=== PATIENT | female | born 1980 | race Caucasian/White ===

== ENCOUNTER 2017-01-13 22:38 | Inpatient (IN) | payer OTHER ==
[~2017-01-13] VITALS: Ht 160 cm; Wt 68.9 kg
[~2017-01-13 22:38] MED LIST: ALLERGY MED; MONT10TA24 PO; OMEP40CA6 PO; PROP20TA4 PO; SPIR25TA PO; URSO300C3 PO; [UNRECOGNIZED DRUG - REMARK]
[2017-01-14 00:07] LABS: URINE BLOOD (Dip) POC 2+ (NEGATIVE)
--- NOTE | 2017-01-14 00:09 | ERA ---
ER Documentation Chief Complaint Date/Time DATE: 01/14/17 TIME: 00:09 Chief Complaint rectal bleed,abd pain, abd & BLE swelling,hx liver cirrhosis HPI The patient is a 36-year-old female, presenting to the ER because of rectal bleeding yesterday with bright red blood. She has similar symptoms previously. He denies syncope, near syncope, dizziness, weakness. Denies neck pain, chest pain, abdominal pain, vomiting with dysuria, constipation. She does not smoke or drink Past medical history: Cirrhosis, hemorrhoids Past surgical history: Cholecystectomy, ROS All systems reviewed and are negative except as per history of present illness. Medications Home Meds Reported Medications Obeticholic Acid (Ocaliva) 5 Mg Tablet, 5 MG PO, TAB 01/14/17 Montelukast Sodium* (Montelukast Sodium*) 10 Mg Tablet, 10 MG PO QHS, #30 TAB 10/13/15 Propranolol Hcl* (Propranolol Hcl*) 20 Mg Tablet, 20 MG PO DAILY, TAB 10/13/15 Spironolactone* (Aldactone*) 25 Mg Tablet, 25 MG PO DAILY, #30 TAB 10/13/15 Ursodiol* (Ursodiol*) 300 Mg Capsule, 300 MG PO QPM, CAP 10/13/15 Omeprazole* (Omeprazole*) 40 Mg Capsule.dr, 40 MG PO DAILY, #30 CAP 10/13/15 Discontinued Reported Medications [Allergy Med] No Conflict Check, PRN 03/19/14 [Liver Cirrohsis Med] No Conflict Check 03/19/14 Allergies Allergies: Coded Allergies: No Known Drug Allergies (Unverified Allergy, Unknown, 01/14/17) PMhx/Soc History of Surgery: Yes (CHOLI.,C-SEC.X2) Anesthesia Reaction: No Hx Neurological Disorder: No Hx Respiratory Disorders: No Hx Cardiac Disorders: No Hx Psychiatric Problems: No Hx Miscellaneous Medical Probl: No Hx Alcohol Use: No Hx Substance Use: No Hx Tobacco Use: No Physical Exam Vitals Vital Signs Date Time Temp Pulse Resp B/P Pulse Ox O2 Delivery O2 Flow Rate FiO2 01/14/17 01:19 98.5 71 18 118/77 98 Room Air 01/13/17 22:47 98.5 80 18 124/70 98 Physical Exam Const: No acute distress. Pale Head: Atraumatic. Eyes: Normal Conjunctiva. ENT: Normal External Ears, Nose and Mouth. Neck: Full range of motion. No meningismus. Resp: Clear to auscultation bilaterally. Cardio: Regular rate and rhythm. Abd: Soft, non distended, normal bowel sounds, non tender. Skin: No petechiae or rashes. Back: No midline or flank tenderness. Ext: No cyanosis, or edema. Small external hemorrhoids Neur: Awake and alert. No focal deficit Psych: Normal Mood and Affect. Result Diagram: 01/14/17 0015 01/14/17 0015 Results 24 hrs Laboratory Tests Test 01/14/17 00:10 01/14/17 00:15 Bedside Urine pH (LAB) 6.0 Bedside Urine Protein (LAB) 1+ Bedside Urine Glucose (UA) Negative Bedside Urine Ketones (LAB) Negative Bedside Urine Blood 2+ Bedside Urine Nitrite (LAB) Negative Bedside Urine Leukocyte Esterase (L Negative White Blood Count 2.910^3/ul Red Blood Count 3.6810^6/ul Hemoglobin 9.0g/dl Hematocrit 28.6% Mean Corpuscular Volume 77.7fl Mean Corpuscular Hemoglobin 24.5pg Mean Corpuscular Hemoglobin Concent 31.5g/dl Red Cell Distribution Width 27.9% Platelet Count 4210^3/UL Mean Platelet Volume fl Neutrophils % 60.6% Lymphocytes % 25.6% Monocytes % 9.5% Eosinophils % 2.8% Basophils % 0.4% Nucleated Red Blood Cells % 0.0/100WBC Neutrophils # 1.710^3/ul Lymphocytes # 0.710^3/ul Monocytes # 0.310^3/ul Eosinophils # 0.110^3/ul Basophils # 0.010^3/ul Nucleated Red Blood Cells # 0.010^3/ul Prothrombin Time 17.1Sec Prothrombin Time Ratio 1.3 INR International Normalized Ratio 1.39 Activated Partial Thromboplast Time 25.4Sec Sodium Level 139mmol/L Potassium Level 3.9mmol/L Chloride Level 109mmol/L Carbon Dioxide Level 24mmol/L Anion Gap 10 Blood Urea Nitrogen 12mg/dl Creatinine 0.58mg/dl Glucose Level 92mg/dl Calcium Level 8.3mg/dl Total Bilirubin 3.1mg/dl Direct Bilirubin 1.70mg/dl Indirect Bilirubin 1.4mg/dl Aspartate Amino Transf (AST/SGOT) 149IU/L Alanine Aminotransferase (ALT/SGPT) 81IU/L Alkaline Phosphatase 378IU/L Total Protein 6.1g/dl Albumin 2.7g/dl Globulin 3.40g/dl Albumin/Globulin Ratio 0.79 Procedures/MDM MEDICAL MAKING DECISION: The patient is a 35-year-old female, presenting with acute hematochezia, with severe thrombocytopenia. The differential diagnoses considered include but are not limited to hemorrhoids , gastritis, peptic ulcer disease, esophageal varices, Sanna-Kessler tear, carcinoma, polyp, hemorrhoid, fissure, diverticulosis, angiodysplasia. Departure Diagnosis: Primary Impression: Hematochezia Additional Impressions: Thrombocytopenia Pancytopenia Condition: Stable Comments I discussed the findings with the patient. I discussed the patient with the on- call hospitalist Dr. Ling at 2:30 AM who was made aware of the lab, the treatment, the patient condition. The patient is admitted to medical surgery bed ZAID COVARRUBIAS MD Jan 14, 2017 00:09
[2017-01-14 00:31] LABS: ADD SCAN DIFF NO
[2017-01-14 00:44] LABS: ABNORMAL IP MESSAGE 1; BASOPHILS % 0.4 % (0.0-2.0); EOSINOPHILS # 0.1 10^3/ul (0.0-0.5); EOSINOPHILS % 2.8 % (0.0-7.0); HEMATOCRIT 28.6 % (37.0-47.0); LYMPHOCYTES # 0.7 10^3/ul (0.8-2.9); LYMPHOCYTES % 25.6 % (15.0-51.0); MEAN CORPUSCULAR HEMOGLOBIN 24.5 pg (29.0-33.0); MEAN CORPUSCULAR HGB CONC 31.5 g/dl (32.0-37.0); MEAN CORPUSCULAR VOLUME 77.7 fl (82.0-101.0); MONOCYTE # 0.3 10^3/ul (0.3-0.9); MONOCYTES % 9.5 % (0.0-11.0); NEUTROPHIL # 1.7 10^3/ul (1.6-7.5); NEUTROPHILS % 60.6 % (39.0-77.0); RED BLOOD COUNT 3.68 10^6/ul (4.20-5.40); RED CELL DISTRIBUTION WIDTH 27.9 % (11.5-14.5); WHITE BLOOD COUNT 2.9 10^3/ul (4.8-10.8)
[2017-01-14] MEDS ORDERED: OBET5TAB PO (00:47)
[2017-01-14 01:01] LABS: INR 1.39; PROTIME 17.1 Sec (12.2-14.2); PT RATIO 1.3
[2017-01-14 01:02] LABS: PARTIAL THROMBOPLASTIN TIME 25.4 Sec (25.0-35.0)
[2017-01-14 01:05] LABS: PLATELET COUNT 42 10^3/UL (140-415)
[2017-01-14 01:10] LABS: ALBUMIN 2.7 g/dl (3.3-4.9); ALBUMIN/GLOBULIN RATIO 0.79; BILIRUBIN,DIRECT 1.7 mg/dl (0.00-0.20); BILIRUBIN,INDIRECT 1.4 mg/dl (0-1.1); BILIRUBIN,TOTAL 3.1 mg/dl (0.2-1.3); CALCIUM 8.3 mg/dl (8.4-10.2); CREATININE 0.58 mg/dl (0.44-1.00); POTASSIUM 3.9 mmol/L (3.5-5.1)
[2017-01-14 01:19] VITALS: TEMP 98.5
[2017-01-14 01:39] LABS: TOTAL PROTEIN 6.1 g/dl (6.1-8.1)
[2017-01-14] MEDS ORDERED: ONDANSETRON 4 MG INJ IV PRN (03:30)
[2017-01-14] MEDS ORDERED: NACL 0.9% 3 ML SYG IV SCH (03:30)
[2017-01-14 04:33] VITALS: BP 108/58; RESP 19
[2017-01-14 04:40] VITALS: Ht 160 cm; Wt 68.9 kg
[2017-01-14] MEDS: PANTOPRAZOLE 40 MG INJ IV SCH (05:30)
[2017-01-14] MEDS ORDERED: FUROSEMIDE 40 MG INJ IV ONE (05:30)
--- NOTE | 2017-01-14 06:51 | HP ---
Date/Time of Note Date/Time of Note DATE: 01/14/17 TIME: 06:45 Assessment/Plan VTE Prophylaxis VTE Prophylaxis Intervention: SCD's Lines/Catheters IV [facility]from [facility] Saline Lock Assessment/Plan Chief Complaint/Hosp Course This is a 36-year-old female being admitted to the [facility] floor for: #1 rectal bleed: Patient states that she noticed bright red blood per rectum for the past 2 days. In the ED no blood was noted rectally. Will obtain fecal occult blood sample. Will trend H&H every 6 hours. Type and screen the patient. Will consult GI for further treatment strategy. At the current time will keep patient n.p.o. until evaluated by GI. #2 cirrhosis: The patient and the daughter state that ever since she started her medication ocaliva approximately 2 months ago that she has been feeling fatigued and not herself. At the current time we will continue her home medications however we will hold Ocaliva Also at the current time will give the patient 1 dose of Lasix 40 mg IV 1. I am hesitant to start her on lactulose right now secondary to possible lower GI bleeding. Will hold this for now until evaluated by GI. Will also obtain an ammonia level. LFTs are elevated. #3 thrombocytopenia: Patient's platelet count right now is 42,000. As the patient has been experiencing bleeding. We will transfuse her 1 unit of platelets. Patient is agreeable to this. Will obtain type and screen. #4 microcytic anemia. Will obtain iron studies. Medications and further recommendations will be implemented as per the hospital course and then any G recommendations as per #1. #5 DVT and GI prophylaxis: SCDs, Protonix. Further treatment strategy will be implemented as per the clinical course Problems: HPI/ROS Admit Date/Time Admit Date/Time Jan 14, 2017 at 02:37 Hx of Present Illness Chief complaint: Rectal bleeding The patient is a 36-year-old female, presenting to the ER because of rectal bleeding yesterday with bright red blood. She has similar symptoms previously. He denies syncope, near syncope, dizziness, weakness. Denies neck pain, chest pain, vomiting with dysuria, constipation. She does not smoke or drink. Of note patient and her family member also state that the patient recently has been more lethargic. She also has noticed more distention in her abdomen with some occasional right upper quadrant pain. She also has noticed at times some swelling in her lower extremities. Also her eyes have been more yellow. She has decreased appetite and also is a bit more irritable. Allergies: NKDA Medications: See KYREE MORRIS Const: As per HPI Eyes : As per his ENT: No pain, sore throat, congestion, congestion, dysphagia or discharge Respiratory: No shortness of breath, cough, sputum, wheezing, or pleuritic pain Cardiovascular: No chest pain, palpitation, PND, or edema GI : As per HPI Genitourinary: No dysuria, hematuria, flank pain , discharge or CVA tenderness Musculoskeletal: No joint pain, back pain, neck pain, restricted range of motion in neck or joints Skin: No rash, bruising or hives Neuro: No headache, dizziness, syncope, seizure, focal weakness Endocrine: No polyuria, polydipsia, temperature intolerance Psych: No hallucination, depression, anxiety or suicidal ideation PMH/Family/Social Past Medical History Cirrhosis, gastritis, Past Surgical History Cholecystectomy, 2 C-sections, Family History Significant Family History: cancer (Liver cancer in both of her grandfathers) Social History Alcohol Use: none Smoking Status: Never smoker Drug Use: none Exam/Review of Systems Vital Signs Vitals Vital Signs Date Time Temp Pulse Resp B/P Pulse Ox O2 Delivery O2 Flow Rate FiO2 01/14/17 04:33 98.0 65 19 108/58 100 01/14/17 01:19 Room Air Intake and Output 01/13/17 01/13/17 01/14/17 15:00 23:00 07:00 Intake Total 0 ml Output Total 800 ml Balance -800 ml Exam Exam General: Patient is well-developed and laying in bed in no acute distress HEENT: Atraumatic, normocephalic. The pupils are equal, round and reactive. Scleral icterus Neck: Supple with full range of motion. No rigidity or meningismus Chest: Nontender Lungs: Clear to auscultation bilaterally no crackles rales or wheezing Heart: Normal S1-S2, Regular rhythm and rate. No overt murmur appreciated Abdomen: Soft, tender to palpation of the right upper quadrant, mild distention noted, normal bowel sounds. Extremities: Trace edema of the lower extremities Neurologic: Normal mental status, speech normal, cranial nerves II through XII are intact, motor and sensory are intact, no focal weakness Labs Result Diagram: 01/14/17 0015 01/14/17 0015 Medications Medications Current Medications Ondansetron HCl (Zofran Inj) 4 mg Q6H PRN IV NAUSEA AND/OR VOMITING; Start at 03:30 Pantoprazole (Protonix Iv) 40 mg DAILY@06 IV Last administered on 01/14/17t 05: 30; Admin Dose 40 MG; Start 01/14/17 at 06:00 Montelukast Sodium (Singulair) 10 mg QHS PO ; Start 01/14/17 at 21:00 Propranolol HCl (Inderal) 20 mg DAILY PO ; Start 01/14/17 at 09:00 Spironolactone (Aldactone) 25 mg DAILY PO ; Start 01/14/17 at 09:00 Ursodiol (Actigall) 300 mg BID PO ; Start 01/14/17 at 09:00 MICHELLE MUÑOZ Jan 14, 2017 06:51
[2017-01-14 08:28] LABS: HEMATOCRIT 29.6 % (37.0-47.0); HEMOGLOBIN 9.1 g/dl (12.0-16.0)
[2017-01-14 08:39] VITALS: BP 90/50; RESP 16
[2017-01-14 09:07] LABS: IRON 60 ug/dl (35-150)
[2017-01-14 09:16] LABS: TOTAL IRON BINDING CAPACITY 397 ug/dl (241-421)
--- NOTE | 2017-01-14 09:46 | PN ---
Date/Time of Note Date/Time of Note DATE: 01/14/17 TIME: 09:45 Assessment/Plan VTE Prophylaxis VTE Prophylaxis Intervention: SCD's Lines/Catheters IV Catheter Type (from Nrs): Saline Lock Assessment/Plan Assessment/Plan 36 yo F with cirrhosis, h/o hemorrhoids here with BRBPR PLAN GI to see today hgb 9, goal >7 cont home meds DVT prophx with SCDs only Subjective 24 Hr Interval Summary Free Text/Dictation nad, resting in bed Exam/Review of Systems Vital Signs Vitals Vital Signs Date Time Temp Pulse Resp B/P Pulse Ox O2 Delivery O2 Flow Rate FiO2 01/14/17 08:39 97.7 67 16 90/50 98 01/14/17 01:19 Room Air Intake and Output 01/13/17 01/13/17 01/14/17 15:00 23:00 07:00 Intake Total 0 ml Output Total 800 ml Balance -800 ml Exam jaundiced resp nonlabored responds to questions appropriately moves exts freely no rashes Results Result Diagram: 01/14/17 0710 01/14/17 0015 Results 24 hrs Laboratory Tests Test 01/14/17 00:10 01/14/17 00:15 01/14/17 03:45 01/14/17 07:10 Bedside Urine pH (LAB) 6.0 Bedside Urine Protein (LAB) 1+ H Bedside Urine Glucose (UA) Negative Bedside Urine Ketones (LAB) Negative Bedside Urine Blood 2+ H Bedside Urine Nitrite (LAB) Negative Bedside Urine Leukocyte Esterase (L Negative White Blood Count 2.9 L Red Blood Count 3.68 L Hemoglobin 9.0 L 9.1 L Hematocrit 28.6 L 29.6 L Mean Corpuscular Volume 77.7 L Mean Corpuscular Hemoglobin 24.5 L Mean Corpuscular Hemoglobin Concent 31.5 L Red Cell Distribution Width 27.9 H Platelet Count 42 L Mean Platelet Volume Neutrophils % 60.6 Lymphocytes % 25.6 Monocytes % 9.5 Eosinophils % 2.8 Basophils % 0.4 Nucleated Red Blood Cells % 0.0 Neutrophils # 1.7 Lymphocytes # 0.7 L Monocytes # 0.3 Eosinophils # 0.1 Basophils # 0.0 Nucleated Red Blood Cells # 0.0 Prothrombin Time 17.1 H Prothrombin Time Ratio 1.3 INR International Normalized Ratio 1.39 Activated Partial Thromboplast Time 25.4 Sodium Level 139 Potassium Level 3.9 Chloride Level 109 Carbon Dioxide Level 24 Anion Gap 10 Blood Urea Nitrogen 12 Creatinine 0.58 Glucose Level 92 Calcium Level 8.3 L Total Bilirubin 3.1 H Direct Bilirubin 1.70 H Indirect Bilirubin 1.4 H Aspartate Amino Transf (AST/SGOT) 149 H Alanine Aminotransferase (ALT/SGPT) 81 H Alkaline Phosphatase 378 H Total Protein 6.1 Albumin 2.7 L Globulin 3.40 H Albumin/Globulin Ratio 0.79 Stool Occult Blood POSITIVE Iron Level 60 Total Iron Binding Capacity 397 Percent Iron Saturation 15 L Ammonia 31 H Medications Medications Current Medications Ondansetron HCl (Zofran Inj) 4 mg Q6H PRN IV NAUSEA AND/OR VOMITING; Start at 03:30 Pantoprazole (Protonix Iv) 40 mg DAILY@06 IV Last administered on 01/14/17t 05: 30; Admin Dose 40 MG; Start 01/14/17 at 06:00 Montelukast Sodium (Singulair) 10 mg QHS PO ; Start 01/14/17 at 21:00 Propranolol HCl (Inderal) 20 mg DAILY PO ; Start 01/14/17 at 09:00 Spironolactone (Aldactone) 25 mg DAILY PO ; Start 01/14/17 at 09:00 Ursodiol (Actigall) 300 mg BID PO ; Start 01/14/17 at 09:00 IBIS CROWE MD Jan 14, 2017 09:46
--- NOTE | 2017-01-14 10:14 | CONS ---
Date/Time of Note Date/Time of Note DATE: 01/14/17 TIME: 09:58 Assessment/Plan Assessment/Plan Additional Assessment/Plan Assessment * Hematochezia Lower GI bleed vs upper GI bleed * Thrombocytopenia * Cirrhosis of Liver Plan * Colonoscopy /EGD risks and benefit explained to patient and agreed with planned procedure * Trend liver enzymes * Monitor Hemoglobin and hematocrit and transfuse with 1 unit PRBC<hgb7.5,2 units PRBC hgb<7 * May have clear liquids Consultation Date/Type/Reason Admit Date/Time Jan 14, 2017 at 02:37 Date of Consultation: Jan 14, 2017 Type of Consultation: gastroenterology Reason for Consultation hematochezia Referring Provider: IBIS CROWE MD Hx of Present Illness 36 year old female with past medical history of liver cirrhosis, thrombocytopenia was brought to emergency room complaining of hematochezia x 3 days ,about 2 tsp per bout ,with no abdominal pain,nausea,hematemesis,on nausea.She denies any chronic intake of NSAIDs.She also had EGD last 05/2016 no esophageal varices,moderate gastritis. Emergency room work up revealed anemia with hemoglobin 9 platelet count 42,PT 17.1,INR 1.39,Total bilirubin 3.1,AST 149,ALT 81,alkaline phosphatase 378.ammonia 31,stool occult blood positive Presently ,no episode of bleeding and awaiting transfusion of platelet. Constitutional: improved, no complaints Eyes: no complaints ENT: no complaints Respiratory: no complaints Cardiovascular: no complaints Gastrointestinal: blood Genitourinary: no complaints Musculoskeletal: no complaints Skin: no complaints Neurologic: no complaints Endocrine: no complaints Lymphatic: no complaints Psychological: nl mood/affect, no complaints Immunologic: no complaints Past Medical History Medical History: other (liver cirrhosis) Past Surgical History Past Surgical Hx: no surgical history Family History Significant Family History: no pertinent family hx Social History Alcohol Use: none Smoking Status: Never smoker Drug Use: none Exam/Review of Systems Vital Signs Vitals Vital Signs Date Time Temp Pulse Resp B/P Pulse Ox O2 Delivery O2 Flow Rate FiO2 01/14/17 08:39 97.7 67 16 90/50 98 01/14/17 01:19 Room Air Intake and Output 01/13/17 01/13/17 01/14/17 15:00 23:00 07:00 Intake Total 0 ml Output Total 800 ml Balance -800 ml Exam Constitutional: alert, oriented, well developed Psych: nl mood/affect, no complaints Head: atraumatic, normocephalic Eyes: EOMI, PERRL, icteric, nl conjunctiva, nl lids ENMT: nl external ears & nose, nl lips & teeth, nl nasal mucosa & septum Neck: non-tender, supple Respiratory: clear to auscultation, normal air movement Cardiovascular: nl pulses, regular rate and rhythm Gastrointestinal: nl liver, spleen, non-tender, soft Musculoskeletal: nl extremities to inspection, nl gait and stance Extremities: normal pulses Neurological: [employer] II-XII intact, nl mental status, nl speech, nl strength Skin: nl turgor, No rash or lesions Lymph: nl lymph nodes Results Result Diagram: 01/14/17 0710 01/14/17 0015 Results 24 hrs Laboratory Tests Test 01/14/17 00:10 01/14/17 00:15 01/14/17 03:45 01/14/17 07:10 Bedside Urine pH (LAB) 6.0 Bedside Urine Protein (LAB) 1+ H Bedside Urine Glucose (UA) Negative Bedside Urine Ketones (LAB) Negative Bedside Urine Blood 2+ H Bedside Urine Nitrite (LAB) Negative Bedside Urine Leukocyte Esterase (L Negative White Blood Count 2.9 L Red Blood Count 3.68 L Hemoglobin 9.0 L 9.1 L Hematocrit 28.6 L 29.6 L Mean Corpuscular Volume 77.7 L Mean Corpuscular Hemoglobin 24.5 L Mean Corpuscular Hemoglobin Concent 31.5 L Red Cell Distribution Width 27.9 H Platelet Count 42 L Mean Platelet Volume Neutrophils % 60.6 Lymphocytes % 25.6 Monocytes % 9.5 Eosinophils % 2.8 Basophils % 0.4 Nucleated Red Blood Cells % 0.0 Neutrophils # 1.7 Lymphocytes # 0.7 L Monocytes # 0.3 Eosinophils # 0.1 Basophils # 0.0 Nucleated Red Blood Cells # 0.0 Prothrombin Time 17.1 H Prothrombin Time Ratio 1.3 INR International Normalized Ratio 1.39 Activated Partial Thromboplast Time 25.4 Sodium Level 139 Potassium Level 3.9 Chloride Level 109 Carbon Dioxide Level 24 Anion Gap 10 Blood Urea Nitrogen 12 Creatinine 0.58 Glucose Level 92 Calcium Level 8.3 L Total Bilirubin 3.1 H Direct Bilirubin 1.70 H Indirect Bilirubin 1.4 H Aspartate Amino Transf (AST/SGOT) 149 H Alanine Aminotransferase (ALT/SGPT) 81 H Alkaline Phosphatase 378 H Total Protein 6.1 Albumin 2.7 L Globulin 3.40 H Albumin/Globulin Ratio 0.79 Stool Occult Blood POSITIVE Iron Level 60 Total Iron Binding Capacity 397 Percent Iron Saturation 15 L Ammonia 31 H Medications Medications Current Medications Ondansetron HCl (Zofran Inj) 4 mg Q6H PRN IV NAUSEA AND/OR VOMITING; Start at 03:30 Pantoprazole (Protonix Iv) 40 mg DAILY@06 IV Last administered on 01/14/17t 05: 30; Admin Dose 40 MG; Start 01/14/17 at 06:00 Montelukast Sodium (Singulair) 10 mg QHS PO ; Start 01/14/17 at 21:00 Propranolol HCl (Inderal) 20 mg DAILY PO ; Start 01/14/17 at 09:00 Spironolactone (Aldactone) 25 mg DAILY PO ; Start 01/14/17 at 09:00 Ursodiol (Actigall) 300 mg BID PO ; Start 01/14/17 at 09:00 HARISH BLACKWOOD MD Jan 14, 2017 10:10
[2017-01-14] MEDS: SPIRONOLACTONE 25 MG TAB PO SCH (10:20)
[2017-01-14] MEDS: URSODIOL 300 MG CAP PO SCH ×2 (10:20→21:00)
[2017-01-14] MEDS: PROPRANOLOL 20 MG TAB PO SCH (10:21)
[2017-01-14 13:14] LABS: HEMATOCRIT 28.1 % (37.0-47.0); HEMOGLOBIN 8.4 g/dl (12.0-16.0)
[2017-01-14] MEDS ORDERED: BISACODYL (EC) 5 MG TAB PO ONE ×2 (16:00)
[2017-01-14] MEDS ORDERED: POLYETHYLENE GLYCOL 3350 119 GM POWDER PO ONE ×2 (16:00→18:30)
[2017-01-14] MEDS ORDERED: MAGNESIUM CITRATE 300 ML BTL PO ONE (17:30)
[2017-01-14 19:23] LABS: HEMATOCRIT 26.8 % (37.0-47.0); HEMOGLOBIN 8.3 g/dl (12.0-16.0)
[2017-01-14 20:02] VITALS: BP 120/70; RESP 18
[2017-01-14] MEDS: MONTELUKAST 10 MG TAB PO SCH (21:19)
[2017-01-15] VITALS (14 sets, daily range): BP systolic 99–128; BP diastolic 60–74; PULSE 56–62; RESP 12–20
[2017-01-15] MEDS ORDERED: morphine 10 MG INJ IM PRN (03:00)
[2017-01-15] MEDS ORDERED: morphine 2 MG INJ IV PRN (03:00)
[2017-01-15] MEDS: PANTOPRAZOLE 40 MG INJ IV SCH (05:20)
[2017-01-15 06:24] LABS: ADD SCAN DIFF NO
[2017-01-15 06:31] LABS: ABNORMAL IP MESSAGE 1; BASOPHILS % 0.7 % (0.0-2.0); EOSINOPHILS # 0.1 10^3/ul (0.0-0.5); HEMATOCRIT 28.5 % (37.0-47.0); HEMOGLOBIN 8.7 g/dl (12.0-16.0); LYMPHOCYTES % 34.1 % (15.0-51.0); MEAN CORPUSCULAR HEMOGLOBIN 24.2 pg (29.0-33.0); MEAN CORPUSCULAR HGB CONC 30.5 g/dl (32.0-37.0); MEAN CORPUSCULAR VOLUME 79.4 fl (82.0-101.0); MEAN PLATELET VOLUME 9.3 fl (7.4-10.4); MONOCYTE # 0.2 10^3/ul (0.3-0.9); MONOCYTES % 7.3 % (0.0-11.0); NEUTROPHIL # 1.7 10^3/ul (1.6-7.5); NEUTROPHILS % 54.6 % (39.0-77.0); RED BLOOD COUNT 3.59 10^6/ul (4.20-5.40); RED CELL DISTRIBUTION WIDTH 28.1 % (11.5-14.5)
[2017-01-15 07:05] LABS: CALCIUM 8.3 mg/dl (8.4-10.2); CREATININE 0.61 mg/dl (0.44-1.00); POTASSIUM 3.4 mmol/L (3.5-5.1)
--- NOTE | 2017-01-15 08:43 | GILP ---
DATE OF PROCEDURE: PROCEDURE: Colonoscopy to cecum. BRIEF HISTORY AND INDICATIONS: Patient with hematochezia. PREMEDICATION: Versed 3 mg, fentanyl 75 mcg, administered IV push by Dr. Manzano. INSTRUMENT USED: Olympus colonoscope. PREPARATION: Adequate. TECHNIQUE: After informed consent, with the patient/relatives understanding the procedure, its indic ations potential risks and complications, including but not limited to: allergic reaction, bleeding, perforation, infection, missed lesions and after all pertinent questions were answered to the patie nt's satisfaction, the patient/relatives signed the witnessed informed consent. Following this, premedication was administered slowly IV push by under careful cardiovascular and re spiratory monitoring with pulse oximetry, automatic blood pressure and space operations. Once the sedativ e effect was achieved, the patient was placed in the left lateral decubitus position, digital rectal examination was performed. The colonoscope was then introduced and advanced under visual control th roughout all segments of the colon including: the rectum, sigmoid, descending colon, splenic flexure , transverse colon, hepatic flexure, ascending colon and finally reaching the cecum which was clearl y identified by transillumination, finger indentation and the ileocecal valve. Careful examination o f the mucosa of the lower gastrointestinal tract both on insertion as well as withdrawal of the inst rument disclosed the following findings: Rectal mucosa: Small external hemorrhoids are present. Colonic mucosa: The colonic mucosa was unremarkable throughout. The ileocecal valve was clearly id entified and appears unremarkable. The instrument was withdrawn, reexamining the mucosa in detail. No additional abnormalities were noted with the exception of moderate size internal hemorrhoids. The instrument was then withdrawn, the patient tolerated the procedure well and was transferred out of the Endoscopy Suite awake and in good condition to continue recovery under observation. IMPRESSION: 1. Normal colonic mucosa to cecum. 2. Moderate size internal hemorrhoids, likely source of hematochezia. 3. Small external hemorrhoids. PLAN: The patient will be continued on the present regimen. Conservative management of hemorrhoida l disease will be instituted. Diet will be advanced. Dictated By: HARISH MANZANO MS/FAM Conf#: [id number] DID#: [id number]
--- NOTE | 2017-01-15 08:49 | GILP ---
DATE OF PROCEDURE: PROCEDURE: Esophagogastroduodenoscopy with biopsies. BRIEF HISTORY AND INDICATIONS: The patient is being evaluated for a history of cirrhosis of the [facility] er, due for surveillance EGD for varices. PREMEDICATION: Monitored anesthesia care by anesthesiologist. SURGEON: Harish Manzano MD PREMEDICATION: Versed 3 mg, fentanyl 75 mcg, administered IV push by Dr. Manzano. INSTRUMENT USED: Olympus panendoscope. TECHNIQUE: After informed consent, with the patient/relatives understanding the procedure, its indic ations, potential risks and complications, including but not limited to: allergic reaction, bleeding , perforation or infection, and after all pertinent questions were answered to the patient's satisfa ction, the patient/relatives signed witnessed informed consent. Following this, premedication was administered slowly IV push under careful cardiovascular and respi ratory monitoring with pulse oximetry, automatic blood pressure and monitoring analyst. Once the sedative effect was achieved the patient was place in the left lateral decubitus, the panen doscope was introduced and advanced under visual control. Careful examination of the upper gastrointestinal tract, both on insertion as well as withdrawal of the instrument disclosed the following findings: ESOPHAGUS: There is no evidence of significant esophageal varices. STOMACH: Upon entrance to the stomach air was insufflated. The gastric chicas distended normally. There is erythema of the mucosa, which is very mild. Biopsies were obtained to rule out H. pylori i nfection. The possibility of portal hypertensive gastropathy appears likely. PYLORUS: The pylorus appears patent and within normal limits, with no evidence of gastric outlet obs truction. DUODENUM: The duodenal mucosa was carefully examined in the duodenal bulb as well as the second port ion of the duodenum and appears unremarkable with no evidence of duodenitis, ulcer or neoplasm. The instrument was then withdrawn, the patient tolerated the procedure well and was transfer out of the endoscopy suite awake, and in good condition to continue recovery under observation IMPRESSION: 1. No evidence of esophageal varices. 2. Mild gastritis versus portal hypertensive gastropathy. Rule out H. pylori infection. Biopsies were obtained. PLAN: The patient will be treated with PPIs. Pathology will be reviewed as soon as available and elder rveillance endoscopy for varices in 6 months is recommended. Dictated By: HARISH MANZANO MS/FAM Conf#: [id number] [facility]#: [id number]
[2017-01-15] MEDS: URSODIOL 300 MG CAP PO SCH ×2 (09:59→20:24)
[2017-01-15] MEDS: SPIRONOLACTONE 25 MG TAB PO SCH (09:59)
[2017-01-15] MEDS: PROPRANOLOL 20 MG TAB PO SCH (09:59)
[2017-01-15 10:10] LABS: PLATELET COUNT 55 10^3/UL (140-415)
[2017-01-15] MEDS ORDERED: FUROSEMIDE 40 MG TAB PO ONE (10:30)
[2017-01-15] MEDS ORDERED: FENTAnyl 50 MCG/ML VIAL ONE (12:12)
[2017-01-15] MEDS ORDERED: MIDAZOLAM 1 MG/ML 2 ML INJ ONE ×2 (12:12)
--- NOTE | 2017-01-15 12:13 | RADRPT ---
PROCEDURE: US Abdomen. Limited. CLINICAL INDICATION: Ascites TECHNIQUE: Multiple real-time images were acquired of the patient's abdomen utilizing a high reso lution transducer. COMPARISON: None FINDINGS: Mild intra-abdominal ascites is present. IMPRESSION: There is a small amount of intra-abdominal ascites visible on ultrasound. RPTAT: AA .Jesse Hoover MD, MD Date Time Electronically viewed and signed by .Jesse Hoover MD, MD on 01/15/2017 12:13 .J/
--- NOTE | 2017-01-15 13:49 | PN ---
Date/Time of Note Date/Time of Note DATE: 01/15/17 TIME: 13:44 Assessment/Plan VTE Prophylaxis VTE Prophylaxis Intervention: SCD's Lines/Catheters IV Catheter Type (from [facility]): Saline Lock Assessment/Plan Assessment/Plan 36 yo F with cirrhosis of unclear etiology presented with BRBPR. CScope this AM with int/ext hemorrhoids. #BRBPR 2/2 int hemorrhoids: -conservative management with daily scheduled psyllium -hgb stable, change monitoring to q daily #gastritis: incidental finding on EGD 01.15 PPI as per GI repeat EGD in 6m for varices screening. None seen on this EGD #cirrhosis: abd pain to eval for ascites lasix x 1 cont home Aldactone, bb, ursidiol DVT Prohx: SCDs discharge in AM if tolerating PO and hgb stable Subjective 24 Hr Interval Summary Free Text/Dictation Pt states her belly feels a little tight. Re the etio of her cirrhosis, pt repots she had a biopsy in [place] which was inconclusive and the plan is for her to get a repeat one here with her specialist in the near future. States legs were more swollen yesterday but she was given a water pill and this improved. Pt had her endoscopies earlier this morning, results discussed with patient Exam/Review of Systems Vital Signs Vitals Vital Signs Date Time Temp Pulse Resp B/P Pulse Ox O2 Delivery O2 Flow Rate FiO2 01/15/17 09:50 97.5 62 18 128/63 97 Room Air 01/15/17 09:25 2.0 Intake and Output 01/14/17 01/14/17 01/15/17 15:00 23:00 07:00 Intake Total 1670 ml 3120 ml Output Total 1100 ml 1300 ml Balance 570 ml 1820 ml Exam nad no mrg lungs clear mild diffuse abd distension, no rebound or guarding, no fluid wave no le edema endoscopy results reviewed Results Result Diagram: 01/15/17 0551 01/15/17 0551 Results 24 hrs Laboratory Tests Test 01/14/17 19:00 01/15/17 05:51 Hemoglobin 8.3 L 8.7 L Hematocrit 26.8 L 28.5 L White Blood Count 3.0 L Red Blood Count 3.59 L Mean Corpuscular Volume 79.4 L Mean Corpuscular Hemoglobin 24.2 L Mean Corpuscular Hemoglobin Concent 30.5 L Red Cell Distribution Width 28.1 H Platelet Count 55 #L Mean Platelet Volume 9.3 Neutrophils % 54.6 Lymphocytes % 34.1 Monocytes % 7.3 Eosinophils % 3.0 Basophils % 0.7 Nucleated Red Blood Cells % 0.0 Neutrophils # 1.7 Lymphocytes # 1.0 Monocytes # 0.2 L Eosinophils # 0.1 Basophils # 0.0 Nucleated Red Blood Cells # 0.0 Sodium Level 136 Potassium Level 3.4 L Chloride Level 105 Carbon Dioxide Level 26 Anion Gap 8 Blood Urea Nitrogen 7 Creatinine 0.61 Glucose Level 74 Calcium Level 8.3 L Medications Medications Current Medications Ondansetron HCl (Zofran Inj) 4 mg Q6H PRN IV NAUSEA AND/OR VOMITING; Start at 03:30 Pantoprazole (Protonix Iv) 40 mg DAILY@06 IV Last administered on 01/15/17 05: 20; Admin Dose 40 MG; Start 01/14/17 at 06:00 Montelukast Sodium (Singulair) 10 mg QHS PO Last administered on 01/14/17 21: 19; Admin Dose 10 MG; Start 01/14/17 at 21:00 Propranolol HCl (Inderal) 20 mg DAILY PO Last administered on 01/15/17 09:59; Admin Dose 20 MG; Start 01/14/17 at 09:00 Spironolactone (Aldactone) 25 mg DAILY PO Last administered on 01/15/17 09:59 ; Admin Dose 25 MG; Start 01/14/17 at 09:00 Ursodiol (Actigall) 300 mg BID PO Last administered on 01/15/17 09:59; Admin Dose 300 MG; Start 01/14/17 at 09:00 Morphine Sulfate (morphine) 2 mg Q4H PRN IV PAIN Last administered on 02:44; Admin Dose 2 MG; Start 01/15/17 at 03:00 IBIS CROWE MD Jan 15, 2017 13:49
[2017-01-15] MEDS: PSYLLIUM 28% PACKET PO SCH (17:18)
[2017-01-15] MEDS: MONTELUKAST 10 MG TAB PO SCH (20:24)
[2017-01-16] MEDS ORDERED: PANTOPRAZOLE (EC) 40 MG TAB PO SCH (06:00)
[2017-01-16 06:42] LABS: ADD SCAN DIFF NO
[2017-01-16 07:01] LABS: ABNORMAL IP MESSAGE 1; BASOPHILS % 0.5 % (0.0-2.0); EOSINOPHILS # 0.1 10^3/ul (0.0-0.5); EOSINOPHILS % 3.1 % (0.0-7.0); HEMATOCRIT 25.1 % (37.0-47.0); HEMOGLOBIN 7.9 g/dl (12.0-16.0); LYMPHOCYTES # 0.7 10^3/ul (0.8-2.9); LYMPHOCYTES % 33.7 % (15.0-51.0); MEAN CORPUSCULAR HEMOGLOBIN 24.7 pg (29.0-33.0); MEAN CORPUSCULAR HGB CONC 31.5 g/dl (32.0-37.0); MEAN CORPUSCULAR VOLUME 78.4 fl (82.0-101.0); MEAN PLATELET VOLUME 9.8 fl (7.4-10.4); MONOCYTE # 0.2 10^3/ul (0.3-0.9); MONOCYTES % 10.4 % (0.0-11.0); NEUTROPHILS % 52.3 % (39.0-77.0); PLATELET COUNT 48 10^3/UL (140-415); RED CELL DISTRIBUTION WIDTH 27.3 % (11.5-14.5); WHITE BLOOD COUNT 1.9 10^3/ul (4.8-10.8)
[2017-01-16] MEDS: PROPRANOLOL 20 MG TAB PO SCH (09:00)
[2017-01-16 09:44] VITALS: BP 101/56; PULSE 73; RESP 18
[2017-01-16] MEDS: URSODIOL 300 MG CAP PO SCH (09:47)
[2017-01-16] MEDS: SPIRONOLACTONE 25 MG TAB PO SCH (09:47)
[2017-01-16] MEDS: PSYLLIUM 28% PACKET PO SCH (09:47)
[2017-01-16] MEDS ORDERED: DOCU240C14 PO (14:06)
[2017-01-16] MEDS ORDERED: METAM PO (14:06)
--- NOTE | 2017-01-16 14:07 | PDOCDIS ---
Discharge Instructions CONDITION Patient Condition: Good HOME CARE INSTRUCTIONS: Special Diet: 2gm Na ACTIVITY: Activity Restrictions: Slowly Increase Activity FOLLOW UP/APPOINTMENTS Appointments PCP within 7 days technical sales support specialist/liver doctor within 7 days you will need another EGD/upper endoscopy in 6 months to make sure you do not have esophageal varices IBIS CROWE MD Jan 16, 2017 14:07
--- NOTE | 2017-01-16 14:10 | DS ---
Date/Time of Note Date/Time of Note DATE: 01/16/17 TIME: 14:09 Discharge Summary Admission/Discharge Info Admit Date/Time Jan 14, 2017 at 02:37 Discharge Date/Time Final Diagnosis hematochezia 2/2 internal hemorrhoids, gastritis Patient Condition: Good Consults Gastroenterology Procedures 01.15 CScope IMPRESSION: 1. Normal colonic mucosa to cecum. 2. Moderate size internal hemorrhoids, likely source of hematochezia. 3. Small external hemorrhoids. EGD IMPRESSION: 1. No evidence of esophageal varices. 2. Mild gastritis versus portal hypertensive gastropathy. Rule out H. pylori infection. Biopsies were obtained. Abd US IMPRESSION: There is a small amount of intra-abdominal ascites visible on ultrasound. Hx of Present Illness Chief complaint: Rectal bleeding The patient is a 36-year-old female, presenting to the ER because of rectal bleeding yesterday with bright red blood. She has similar symptoms previously. He denies syncope, near syncope, dizziness, weakness. Denies neck pain, chest pain, vomiting with dysuria, constipation. She does not smoke or drink. Of note patient and her family member also state that the patient recently has been more lethargic. She also has noticed more distention in her abdomen with some occasional right upper quadrant pain. She also has noticed at times some swelling in her lower extremities. Also her eyes have been more yellow. She has decreased appetite and also is a bit more irritable. Allergies: NKDA Medications: See [facility] Hospital Course 36 year old female with past medical history of liver cirrhosis of unclear etiology admitted for hematochezia. Upper and lower endoscopies notable for gastritis, NO esophageal varices, and both internal and external hemorrhoids. The internal hemorrhoids are believed to be the cause of her hematochezia. For gastritis GI advised daily PPI. For hemorrhoids GI advised conservative management. Pt was started on stool softeners and psyllium GI also advising repeat EGD in 6 mos for variceal surveillance. Only change from admit meds is new stool softeners and psyllium. Home Meds Active Scripts Docusate Calcium* (Docusate Calcium*) 240 Mg Capsule, 240 MG PO DAILY for 30 Days, #30 CAP Prov:IBIS CROWE MD 01/16/17 Psyllium* (Metamucil*) 1 Pkt Susp, 1 PKT PO DAILY for 30 Days, #30 PKT Prov:IBIS CROWE MD 01/16/17 Reported Medications Obeticholic Acid (Ocaliva) 5 Mg Tablet, 5 MG PO, TAB 01/14/17 Montelukast Sodium* (Montelukast Sodium*) 10 Mg Tablet, 10 MG PO QHS, #30 TAB 10/13/15 Propranolol Hcl* (Propranolol Hcl*) 20 Mg Tablet, 20 MG PO DAILY, TAB 10/13/15 Spironolactone* (Aldactone*) 25 Mg Tablet, 25 MG PO DAILY, #30 TAB 10/13/15 Ursodiol* (Ursodiol*) 300 Mg Capsule, 300 MG PO QPM, CAP 10/13/15 Omeprazole* (Omeprazole*) 40 Mg Capsule.dr, 40 MG PO DAILY, #30 CAP 10/13/15 Discontinued Reported Medications [Allergy Med] No Conflict Check, PRN 03/19/14 [Liver Cirrohsis Med] No Conflict Check 03/19/14 Follow-up Plan PCP within 7 days dermatology sales representative within 7 days Repeat EGD in 6mos Primary Care Provider Tania Lentz Time spent on discharge: > 30 minutes Pending Labs Laboratory Tests Test 01/16/17 05:28 01/16/17 05:48 White Blood Count 1.910^3/ul (4.8-10.8) Red Blood Count 3.2010^6/ul (4.20-5.40) Hemoglobin 7.9g/dl (12.0-16.0) Hematocrit 25.1% (37.0-47.0) Mean Corpuscular Volume 78.4fl (82.0-101.0) Mean Corpuscular Hemoglobin 24.7pg (29.0-33.0) Mean Corpuscular Hemoglobin Concent 31.5g/dl (32.0-37.0) Red Cell Distribution Width 27.3% (11.5-14.5) Platelet Count 4810^3/UL (140-415) Mean Platelet Volume 9.8fl (7.4-10.4) Neutrophils % 52.3% (39.0-77.0) Lymphocytes % 33.7% (15.0-51.0) Monocytes % 10.4% (0.0-11.0) Eosinophils % 3.1% (0.0-7.0) Basophils % 0.5% (0.0-2.0) Nucleated Red Blood Cells % 0.0/100WBC (0.0-0.0) Neutrophils # 1.010^3/ul (1.6-7.5) Lymphocytes # 0.710^3/ul (0.8-2.9) Monocytes # 0.210^3/ul (0.3-0.9) Eosinophils # 0.110^3/ul (0.0-0.5) Basophils # 0.010^3/ul (0.0-0.1) Nucleated Red Blood Cells # 0.010^3/ul (0.0-0.0) Lab Scanned Report BLOOD [id number] IBIS CROWE MD Jan 16, 2017 14:10
== END 2017-01-16 15:45 | disposition home or self-care (01) | DRG 394 ==
LOC: E/R 22:38 → MS2 01-14 02:37
PROVIDERS: ADMIT Family Medicine; ATTEND Family Medicine
PROC: 6A550Z2 Pheresis of Platelets, Single (ICD-10-PCS; 2017-01-14)
PROC: 0DJD8ZZ Inspection of Lower Intestinal Tract, Via Natural or Artificial Opening Endoscopic (ICD-10-PCS; principal; 2017-01-15 08:00)
PROC: 0DB68ZX Excision of Stomach, Via Natural or Artificial Opening Endoscopic, Diagnostic (ICD-10-PCS; 2017-01-15 08:00)
DX: K64.8 Other hemorrhoids (principal); D61.818 Other pancytopenia; D69.6 Thrombocytopenia, unspecified; K74.60 Unspecified cirrhosis of liver; D64.9 Anemia, unspecified; D50.9 Iron deficiency anemia, unspecified; K64.4 Residual hemorrhoidal skin tags; Z90.49 Acquired absence of other specified parts of digestive tract
CPT/HCPCS: 36415; 36430; 76705; 80048; 80053; 81003; 82140; 82270; 82728; 83540; 84466; 85014; 85018; 85025; 85610; 85730; 86644; 86850; 86900; 86901; 88305; 88312; 93005; C9113; J1940; J2250; J2270; J3010; P9035

== ENCOUNTER 2017-01-21 14:17 | Outpatient (CLI) | payer OTHER ==
[~2017-01-21] VITALS: Ht 160 cm; Wt 65.5 kg
[~2017-01-21 14:17] MED LIST changes: -ALLERGY MED; +DOCU240C14 PO; +METAM PO; +OBET5TAB PO; -[UNRECOGNIZED DRUG - REMARK]
[2017-01-21 14:33] VITALS: BP 102/58; PULSE 66; RESP 18; Ht 160 cm; Wt 65.5 kg
--- NOTE | 2017-01-21 15:43 | PN ---
Date/Time of Note Date/Time of Note DATE: 01/21/17 TIME: 15:40 Outpatient Progress Note Chief Complaint Rectal bleeding/cirrhosis/thrombus cytopenia/anemia HPI Rectal bleeding/patient was recently hospitalized with rectal bleeding, hematemesis melena, no constipation, patient doing better, Cirrhosis/patient has cirrhosis of liver, patient cirrhosis cause unknown at present, per patient no nausea vomiting, no abdominal distention, From a cytopenia/patient has no cytopenia, no bruises ecchymosis, no vaginal bleeding, Anemia/patient has anemia, no weakness tiredness, fatigue, ecchymoses bruises or bleeding, Review of Systems Const: No Fever, no chills, no Wt. loss, no Fatigue, normal appetite, no diaphoresis. Eyes: No pain, no discharge, no redness, no visual change, no foreign body. ENT: No pain, no bleeding, no congestion, no sore throat, no dysphagia, no discharge or rhinitis. Lymph: No adenopathy, no tender nodes, no lymphedema. Resp: No SOB, no cough, no sputum, no wheezing, no chest pain. CV: No chest pain, no palpitaions, no BLOOD, no PND, no edema. GI: Normal appetite, no pain, no nausea, no vomiting, no diarrhea, no blood, no constipation. : No frequency, no urgency, no dysuria, no hematuria, no flank pain, no discharge, no bleeding no rectal bleeding, no vaginal bleeding,. Musc: No bone/joint pain, no back pain, no neck pain, no knee pain, no restricted ROM. Skin: No rash, no skin lesions, no erythema, no laceration, no bruising, no pruritus. Neuro: No KLEIN, no dizziness, no syncope, no seizure, no focal-weakness. Endo: No polyuria, no polydypsia, no dry-skin, no temp-intolerance. Psych: No hallucinations, no depression, no anxiety, no suicidal ideation. Ext: No edema, no pain, no ulcer, no weakness. Physical Exam Vital Signs Date Time Temp Pulse Resp B/P Pulse Ox O2 Delivery O2 Flow Rate FiO2 01/21/17 14:33 98.1 66 18 102/58 99 Room Air General Appearance: A 36 year-old female minimal abdominal who appears well- developed, well-nourished, in no acute distress. HEENT: Head normocephalic, atraumatic. Pupils equal, round, reactive to light and accommodate. Sclerae are no jaundice. Nasal turbinates pink without erythema or nasal discharge. Mucous membranes pink and moist without lesions. Oropharynx clear without any exudate or discharge. NECK: Supple. Trachea midline, No thyromegaly, No cervical lymphadenopathy, No mass, No carotid bruits, No JVD, Carotid pulses 2+ bilaterally. PULMONARY: Clear to auscultaion bilaterally, No retractions, Chest expansion symmetric bilaterally, no rales, no ronchi, no dulness on percussion. CARDIAC: Normal SI and S2, Regular rate and rythm, no murmur, gallop, or rub. GASTROINTESTINAL: Abdomen is soft, non-tender, Non Rigid, minimal abdominal distention, Positive bowel sounds x4 quadrants, Liver normal. SKIN: Warm, dry, no rash, no bruise, no echmosis. No laceration, no pruritus, EXTREMITIES: Bilateral lower extremities normal, no edema, no phlabitus, pulse palpable, no contracture. MUSCULOSKELETAL: Spine Normal, Non-tender, Normal range of motion, No swelling, no deformity, no clubbing, or cyanosis, the patient has no edema to bilateral lower extremities, dorsalis pedis pulses palpable bilaterally. NEUROLOGIC: The patient is awake, alert, oriented, responding to yes/no questions appropriately, moving all extremities, cranial nerve intact, normal strenght, normal power, normal coordination, normal gait. Allergies Coded Allergies: No Known Drug Allergies (Unverified Allergy, Unknown, 01/14/17) PMH Rectal bleeding/cirrhosis/trauma cytopenia/anemia Social Hx No smoking, no drinking, no drugs, Family Hx Noncontributory Patient History: Cirrhosis of liver G8 SIBLING FH: cirrhosis Assessment/Plan Impression Rectal bleeding/cirrhosis/thrombus cytopenia/anemia Plan Patient is feeling better, patient education done about to cirrhosis, Patient advised to follow with her primary care physician, Patient may need CBC CMP on her next visit, discussed with the patient, If patient has any confusion to let us know, monitor closely, fall precaution Patient has all the medication, no need for refill,, Medications Home Meds Active Scripts Docusate Calcium* (Docusate Calcium*) 240 Mg Capsule, 240 MG PO DAILY for 30 Days, #30 CAP Prov:STOLAR,IBIS MD 01/16/17 Psyllium* (Metamucil*) 1 Pkt Susp, 1 PKT PO DAILY for 30 Days, #30 PKT Prov:IBIS CROWE MD 01/16/17 Reported Medications Obeticholic Acid (Ocaliva) 5 Mg Tablet, 5 MG PO, TAB 01/14/17 Montelukast Sodium* (Montelukast Sodium*) 10 Mg Tablet, 10 MG PO QHS, #30 TAB 10/13/15 Propranolol Hcl* (Propranolol Hcl*) 20 Mg Tablet, 20 MG PO DAILY, TAB 10/13/15 Spironolactone* (Aldactone*) 25 Mg Tablet, 25 MG PO DAILY, #30 TAB 10/13/15 Ursodiol* (Ursodiol*) 300 Mg Capsule, 300 MG PO QPM, CAP 10/13/15 Omeprazole* (Omeprazole*) 40 Mg Capsule.dr, 40 MG PO DAILY, #30 CAP 10/13/15 Discontinued Reported Medications [Allergy Med] No Conflict Check, PRN 03/19/14 [Liver Cirrohsis Med] No Conflict Check 03/19/14 RHIANNA BELL MD Jan 21, 2017 15:43
== END 2017-01-21 16:46 | disposition home or self-care (01) ==
LOC: DCC 14:17
PROVIDERS: ATTEND Internal Medicine
DX: K62.5 Hemorrhage of anus and rectum (principal); K74.60 Unspecified cirrhosis of liver; D69.6 Thrombocytopenia, unspecified; D64.9 Anemia, unspecified

== ENCOUNTER 2017-02-01 13:42 | Emergency (ER) | payer OTHER ==
[~2017-02-01] VITALS: Ht 160 cm; Wt 67.0 kg
[2017-02-01 13:52] VITALS: Ht 160 cm; Wt 67.0 kg
--- NOTE | 2017-02-01 14:43 | RADRPT ---
PROCEDURE: XR Chest 1 View. CLINICAL INDICATION: Shortness of breath, upper GI bleed. TECHNIQUE: AP view of the chest was obtained. COMPARISON: None. FINDINGS: The cardiomediastinal silhouette is within normal limits. Minimal atelectasis is seen at the lung ba ses. No consolidations are identified. No pneumothorax is seen. Osseous structures are intact. IMPRESSION: Minimal atelectasis at the lung bases. RPTAT: AA .Linden Marino MD, MD Date Time Electronically viewed and signed by .Linden Marino MD, on 02/01/2017 14:43 .P/
[2017-02-01 14:54] LABS: ADD SCAN DIFF NO
[2017-02-01 15:05] LABS: ABNORMAL IP MESSAGE 1; BASOPHILS % 0.2 % (0.0-2.0); EOSINOPHILS # 0.1 10^3/ul (0.0-0.5); EOSINOPHILS % 1.5 % (0.0-7.0); HEMATOCRIT 27.7 % (37.0-47.0); HEMOGLOBIN 8.2 g/dl (12.0-16.0); LYMPHOCYTES # 0.9 10^3/ul (0.8-2.9); LYMPHOCYTES % 14.8 % (15.0-51.0); MEAN CORPUSCULAR HEMOGLOBIN 24.8 pg (29.0-33.0); MEAN CORPUSCULAR HGB CONC 29.6 g/dl (32.0-37.0); MEAN CORPUSCULAR VOLUME 83.7 fl (82.0-101.0); MEAN PLATELET VOLUME 10.2 fl (7.4-10.4); MONOCYTE # 0.7 10^3/ul (0.3-0.9); MONOCYTES % 10.7 % (0.0-11.0); NEUTROPHIL # 4.4 10^3/ul (1.6-7.5); NEUTROPHILS % 72.5 % (39.0-77.0); PLATELET COUNT 46 10^3/UL (140-415); RED BLOOD COUNT 3.31 10^6/ul (4.20-5.40); RED CELL DISTRIBUTION WIDTH 25.2 % (11.5-14.5); WHITE BLOOD COUNT 6.1 10^3/ul (4.8-10.8)
[2017-02-01 15:14] LABS: ADD UMIC YES; INR 1.44; PARTIAL THROMBOPLASTIN TIME 28.7 Sec (25.0-35.0); PROTIME 17.6 Sec (12.2-14.2); PT RATIO 1.4; UR ASCORBIC ACID NEGATIVE (NEGATIVE); UR BILIRUBIN (Dip) 2+ mg/dL (NEGATIVE); UR BLOOD (Dip) 2+ mg/dL (NEGATIVE); UR CLARITY SLIGHTLY CLOUDY (CLEAR); UR COLOR AMBER (YELLOW); UR GLUCOSE (Dip) NEGATIVE (NEGATIVE); UR KETONES (Dip) NEGATIVE (NEGATIVE); UR LEUKOCYTE ESTERASE (Dip) NEGATIVE Leu/ul (NEGATIVE); UR MUCUS FEW /HPF (NONE SEEN); UR NITRITE (Dip) NEGATIVE (NEGATIVE); UR RBC 27 /HPF (0-5); UR SPECIFIC GRAVITY (Dip) 1.026 (1.003-1.030); UR SQUAMOUS EPITHELIAL CELL MODERATE /HPF (FEW); UR TOTAL PROTEIN (Dip) 1+ mg/dl (NEGATIVE); UR UROBILINOGEN (Dip) 2+ mg/dL (NEGATIVE)
[2017-02-01 15:22] LABS: ALANINE AMINOTRANSFERASE 65 IU/L (13-69); ALBUMIN 2.3 g/dl (3.3-4.9); ALBUMIN/GLOBULIN RATIO 0.74; ALKALINE PHOSPHATASE 348 IU/L (42-121); ANION GAP 14 (8-16); ASPARTATE AMINO TRANSFERASE 128 IU/L (15-46); BILIRUBIN,INDIRECT 1.5 mg/dl (0-1.1); BILIRUBIN,TOTAL 2.8 mg/dl (0.2-1.3); BLOOD UREA NITROGEN 8 mg/dl (7-20); CALCIUM 7.9 mg/dl (8.4-10.2); CARBON DIOXIDE 24 mmol/L (21-31); CHLORIDE 105 mmol/L (97-110); CREATININE 0.61 mg/dl (0.44-1.00); GLUCOSE 122 mg/dl (70-220); POTASSIUM 4.1 mmol/L (3.5-5.1); SODIUM 139 mmol/L (135-144); TOTAL PROTEIN 5.4 g/dl (6.1-8.1)
[2017-02-01 15:31] VITALS: BP 97/67; PULSE 78; RESP 18
[2017-02-01 15:55] LABS: TROPONIN-I < 0.012 ng/ml (0.00-0.12)
--- NOTE | 2017-02-01 17:41 | ERD ---
ER Documentation Chief Complaint Date/Time DATE: 02/01/17 TIME: 17:33 Chief Complaint BRIGHT RED RECTAL BLEEDING X3 DAYS W/FEVER, SENT BY PCP HPI 37-year-old female with a history of cirrhosis of unknown etiology presenting with complaints of fever last night and rectal bleeding for 3 days. The bleeding happens with bowel movements. It is intermittent. It resolves after going to the bathroom. She had this a few weeks ago and was here for the same reason. She was admitted and had a colonoscopy and endoscopy. She denies any associated dizziness or chest pain at this time. No nausea or vomiting. She spoke with her aircraft metalsmith, Dr. Malik, who recommended she come to the ER for evaluation. She has also noticed that her abdominal distention is slightly worse. She complains of abdominal pressure and occasional sharp pains in her right upper quadrant and in her periumbilical area. No associated dysuria. ROS All systems reviewed and are negative except as per history of present illness. Medications Home Meds Active Scripts Docusate Calcium* (Docusate Calcium*) 240 Mg Capsule, 240 MG PO DAILY for 30 Days, #30 CAP Prov:IBIS CROWE MD 01/16/17 Psyllium* (Metamucil*) 1 Pkt Susp, 1 PKT PO DAILY for 30 Days, #30 PKT Prov:IBIS CROWE MD 01/16/17 Reported Medications Obeticholic Acid (Ocaliva) 5 Mg Tablet, 5 MG PO, TAB 01/14/17 Montelukast Sodium* (Montelukast Sodium*) 10 Mg Tablet, 10 MG PO QHS, #30 TAB 10/13/15 Propranolol Hcl* (Propranolol Hcl*) 20 Mg Tablet, 20 MG PO DAILY, TAB 10/13/15 Spironolactone* (Aldactone*) 25 Mg Tablet, 25 MG PO DAILY, #30 TAB 10/13/15 Ursodiol* (Ursodiol*) 300 Mg Capsule, 300 MG PO QPM, CAP 10/13/15 Omeprazole* (Omeprazole*) 40 Mg Capsule.dr, 40 MG PO DAILY, #30 CAP 10/13/15 Allergies Allergies: Coded Allergies: No Known Drug Allergies (Unverified Allergy, Unknown, 02/01/17) PMhx/Soc History of Surgery: Yes ( x2, Cholecystectomy) Anesthesia Reaction: No Hx Neurological Disorder: No Hx Respiratory Disorders: No Hx Cardiac Disorders: Yes (HTN) Hx Psychiatric Problems: No Hx Miscellaneous Medical Probl: Yes (liver chirrosis, pre-eclampsia) Hx Alcohol Use: No Hx Substance Use: No Hx Tobacco Use: No Smoking Status: Never smoker FmHx Family History: No diabetes Physical Exam Vitals Vital Signs Date Time Temp Pulse Resp B/P Pulse Ox O2 Delivery O2 Flow Rate FiO2 02/01/17 15:31 78 18 97/67 98 Room Air 02/01/17 13:52 97.7 72 20 111/69 100 Physical Exam Const: Well-appearing, no apparent distress Head: Atraumatic Eyes: Scleral icterus ENT: Normal External Ears, Nose and Mouth. Neck: Full range of motion. No JVD. no meningismus. Resp: Clear to auscultation bilaterally Cardio: Regular rate and rhythm, no murmurs Abd: Soft, non tender, moderately distended with ascites. No guarding. No peritoneal signs. No masses. No hernias. No hepatosplenomegaly. Normal bowel sounds Skin: No petechiae or rashes Back: No midline or flank tenderness Ext: No cyanosis, or edema Neur: Awake and alert Psych: Normal Mood and Affect Result Diagram: 02/01/17 1450 02/01/17 1450 Results 24 hrs Laboratory Tests Test 02/01/17 14:50 White Blood Count 6.110^3/ul Red Blood Count 3.3110^6/ul Hemoglobin 8.2g/dl Hematocrit 27.7% Mean Corpuscular Volume 83.7fl Mean Corpuscular Hemoglobin 24.8pg Mean Corpuscular Hemoglobin Concent 29.6g/dl Red Cell Distribution Width 25.2% Platelet Count 4610^3/UL Mean Platelet Volume 10.2fl Neutrophils % 72.5% Lymphocytes % 14.8% Monocytes % 10.7% Eosinophils % 1.5% Basophils % 0.2% Nucleated Red Blood Cells % 0.0/100WBC Neutrophils # 4.410^3/ul Lymphocytes # 0.910^3/ul Monocytes # 0.710^3/ul Eosinophils # 0.110^3/ul Basophils # 0.010^3/ul Nucleated Red Blood Cells # 0.010^3/ul Prothrombin Time 17.6Sec Prothrombin Time Ratio 1.4 INR International Normalized Ratio 1.44 Activated Partial Thromboplast Time 28.7Sec Urine Color DANTE Urine Clarity SLIGHTLY CLOUDY Urine pH 6.0 Urine Specific [place] 1.026 Urine Ketones NEGATIVEmg/dL Urine Nitrite NEGATIVEmg/dL Urine Bilirubin 2+mg/dL Urine Urobilinogen 2+mg/dL Urine Leukocyte Esterase NEGATIVELeu/ul Urine Microscopic RBC 27/HPF Urine Microscopic WBC 4/HPF Urine Squamous Epithelial Cells MODERATE/HPF Urine Mucus FEW/HPF Urine Hemoglobin 2+mg/dL Urine Glucose NEGATIVEmg/dL Urine Total Protein 1+mg/dl Sodium Level 139mmol/L Potassium Level 4.1mmol/L Chloride Level 105mmol/L Carbon Dioxide Level 24mmol/L Anion Gap 14 Blood Urea Nitrogen 8mg/dl Creatinine 0.61mg/dl Glucose Level 122mg/dl Calcium Level 7.9mg/dl Total Bilirubin 2.8mg/dl Direct Bilirubin 1.30mg/dl Indirect Bilirubin 1.5mg/dl Aspartate Amino Transf (AST/SGOT) 128IU/L Alanine Aminotransferase (ALT/SGPT) 65IU/L Alkaline Phosphatase 348IU/L Troponin I < 0.012ng/ml Total Protein 5.4g/dl Albumin 2.3g/dl Globulin 3.10g/dl Albumin/Globulin Ratio 0.74 Procedures/MDM Labs: CBC: Hemoglobin lower than normal but stable compared to previous labs, no leukocytosis, no bandemia CMP: There is evidence of her chronic liver failure, with labs only slightly worse than her last blood work done in December 2016 Troponin within normal limits UA: no evidence of infection Chest x-ray shows atelectasis but no acute infiltrates, mediastinum normal MDM: Patient is presenting with intermittent rectal bleeding for 3 days and a fever that was noted last night that has since resolved. Here her vitals are completely stable and she is afebrile. Her exam is unrevealing. She does have evidence of cirrhosis on exam, however I have a low suspicion for acute surgical abdomen or spontaneous bacterial peritonitis. There is no evidence of pneumonia or UTI on her workup. Patient has rectal bleeding likely secondary to the internal hemorrhoids and external hemorrhoids that were seen on her colonoscopy done last month. However she has no active rectal bleeding at this time. Her hemoglobin is stable. I do not see a reason for admission at this time. I spoke with Dr. Malik, her aircraft metalsmith, who agrees if the patient has no abdominal tenderness or fever, she may go home with follow-up with him. Patient feels comfortable with the plan. She was advised to return for recurrent fever, worsening abdominal pain, or rectal bleeding that does not resolve. Departure Diagnosis: Primary Impression: Rectal bleeding Additional Impressions: History of hemorrhoids Ascites Ascites type: other type Qualified Code: R18.8 - Other ascites Condition: Stable Patient Instructions: Hemorrhoids, Rectal Bleed, Stable Additional Instructions: Call your doctor tomorrow for a follow-up appointment. Return to the ER if you have rectal bleeding that is not stopping or you develop a fever again. LOUIE MERCEDES MD Feb 01, 2017 17:40
== END 2017-02-01 16:51 | disposition home or self-care (01) ==
LOC: E/R 13:42
DX: K62.5 Hemorrhage of anus and rectum (principal); R18.8 Other ascites; I10 Essential (primary) hypertension; Z87.19 Personal history of other diseases of the digestive system
CPT/HCPCS: 36415; 71010; 80053; 81001; 84484; 85025; 85610; 85730; 86850; 86900; 86901; Z7502

== ENCOUNTER 2017-02-07 16:05 | Outpatient (CLI) | payer OTHER ==
[~2017-02-07] VITALS: Ht 160 cm; Wt 70.0 kg
[2017-02-07 16:11] VITALS: Ht 160 cm; Wt 70.0 kg
[2017-02-07 16:12] VITALS: BP 109/55; PULSE 72; RESP 16
--- NOTE | 2017-02-07 16:21 | PN ---
Date/Time of Note Date/Time of Note DATE: 02/07/17 TIME: 16:16 Outpatient Progress Note Chief Complaint Cirrhosis of liver/thrombocytopenia/anemia HPI Cirrhosis of liver/patient has cirrhosis of liver, patient has ascites, patient has bilateral ankle edema, no jaundice, patient feel weakness and tiredness, Thrombocytopenia enia/patient is from a cytopenia, patient had rectal bleeding, patient was seen in emergency room, Anemia/no hematemesis or melena, patient did have bright red rectal bleeding, patient was seen in emergency room, Review of Systems Const: No Fever, no chills, no Wt. loss, no Fatigue, normal appetite, no diaphoresis. Eyes: No pain, no discharge, no redness, no visual change, no foreign body. ENT: No pain, no bleeding, no congestion, no sore throat, no dysphagia, no discharge or rhinitis. Lymph: No adenopathy, no tender nodes, no lymphedema. Resp: No SOB, no cough, no sputum, no wheezing, no chest pain. CV: No chest pain, no palpitaions, no BLOOD, no PND, no edema. GI: Normal appetite, no pain, no nausea, no vomiting, no diarrhea, no blood, no constipation. Patient has abdominal distention, and has ascites, slight discomfort, : No frequency, no urgency, no dysuria, no hematuria, no flank pain, no discharge, no bleeding. Musc: No back pain, no neck pain, no knee pain, no restricted ROM. Skin: No rash, no skin lesions, no erythema, no laceration, no bruising, no pruritus. Neuro: No KLEIN, no dizziness, no syncope, no seizure, no focal-weakness. Endo: No polyuria, no polydypsia, no dry-skin, no temp-intolerance. Psych: No hallucinations, no depression, no anxiety, no suicidal ideation. Ext: No bilateral ankle edema, no pain, no ulcer, no weakness. Physical Exam Vital Signs Date Time Temp Pulse Resp B/P Pulse Ox O2 Delivery O2 Flow Rate FiO2 02/07/17 16:12 97.8 72 16 109/55 98 Room Air General Appearance: A 37 year-old female who appears well-developed, well- nourished, in no acute distress. HEENT: Head normocephalic, atraumatic. Pupils equal, round, reactive to light and accommodate. Sclerae are no jaundice. Nasal turbinates pink without erythema or nasal discharge. Mucous membranes pink and moist without lesions. Oropharynx clear without any exudate or discharge. NECK: Supple. Trachea midline, No thyromegaly, No cervical lymphadenopathy, No mass, No carotid bruits, No JVD, Carotid pulses 2+ bilaterally. PULMONARY: Clear to auscultaion bilaterally, No retractions, Chest expansion symmetric bilaterally, no rales, no ronchi, no dulness on percussion. CARDIAC: Normal SI and S2, Regular rate and rythm, no murmur, gallop, or rub. GASTROINTESTINAL: Abdomen is soft, mild generalized-tender, patient has ascites , Non Rigid, No distention, Positive bowel sounds x4 quadrants, Liver normal. SKIN: Warm, dry, no rash, no bruise, no echmosis. EXTREMITIES: Bilateral lower extremities bilateral ankle edema, no phlabitus, pulse palpable, no contracture. MUSCULOSKELETAL: Spine Normal, Non-tender, Normal range of motion, No swelling, no deformity, no clubbing, or cyanosis, the patient has bilateral ankle edema t , dorsalis pedis pulses palpable bilaterally. NEUROLOGIC: The patient is awake, alert, oriented, responding to yes/no questions appropriately, moving all extremities, cranial nerve intact, normal strenght, normal power, normal coordination, normal gait. Allergies Coded Allergies: No Known Drug Allergies (Unverified Allergy, Unknown, 02/01/17) PMH No change Social Hx No change Family Hx No change Patient History: Cirrhosis of liver G8 SIBLING FH: cirrhosis Assessment/Plan Impression Cirrhosis of liver Trauma cytopenia Anemia Plan Patient has multiple medical problem, patient very high risk for repeated admission, patient also advised to get daily weight, if they weight significantly increased contact the primary care physician, Patient also has bilateral ankle edema, and also has ascites, patient need to carry the weight loss, Because of bilateral ankle edema and ascites patient only taking Aldactone, I will add Lasix 40 mg p.o. daily, Lasix 40 mg daily #30 Patient periodically may need to check potassium level, Patient continued to take other medication, Patient advised to follow with the primary care physician on regular basis, may need to check serum ammonia if patient confused discussed with the patient, Medications Home Meds Reported Medications Obeticholic Acid (Ocaliva) 5 Mg Tablet, 5 MG PO, TAB 01/14/17 Montelukast Sodium* (Montelukast Sodium*) 10 Mg Tablet, 10 MG PO QHS, #30 TAB 10/13/15 Propranolol Hcl* (Propranolol Hcl*) 20 Mg Tablet, 20 MG PO DAILY, TAB 10/13/15 Spironolactone* (Aldactone*) 25 Mg Tablet, 25 MG PO DAILY, #30 TAB 10/13/15 Ursodiol* (Ursodiol*) 300 Mg Capsule, 300 MG PO QPM, CAP 10/13/15 Omeprazole* (Omeprazole*) 40 Mg Capsule.dr, 40 MG PO DAILY, #30 CAP 10/13/15 Discontinued Scripts Docusate Calcium* (Docusate Calcium*) 240 Mg Capsule, 240 MG PO DAILY for 30 Days, #30 CAP Prov:IBIS CROWE MD 01/16/17 Psyllium* (Metamucil*) 1 Pkt Susp, 1 PKT PO DAILY for 30 Days, #30 PKT Prov:IBIS CROWE MD 01/16/17 RHIANNA BELL MD Feb 07, 2017 16:21
== END 2017-02-07 17:00 | disposition home or self-care (01) ==
LOC: DCC 16:05
PROVIDERS: ATTEND Internal Medicine
DX: K74.60 Unspecified cirrhosis of liver (principal); D69.6 Thrombocytopenia, unspecified; D64.9 Anemia, unspecified

== ENCOUNTER 2017-02-10 04:51 | Inpatient (IN) | payer OTHER ==
[~2017-02-10] VITALS: Ht 160 cm; Wt 70.0 kg
[2017-02-10] MEDS: URSODIOL 300 MG CAP PO SCH (03:00)
[~2017-02-10 04:51] MED LIST changes: -DOCU240C14 PO; -METAM PO
[2017-02-10 04:59] VITALS: Ht 160 cm; Wt 70.0 kg
[2017-02-10 05:28] LABS: URINE BLOOD (Dip) POC 2+ (NEGATIVE)
[2017-02-10] MEDS ORDERED: ONDANSETRON 4 MG INJ IV STA ×3 (05:49→06:25)
[2017-02-10 05:58] LABS: ADD SCAN DIFF NO
[2017-02-10 06:20] LABS: ALBUMIN 2.3 g/dl (3.3-4.9); ALBUMIN/GLOBULIN RATIO 0.74; BILIRUBIN,DIRECT 1.1 mg/dl (0.00-0.20); BILIRUBIN,INDIRECT 0.9 mg/dl (0-1.1); CALCIUM 7.4 mg/dl (8.4-10.2); CREATININE 0.64 mg/dl (0.44-1.00); POTASSIUM 3.4 mmol/L (3.5-5.1); TOTAL PROTEIN 5.4 g/dl (6.1-8.1)
[2017-02-10] MEDS ORDERED: morphine 4 MG/ML VIAL IV STA ×2 (06:23→06:25)
[2017-02-10 06:27] LABS: ABNORMAL IP MESSAGE 1; BASOPHILS % 0.3 % (0.0-2.0); EOSINOPHILS # 0.1 10^3/ul (0.0-0.5); HEMATOCRIT 26.5 % (37.0-47.0); HEMOGLOBIN 7.9 g/dl (12.0-16.0); LYMPHOCYTES # 1.2 10^3/ul (0.8-2.9); LYMPHOCYTES % 32.4 % (15.0-51.0); MEAN CORPUSCULAR HEMOGLOBIN 24.8 pg (29.0-33.0); MEAN CORPUSCULAR HGB CONC 29.8 g/dl (32.0-37.0); MEAN CORPUSCULAR VOLUME 83.3 fl (82.0-101.0); MEAN PLATELET VOLUME 9.6 fl (7.4-10.4); MONOCYTE # 0.3 10^3/ul (0.3-0.9); MONOCYTES % 8.4 % (0.0-11.0); NEUTROPHILS % 55.6 % (39.0-77.0); RED BLOOD COUNT 3.18 10^6/ul (4.20-5.40); RED CELL DISTRIBUTION WIDTH 22.6 % (11.5-14.5); WHITE BLOOD COUNT 3.7 10^3/ul (4.8-10.8)
[2017-02-10 06:34] LABS: INR 1.45; PROTIME 17.7 Sec (12.2-14.2); PT RATIO 1.4
[2017-02-10 06:35] LABS: PARTIAL THROMBOPLASTIN TIME 28.1 Sec (25.0-35.0)
[2017-02-10 06:43] LABS: PLATELET COUNT 57 10^3/UL (140-415)
[2017-02-10] MEDS ORDERED: SOD CHLORIDE 0.9% 250 ML IV ONE (06:48)
[2017-02-10] MEDS ORDERED: OBET5TAB PO (06:59)
[2017-02-10] MEDS ORDERED: FURO40TA4 PO (07:02)
[2017-02-10] MEDS ORDERED: ONDANSETRON 4 MG INJ IV PRN ×2 (08:00→11:00)
[2017-02-10] MEDS ORDERED: ACETAMINOPHEN 325 MG TAB PO PRN (08:00)
--- NOTE | 2017-02-10 08:19 | ERA ---
ER Documentation Chief Complaint Date/Time DATE: 02/10/17 TIME: 08:16 Chief Complaint C/O ABD DISTENTION & PAIN X 3 WKS. (+) LIVER CIRRHOSIS. HPI Patient is a 37-year-old female with cirrhosis who presents with a swollen abdomen. She has had swelling in her abdomen for the past 3 weeks. She had shortness of breath today as well and feels like "there is water pushing on my chest". She has never had a paracentesis performed. She says that over the past few weeks she has had blood from her rectum. She has had nausea but no vomiting. She has diffuse abdominal pain. She denies fevers. Upon review of old medical records this is the patient's fifth visit to the ER since 2012. Her primary doctor is Dr. Lentz. ROS All systems reviewed and are negative except as per history of present illness. Medications Home Meds Reported Medications Furosemide* (Furosemide*) 40 Mg Tablet, 40 MG PO DAILY, TAB 02/10/17 Obeticholic Acid (Ocaliva) 5 Mg Tablet, 5 MG PO DAILY, TAB 02/10/17 Montelukast Sodium* (Montelukast Sodium*) 10 Mg Tablet, 10 MG PO QHS, #30 TAB 10/13/15 Propranolol Hcl* (Propranolol Hcl*) 20 Mg Tablet, 20 MG PO DAILY, TAB 10/13/15 Spironolactone* (Aldactone*) 25 Mg Tablet, 25 MG PO DAILY, #30 TAB 10/13/15 Ursodiol* (Ursodiol*) 300 Mg Capsule, 300 MG PO QPM, CAP 10/13/15 Omeprazole* (Omeprazole*) 40 Mg Capsule.dr, 40 MG PO DAILY, #30 CAP 10/13/15 Discontinued Reported Medications Obeticholic Acid (Ocaliva) 5 Mg Tablet, 5 MG PO, TAB 01/14/17 Discontinued Scripts Docusate Calcium* (Docusate Calcium*) 240 Mg Capsule, 240 MG PO DAILY for 30 Days, #30 CAP Prov:IBIS CROWE MD 01/16/17 Psyllium* (Metamucil*) 1 Pkt Susp, 1 PKT PO DAILY for 30 Days, #30 PKT Prov:IBIS CROWE MD 01/16/17 Allergies Allergies: Coded Allergies: No Known Drug Allergies (Unverified Allergy, Unknown, 02/10/17) PMhx/Soc History of Surgery: Yes ( x2, Cholecystectomy) Anesthesia Reaction: No Hx Neurological Disorder: No Hx Respiratory Disorders: No Hx Cardiac Disorders: Yes (HTN) Hx Psychiatric Problems: No Hx Miscellaneous Medical Probl: Yes (liver chirrosis, pre-eclampsia) Hx Alcohol Use: No Hx Substance Use: No Hx Tobacco Use: No Smoking Status: Never smoker FmHx Family History: diabetes Physical Exam Vitals Vital Signs Date Time Temp Pulse Resp B/P Pulse Ox O2 Delivery O2 Flow Rate FiO2 02/10/17 07:34 98.0 64 18 102/66 100 Room Air 02/10/17 04:59 98.2 71 18 112/60 98 Physical Exam Const: No acute distress Head: Atraumatic Eyes: Normal Conjunctiva ENT: Normal External Ears, Nose and Mouth. Neck: Full range of motion..~ No meningismus. Resp: Clear to auscultation bilaterally Cardio: Regular rate and rhythm, no murmurs Abd: Distended abdomen with diffuse tenderness to palpation Skin: Pale skin Back: No midline or flank tenderness Ext: No cyanosis, or edema Neur: Awake and alert Psych: Normal Mood and Affect Result Diagram: 02/10/17 0520 02/10/17 0520 Results 24 hrs Laboratory Tests Test 02/10/17 05:20 02/10/17 05:34 White Blood Count 3.710^3/ul Red Blood Count 3.1810^6/ul Hemoglobin 7.9g/dl Hematocrit 26.5% Mean Corpuscular Volume 83.3fl Mean Corpuscular Hemoglobin 24.8pg Mean Corpuscular Hemoglobin Concent 29.8g/dl Red Cell Distribution Width 22.6% Platelet Count 5710^3/UL Mean Platelet Volume 9.6fl Neutrophils % 55.6% Lymphocytes % 32.4% Monocytes % 8.4% Eosinophils % 3.0% Basophils % 0.3% Nucleated Red Blood Cells % 0.0/100WBC Neutrophils # 2.010^3/ul Lymphocytes # 1.210^3/ul Monocytes # 0.310^3/ul Eosinophils # 0.110^3/ul Basophils # 0.010^3/ul Nucleated Red Blood Cells # 0.010^3/ul Prothrombin Time 17.7Sec Prothrombin Time Ratio 1.4 INR International Normalized Ratio 1.45 Activated Partial Thromboplast Time 28.1Sec Sodium Level 130mmol/L Potassium Level 3.4mmol/L Chloride Level 103mmol/L Carbon Dioxide Level 28mmol/L Anion Gap 2 Blood Urea Nitrogen 7mg/dl Creatinine 0.64mg/dl Glucose Level 83mg/dl Calcium Level 7.4mg/dl Total Bilirubin 2.0mg/dl Direct Bilirubin 1.10mg/dl Indirect Bilirubin 0.9mg/dl Aspartate Amino Transf (AST/SGOT) 112IU/L Alanine Aminotransferase (ALT/SGPT) 67IU/L Alkaline Phosphatase 404IU/L Total Protein 5.4g/dl Albumin 2.3g/dl Globulin 3.10g/dl Albumin/Globulin Ratio 0.74 Lipase 239U/L Bedside Urine pH (LAB) 6.5 Bedside Urine Protein (LAB) Negative Bedside Urine Glucose (UA) 0.1% Bedside Urine Ketones (LAB) Negative Bedside Urine Blood 2+ Bedside Urine Nitrite (LAB) Negative Bedside Urine Leukocyte Esterase (L Negative Current Medications Medications (Trade) Dose Ordered Sig/Maco Route PRN Reason Start Time Stop Time Status Last Admin Dose Admin Ondansetron HCl (Zofran Inj) 4 mg ONCE STAT IV 02/10/17 05:49 02/10/17 05:50 DC 02/10/17 06:36 Morphine Sulfate (morphine) 4 mg ONCE STAT IV 02/10/17 06:23 02/10/17 06:24 DC 02/10/17 06:36 Ondansetron HCl (Zofran Inj) 4 mg ONCE STAT IV 02/10/17 06:23 02/10/17 06:24 DC Morphine Sulfate (morphine) 4 mg ONCE STAT IV 02/10/17 06:25 02/10/17 06:26 DC Ondansetron HCl 4 mg 4 mg ONCE STAT IV 02/10/17 06:25 02/10/17 06:26 DC Sodium Chloride (NS) 250 ml @ 0 mls/hr Q0M ONCE IV 02/10/17 06:48 02/10/17 06:49 DC Ondansetron HCl (Zofran Inj) 4 mg BRIDGE ORDER PRN IV NAUSEA AND/OR VOMITING 02/10/17 08:00 02/11/17 07:59 Acetaminophen (Tylenol Tab) 650 mg ER BRIDGE PRN PO MILD PAIN/FEVER 02/10/17 08:00 02/11/17 07:59 Procedures/MDM Ultrasound paracentesis is pending at this time. Patient is a 37-year-old female who presents with abdominal swelling from ascites. She was also having a GI bleed and has a hemoglobin of 7.9. She will require transfusion of 2 units of packed red blood cells. She has no fever at this point I doubt spontaneous bacterial peritonitis. However I do believe that she needs admission to the hospital for further workup and possibly even endoscopy or colonoscopy. The patient will be admitted to the care of Dr. Kapadia from the panel team as she has been admitted to the panel team in the past. She will be admitted to a medical surgical bed. At this point there is no obvious sign of esophageal variceal bleeding. Critical Care: Time: 35 minutes excluding all billable procedures. Treatments/Evaluations: Close monitoring and treatment of unstable vital signs, cardiorespiratory, and neurologic status, while maintaining tight balance of fluid, respiratory, and cardiac interventions. Departure Diagnosis: Primary Impression: GI bleed Qualified Code: K92.2 - Gastrointestinal hemorrhage, unspecified gastrointestinal hemorrhage type Additional Impressions: Ascites Qualified Code: R18.8 - Other ascites Abdominal pain Qualified Code: R10.84 - Generalized abdominal pain Anemia Qualified Code: D64.9 - Anemia, unspecified type Condition: STEPHANIE Adames MD Feb 10, 2017 08:18
[2017-02-10] MEDS ORDERED: LIDOCAINE 1% (MPF) 5 ML VIAL ONE (09:09)
--- NOTE | 2017-02-10 09:49 | RADRPT ---
PROCEDURE: Ultrasound guided paracentesis. CLINICAL INDICATION: Ascites and shortness of breath. COMPARISON: No prior studies are available for comparison. TECHNIQUE: The risks, benefits, and alternatives were explained to the patient and/or the patient's family, inc luding but not limited to bleeding, infection, pain, visceral or vascular damage, shock, and . The patient and/or the patient's family understood the risks and the alternatives and wished to pro ceed with the procedure. Informed written consent was obtained. A procedural time out was performed . The patient's name, date of , and procedure to be performed were verified. Utilizing ultrasound guidance, optimal location for entry to the peritoneal cavity was ascertained. The overlying skin was prepped and draped in the usual sterile fashion. Approximately 10 ml of 1% Xylocaine was injected locally for pain control. Using ultrasound guidance, an 8 [place] catheter wa s introduced into the peritoneal cavity in the right lower quadrant without difficulty. FINDINGS: Initial images demonstrate ascites. Approximately 0.66 liters of serous fluid was aspirated and sen t for laboratory analysis. The patient tolerated the procedure well without complication. IMPRESSION: 1. Successful ultrasound-guided paracentesis. RPTAT: QQ .Preet Freeman MD, Date Time Electronically viewed and signed by .Preet Freeman MD, on 02/10/2017 09:49 .R/
[2017-02-10] MEDS ORDERED: NACL 0.9% 3 ML SYG IV SCH (11:00)
[2017-02-10] MEDS ORDERED: morphine 2 MG INJ IV PRN (11:00)
[2017-02-10] MEDS ORDERED: HYDROCODONE/APAP (5/325) TAB PO PRN (11:00)
--- NOTE | 2017-02-10 11:23 | HP ---
Date/Time of Note Date/Time of Note DATE: 02/10/17 TIME: 11:20 Assessment/Plan VTE Prophylaxis VTE Prophylaxis Intervention: SCD's Lines/Catheters IV Catheter Type (from [facility] Saline Lock Assessment/Plan Chief Complaint/Hosp Course 1. Melena. Etiology unclear. Could be secondary to underlying bleeding hemorrhoids versus diverticulitis versus others. Will involve gastroenterology on the case. The patient will be started on proton pump inhibitors. 2. Anemia. Most probably anemia secondary to acute blood loss. The patient will be transfused with blood products as needed. The patient will be continued on proton pump inhibitors. Gastroenterology consult has been obtained. 3. Liver cirrhosis with portal hypertension. The patient follows up with outpatient hepatology. The patient will be continued on diuretics and propranolol. Will obtain a serum ammonia level. The patient has no evidence of any hepatic encephalopathy. 4. Ascites. Status post paracentesis with drainage of 0.66 L of fluid. Pending fluid studies. The patient will be continued on diuretics. 5. Pancytopenia. Most probably secondary to underlying liver cirrhosis. Monitor. Transfuse blood products as needed. Plan: The patient will be admitted to inpatient medical surgical floor. The patient will be started on a clear liquid diet. The patient will be started on DVT prophylaxis and gastrointestinal prophylaxis. The patient will remain a full code. Activities will be as tolerated. The rest of the patient's management will be based on the clinical course and the results of diagnostic studies. Based on the patient's clinical presentation, she most probably requires at least 1 midnight's stay for further management and evaluation of her clinical presentation. The case and management of this patient was fully discussed with Dr. Kapadia. Problems: HPI/ROS Admit Date/Time Admit Date/Time Hx of Present Illness Reason for admission: Hematochezia, abdominal distention. Consultants 1. Lucas Manzano MD, Gastroenterology. This is a 37-year-old female with past medical history of liver cirrhosis of unclear etiology, portal hypertension, and anemia who came to the emergency room with a chief complaint of multiple episodes of hematochezia. The patient visited the discharge clinic on 02/07/2017 with complaints of abdominal distention as well as bilateral lower extremity edema when she was discharged home on Lasix in addition to her routine medications. The patient also verbalized an episode of fever and chills a week ago. The patient was also complaining of some dyspnea secondary to abdominal distention. The patient denied any diarrhea or dysuria. In the emergency room, the patient was noticed to have pancytopenia. The patient's hemoglobin was 7.9. She had some hyponatremia and hypokalemia. Patient's INR was 1.45. The patient underwent an ultrasound-guided paracentesis by interventional radiology with the drainage of 0.66 L of serous fluid. ROS Constitutional: no complaints Eyes: no complaints ENT: no complaints Respiratory: shortness of breath Cardiovascular: no complaints Gastrointestinal: blood, decreased appetite, other (Distention) Genitourinary: other (Dark-colored urine) Musculoskeletal: no complaints Skin: pruritis Neurologic: no complaints Endocrine: no complaints Lymphatic: no complaints Psychological: no complaints Immunologic: no complaints PMH/Family/Social Past Medical History Medical History: other (Liver cirrhosis, thrombocytopenia, anemia) Past Surgical History Past Surgical Hx: cholecystectomy, other ( 2) Social History The patient lives at home with her 10-year-old daughter. Alcohol Use: none Smoking Status: Never smoker Drug Use: none Exam/Review of Systems Vital Signs Vitals Vital Signs Date Time Temp Pulse Resp B/P Pulse Ox O2 Delivery O2 Flow Rate FiO2 02/10/17 10:00 98.4 62 108/61 02/10/17 09:40 18 99 02/10/17 07:34 Room Air Exam Exam General: Pale looking 37 year-old male lying in bed in no apparent distress. HEENT: Normocephalic, atraumatic. Eyes: Icteric sclerae, conjunctivae clear. ENT : Nasal septum midline, oral mucosa moist. Neck supple, no JVD noticed. Respiratory: Bilaterally clear breath sounds. No use of accessory muscles of respiration. No adventitious breath sounds. Cardiovascular: S1, S2 heard. Regular rate and rhythm. Abdomen: Soft, distended. Bowel sounds positive in all 4 quadrants. Genitourinary: Deferred. Extremities: No cyanosis, no clubbing. Left lower extremity 1-2+ pitting edema. Neurologic: Cranial nerves II through XII grossly intact. The patient is awake, alert, and oriented. Skin: Normal skin turgor. No skin rashes. Labs Result Diagram: 02/10/1751902/10/17519 Medications Medications Current Medications Ondansetron HCl (Zofran Inj) 4 mg Q6H PRN IV NAUSEA AND/OR VOMITING; Start at 11:00 Acetaminophen/ Hydrocodone Bitart ([place] (5/325)) 1 tab Q6H PRN PO MODERATE PAIN LEVEL 4-6; Start 02/10/17 at 11:00 Morphine Sulfate (morphine) 2 mg Q4H PRN IV SEVERE PAIN LEVEL 7-10; Start 02/10 at 11:00 Pantoprazole (Protonix Iv) 40 mg BID@,18 IV ; Start 02/10/17 at 18:00 Furosemide (Lasix) 40 mg DAILY PO ; Start 02/11/17 at 09:00 Montelukast Sodium (Singulair) 10 mg QHS PO ; Start 02/10/17 at 21:00 Propranolol HCl (Inderal) 20 mg DAILY PO ; Start 02/11/17 at 09:00 Spironolactone (Aldactone) 25 mg DAILY PO ; Start 02/11/17 at 09:00 Ursodiol (Actigall) 300 mg QPM PO ; Start 02/10/17 at 21:00 Procedures Procedures Ultrasound-Guided Paracentesis IMPRESSION: 1. Successful ultrasound-guided paracentesis. ARACELI FRANKLIN NP Feb 10, 2017 11:23
[2017-02-10 15:14] VITALS: TEMP 97.5
[2017-02-10 16:27] VITALS: BP 132/67; PULSE 66; RESP 14
[2017-02-10] MEDS: PANTOPRAZOLE 40 MG INJ IV SCH (17:52)
[2017-02-10 19:23] LABS: FLUID GLUCOSE 84 mg/dl; FLUID TYPE PARACENTESIS FLUID
[2017-02-10 19:24] LABS: FLUID AMYLASE < 30 U/L; FLUID TOTAL PROTEIN < 2.0 g/dl; FLUID TYPE PARACENTESIS FLUID
[2017-02-10 20:06] LABS: FLD CLARITY HAZY; FLD COLOR YELLOW; FLD TYPE PARACENTHESIS
[2017-02-10 20:07] LABS: FLD WBC 83 /cmm; FLUID LYMPHOCYTES 26 %; FLUID MONOCYTES 59 %; FLUID NEUTROPHILS 15 %; FLUID RBC EST 0
[2017-02-10 20:43] VITALS: BP 119/71; RESP 18
[2017-02-10] MEDS: MONTELUKAST 10 MG TAB PO SCH (22:58)
[2017-02-11] VITALS (9 sets, daily range): BP systolic 99–113; BP diastolic 55–71; PULSE 63–70; RESP 14–18
[2017-02-11] MEDS: PANTOPRAZOLE 40 MG INJ IV SCH ×2 (04:48→18:08)
[2017-02-11 05:59] LABS: ADD SCAN DIFF NO
[2017-02-11 06:04] LABS: CHOL/HDL RATIO 12.2 RATIO; MAGNESIUM 1.6 mg/dl (1.7-2.5); PHOSPHORUS 3.5 mg/dl (2.5-4.9)
[2017-02-11 06:10] LABS: ABNORMAL IP MESSAGE 1; BASOPHILS % 0.4 % (0.0-2.0); EOSINOPHILS # 0.1 10^3/ul (0.0-0.5); EOSINOPHILS % 3.3 % (0.0-7.0); HEMATOCRIT 31.5 % (37.0-47.0); LYMPHOCYTES # 0.8 10^3/ul (0.8-2.9); MEAN CORPUSCULAR HEMOGLOBIN 26.3 pg (29.0-33.0); MEAN CORPUSCULAR HGB CONC 31.7 g/dl (32.0-37.0); MEAN CORPUSCULAR VOLUME 82.9 fl (82.0-101.0); MEAN PLATELET VOLUME 10.1 fl (7.4-10.4); MONOCYTE # 0.2 10^3/ul (0.3-0.9); MONOCYTES % 8.7 % (0.0-11.0); NEUTROPHIL # 1.3 10^3/ul (1.6-7.5); NEUTROPHILS % 55.2 % (39.0-77.0); RED CELL DISTRIBUTION WIDTH 19.9 % (11.5-14.5); WHITE BLOOD COUNT 2.4 10^3/ul (4.8-10.8)
[2017-02-11 06:25] LABS: PLATELET COUNT 40 10^3/UL (140-415)
[2017-02-11 06:39] LABS: INR 1.44; PROTIME 17.6 Sec (12.2-14.2); PT RATIO 1.4
[2017-02-11 06:40] LABS: PARTIAL THROMBOPLASTIN TIME 29.2 Sec (25.0-35.0)
[2017-02-11 07:49] LABS: ALBUMIN 2.1 g/dl (3.3-4.9); ALBUMIN/GLOBULIN RATIO 0.7; BILIRUBIN,INDIRECT 1.5 mg/dl (0-1.1); BILIRUBIN,TOTAL 4.5 mg/dl (0.2-1.3); CALCIUM 8.1 mg/dl (8.4-10.2); CREATININE 0.58 mg/dl (0.44-1.00); POTASSIUM 3.5 mmol/L (3.5-5.1); TOTAL PROTEIN 5.1 g/dl (6.1-8.1)
[2017-02-11] MEDS: PROPRANOLOL 20 MG TAB PO SCH (08:35)
[2017-02-11] MEDS: FUROSEMIDE 40 MG TAB PO SCH (08:36)
[2017-02-11] MEDS: SPIRONOLACTONE 25 MG TAB PO SCH (08:36)
--- NOTE | 2017-02-11 10:53 | CONS ---
Date/Time of Note Date/Time of Note DATE: 02/11/17 TIME: 10:36 Assessment/Plan Assessment/Plan Additional Assessment/Plan Agreement * Anemia/melena consider upper gi bleed vs others portal gastropathy vs bleeding peptic ulcer disease vs esophageal varices * Ascites Postal hypertension Liver cirrhosis Plan * continue present management * NPO * EGD today risks and benefit explained to patient and agreed with the planned procedure Consultation Date/Type/Reason Admit Date/Time Date of Consultation: Feb 11, 2017 Type of Consultation: Gastroenterology Reason for Consultation melena Referring Provider: ARACELI FRANKLIN CHECKER IN Hx of Present Illness 37 year old female with past medical history of liver cirrhosis,ascites anemia with multiple visit on hospital.she underwent multiple endoscopies and colonoscopy 01/15/2017.EGD performed showed No evidence of esophageal varices. Mild gastritis versus portal hypertensive gastropathy. Rule out H. pylori infection. Biopsies were obtained.and colonoscopy revealed internal hemorrhoids.She presented in the emergency room complaining of abdominal distension,melena and hematochezia of 3 days duration.She denies nausea,vomiting ,hematemesis .She underwent ultrasound guided paracentesis at the ER 600 ml taken out.Initial hemoglobin was 7.1 received 1 unit of PRBC and latest [id number] Presently ,she denies any hematemesis nor hematochezia. We have talked with the patient ,our planned to do EGD and she agreed with the planned procedure Eyes: no complaints ENT: no complaints Respiratory: shortness of breath Cardiovascular: no complaints Gastrointestinal: blood, decreased appetite Genitourinary: other (Dark-colored urine) Musculoskeletal: no complaints Skin: pruritis Neurologic: no complaints Endocrine: no complaints Lymphatic: no complaints Psychological: no complaints Immunologic: no complaints Past Medical History Medical History: other (Liver cirrhosis, thrombocytopenia, anemia) Past Surgical History Past Surgical Hx: cholecystectomy, endoscopy, other ( 2) Social History Alcohol Use: none Smoking Status: Never smoker Drug Use: none Exam/Review of Systems Vital Signs Vitals Vital Signs Date Time Temp Pulse Resp B/P Pulse Ox O2 Delivery O2 Flow Rate FiO2 02/11/17 08:17 97.7 59 16 101/59 99 02/10/17 16:27 Room Air Intake and Output 02/10/17 02/10/17 02/11/17 15:00 23:00 07:00 Intake Total 350 ml 300 ml Balance 350 ml 300 ml Exam Constitutional: alert, oriented, well developed Psych: no complaints Head: atraumatic, normocephalic Eyes: PERRL, nl conjunctiva, nl sclera ENMT: nl nasal mucosa & septum Neck: non-tender, supple Respiratory: clear to auscultation, normal air movement Cardiovascular: nl pulses, regular rate and rhythm Gastrointestinal: ascites, bowel sounds, distended, non-tender, soft, No rebound or guarding Musculoskeletal: nl extremities to inspection, nl gait and stance Extremities: normal pulses Neurological: nl mental status, nl speech, nl strength Skin: nl turgor, No rash or lesions Lymph: nl lymph nodes Results Result Diagram: 02/11/1713 02/11/17512 Results 24 hrs Laboratory Tests Test 02/11/17 05:10 02/11/17 05:13 02/11/17 05:50 Ammonia 31 H White Blood Count 2.4 #L Red Blood Count 3.80 L Hemoglobin 10.0 #L Hematocrit 31.5 L Mean Corpuscular Volume 82.9 Mean Corpuscular Hemoglobin 26.3 L Mean Corpuscular Hemoglobin Concent 31.7 L Red Cell Distribution Width 19.9 H Platelet Count 40 #L Mean Platelet Volume 10.1 Neutrophils % 55.2 Lymphocytes % 32.0 Monocytes % 8.7 Eosinophils % 3.3 Basophils % 0.4 Nucleated Red Blood Cells % 0.0 Neutrophils # 1.3 L Lymphocytes # 0.8 Monocytes # 0.2 L Eosinophils # 0.1 Basophils # 0.0 Nucleated Red Blood Cells # 0.0 Prothrombin Time 17.6 H Prothrombin Time Ratio 1.4 INR International Normalized Ratio 1.44 Activated Partial Thromboplast Time 29.2 Sodium Level 129 L Potassium Level 3.5 Chloride Level 99 Carbon Dioxide Level 29 Anion Gap 5 L Blood Urea Nitrogen 7 Creatinine 0.58 Glucose Level 77 Calcium Level 8.1 L Phosphorus Level 3.5 Magnesium Level 1.6 L Total Bilirubin 4.5 #H Direct Bilirubin 3.00 #H Indirect Bilirubin 1.5 H Aspartate Amino Transf (AST/SGOT) 111 H Alanine Aminotransferase (ALT/SGPT) 64 Alkaline Phosphatase 342 H Total Protein 5.1 L Albumin 2.1 L Globulin 3.00 Albumin/Globulin Ratio 0.70 Triglycerides Level 110 Cholesterol Level 110 LDL Cholesterol, Calculated 79 HDL Cholesterol 9 L Cholesterol/HDL Ratio 12.2 Lab Scanned Report BLOOD TRANSFUSION Medications Medications Current Medications Ondansetron HCl (Zofran Inj) 4 mg Q6H PRN IV NAUSEA AND/OR VOMITING; Start at 11:00 Acetaminophen/ Hydrocodone Bitart ([place] (5/325)) 1 tab Q6H PRN PO MODERATE PAIN LEVEL 4-6; Start 02/10/17 at 11:00 Morphine Sulfate (morphine) 2 mg Q4H PRN IV SEVERE PAIN LEVEL 7-10; Start 02/10 at 11:00 Pantoprazole (Protonix Iv) 40 mg BID@,18 IV Last administered on 02/11/17 04 :48; Admin Dose 40 MG; Start 02/10/17 at 18:00 Furosemide (Lasix) 40 mg DAILY PO Last administered on 02/11/17 08:36; Admin Dose 40 MG; Start 02/11/17 at 09:00 Montelukast Sodium (Singulair) 10 mg QHS PO Last administered on 02/10/17 22: 58; Admin Dose 10 MG; Start 02/10/17 at 21:00 Propranolol HCl (Inderal) 20 mg DAILY PO Last administered on 02/11/17 08:35; Admin Dose 20 MG; Start 02/11/17 at 09:00 Spironolactone (Aldactone) 25 mg DAILY PO Last administered on 02/11/17 08:36 ; Admin Dose 25 MG; Start 02/11/17 at 09:00 Ursodiol (Actigall) 300 mg QPM PO ; Start 02/10/17 at 21:00 Magnesium Chloride (Mag 64) 64 mg ONCE ONCE PO ; Start 02/11/17 at 11:00; Stop 02/11/17 at 11:01 HAIRSH BLACKWOOD MD Feb 11, 2017 10:47
[2017-02-11] MEDS ORDERED: MAGNESIUM CHLORIDE (SR) 64 MG TAB PO ONE (11:00)
--- NOTE | 2017-02-11 14:41 | PN ---
Date/Time of Note Date/Time of Note DATE: 02/11/17 TIME: 14:36 Assessment/Plan VTE Prophylaxis VTE Prophylaxis Intervention: contraindicated Lines/Catheters IV C[facility] Type [facility]from [facility] Sal[facility] Assessment/Plan Chief Complaint/Hosp Course 1. Melena. Etiology unclear. Could be secondary to underlying bleeding hemorrhoids versus diverticulitis versus others. Gastroenterology on the case. The patient will be continued on proton pump inhibitors. Patient is scheduled for endoscopy today. 2. Anemia. Most probably anemia secondary to acute blood loss. Transfuse blood products as needed. Continue proton pump inhibitors 3. Liver cirrhosis with portal hypertension. The patient follows up with outpatient hepatology. The patient will be continued on diuretics and propranolol. 4. Ascites. Status post paracentesis with drainage of 0.66 L of fluid. The patient will be continued on diuretics. 5. Pancytopenia. Most probably secondary to underlying liver cirrhosis. Monitor. Transfuse blood products as needed. 6. Transaminitis with hyperbilirubinemia. Most probably secondary to underlying liver cirrhosis. Avoid hepatotoxic medications. Trend LFTs. 7. Fluids, electrolytes, and nutrition. N.p.o. for procedure. 8. DVT prophylaxis. Contraindicated. 9. Gastrointestinal prophylaxis. Proton pump inhibitors. 10. Plan. Continue proton pump inhibitors. Await esophagogastroduodenoscopy. The case and management of this patient was fully discussed with Dr. Kapadia. Problems: Subjective 24 Hr Interval Summary Free Text/Dictation H&H remained stable. Had 2 episodes of hematochezia. Exam/Review of Systems Vital Signs Vitals Vital Signs Date Time Temp Pulse Resp B/P Pulse Ox O2 Delivery O2 Flow Rate FiO2 02/11/17 08:17 97.7 59 16 101/59 99 02/10/17 16:27 Room Air Intake and Output 02/10/17 02/10/17 02/11/17 15:00 23:00 07:00 Intake Total 350 ml 300 ml Balance 350 ml 300 ml Exam General: Pale looking 37 year-old male lying in bed in no apparent distress. HEENT: Normocephalic, atraumatic. Eyes: Icteric sclerae, conjunctivae clear. ENT : Nasal septum midline, oral mucosa moist. Neck supple, no JVD noticed. Respiratory: Bilaterally clear breath sounds. No use of accessory muscles of respiration. No adventitious breath sounds. Cardiovascular: S1, S2 heard. Regular rate and rhythm. Abdomen: Soft, distended. Bowel sounds positive in all 4 quadrants. Diffuse tenderness. Genitourinary: Deferred. Extremities: No cyanosis, no clubbing. Left lower extremity 1-2+ pitting edema. Neurologic: Cranial nerves II through XII grossly intact. The patient is awake, alert, and oriented. Skin: Normal skin turgor. No skin rashes. Results Result Diagram: 02/11/17 0513 02/11/17 0513 Results 24 hrs Laboratory Tests Test 02/11/17 05:10 02/11/17 05:13 02/11/17 05:50 Ammonia 31 H White Blood Count 2.4 #L Red Blood Count 3.80 L Hemoglobin 10.0 #L Hematocrit 31.5 L Mean Corpuscular Volume 82.9 Mean Corpuscular Hemoglobin 26.3 L Mean Corpuscular Hemoglobin Concent 31.7 L Red Cell Distribution Width 19.9 H Platelet Count 40 #L Mean Platelet Volume 10.1 Neutrophils % 55.2 Lymphocytes % 32.0 Monocytes % 8.7 Eosinophils % 3.3 Basophils % 0.4 Nucleated Red Blood Cells % 0.0 Neutrophils # 1.3 L Lymphocytes # 0.8 Monocytes # 0.2 L Eosinophils # 0.1 Basophils # 0.0 Nucleated Red Blood Cells # 0.0 Prothrombin Time 17.6 H Prothrombin Time Ratio 1.4 INR International Normalized Ratio 1.44 Activated Partial Thromboplast Time 29.2 Sodium Level 129 L Potassium Level 3.5 Chloride Level 99 Carbon Dioxide Level 29 Anion Gap 5 L Blood Urea Nitrogen 7 Creatinine 0.58 Glucose Level 77 Calcium Level 8.1 L Phosphorus Level 3.5 Magnesium Level 1.6 L Total Bilirubin 4.5 #H Direct Bilirubin 3.00 #H Indirect Bilirubin 1.5 H Aspartate Amino Transf (AST/SGOT) 111 H Alanine Aminotransferase (ALT/SGPT) 64 Alkaline Phosphatase 342 H Total Protein 5.1 L Albumin 2.1 L Globulin 3.00 Albumin/Globulin Ratio 0.70 Triglycerides Level 110 Cholesterol Level 110 LDL Cholesterol, Calculated 79 HDL Cholesterol 9 L Cholesterol/HDL Ratio 12.2 Lab Scanned Report BLOOD TRANSFUSION Medications Medications Current Medications Ondansetron HCl (Zofran Inj) 4 mg Q6H PRN IV NAUSEA AND/OR VOMITING; Start at 11:00 Acetaminophen/ Hydrocodone Bitart ([place] (5/325)) 1 tab Q6H PRN PO MODERATE PAIN LEVEL 4-6; Start 02/10/17 at 11:00 Morphine Sulfate (morphine) 2 mg Q4H PRN IV SEVERE PAIN LEVEL 7-10; Start 02/10 at 11:00 Pantoprazole (Protonix Iv) 40 mg BID@06,18 IV Last administered on 02/11/17 04 :48; Admin Dose 40 MG; Start 02/10/17 at 18:00 Furosemide (Lasix) 40 mg DAILY PO Last administered on 02/11/17 08:36; Admin Dose 40 MG; Start 02/11/17 at 09:00 Montelukast Sodium (Singulair) 10 mg QHS PO Last administered on 02/10/17 22: 58; Admin Dose 10 MG; Start 02/10/17 at 21:00 Propranolol HCl (Inderal) 20 mg DAILY PO Last administered on 02/11/17 08:35; Admin Dose 20 MG; Start 02/11/17 at 09:00 Spironolactone (Aldactone) 25 mg DAILY PO Last administered on 02/11/17 08:36 ; Admin Dose 25 MG; Start 02/11/17 at 09:00 Ursodiol (Actigall) 300 mg QPM PO ; Start 02/10/17 at 21:00 ARACELI FRANKLIN NP Feb 11, 2017 14:40
[2017-02-11] MEDS ORDERED: LIDOCAINE 2% (SDV) 5 ML INJ ONE (17:13)
[2017-02-11] MEDS ORDERED: PROPOFOL 20 ML ONE (17:13)
[2017-02-11] MEDS: MONTELUKAST 10 MG TAB PO SCH (20:37)
[2017-02-11] MEDS: URSODIOL 300 MG CAP PO SCH (20:37)
[2017-02-12 02:00] VITALS: BP 108/54; RESP 19
[2017-02-12 05:46] LABS: ABNORMAL IP MESSAGE 1; ADD SCAN DIFF NO; BASOPHILS % 0.5 % (0.0-2.0); EOSINOPHILS # 0.1 10^3/ul (0.0-0.5); EOSINOPHILS % 2.8 % (0.0-7.0); HEMATOCRIT 27.4 % (37.0-47.0); HEMOGLOBIN 8.7 g/dl (12.0-16.0); LYMPHOCYTES # 0.7 10^3/ul (0.8-2.9); LYMPHOCYTES % 31.9 % (15.0-51.0); MEAN CORPUSCULAR HGB CONC 31.8 g/dl (32.0-37.0); MONOCYTE # 0.2 10^3/ul (0.3-0.9); MONOCYTES % 10.2 % (0.0-11.0); NEUTROPHIL # 1.2 10^3/ul (1.6-7.5); NEUTROPHILS % 54.1 % (39.0-77.0); PLATELET COUNT 36 10^3/UL (140-415); RED BLOOD COUNT 3.34 10^6/ul (4.20-5.40); WHITE BLOOD COUNT 2.2 10^3/ul (4.8-10.8)
[2017-02-12] MEDS: PANTOPRAZOLE 40 MG INJ IV SCH ×2 (06:08→17:36)
[2017-02-12 06:24] LABS: ALBUMIN/GLOBULIN RATIO 0.74
[2017-02-12 07:02] LABS: CREATININE 0.66 mg/dl (0.44-1.00); POTASSIUM 3.2 mmol/L (3.5-5.1)
[2017-02-12 07:03] LABS: BILIRUBIN,DIRECT 1.6 mg/dl (0.00-0.20); BILIRUBIN,INDIRECT 0.7 mg/dl (0-1.1); BILIRUBIN,TOTAL 2.3 mg/dl (0.2-1.3); TOTAL PROTEIN 4.7 g/dl (6.1-8.1)
[2017-02-12 07:06] LABS: MAGNESIUM 1.5 mg/dl (1.7-2.5); PHOSPHORUS 3.2 mg/dl (2.5-4.9)
[2017-02-12] MEDS: SPIRONOLACTONE 25 MG TAB PO SCH (09:03)
[2017-02-12] MEDS: PROPRANOLOL 20 MG TAB PO SCH (09:03)
[2017-02-12] MEDS: FUROSEMIDE 40 MG TAB PO SCH (09:03)
[2017-02-12 09:04] VITALS: BP 117/65; PULSE 68
[2017-02-12] MEDS ORDERED: POTASSIUM CHLORIDE (SR) 20 MEQ TAB PO STA (10:44)
--- NOTE | 2017-02-12 10:54 | PN ---
Date/Time of Note Date/Time of Note DATE: 02/12/17 TIME: 10:50 Assessment/Plan VTE Prophylaxis VTE Prophylaxis Intervention: contraindicated Lines/Catheters IV [facility] Type (from [facility] Saline Lock Assessment/Plan Chief Complaint/Hosp Course 1. Melena. Gastroenterology on the case. Status post esophagogastroduodenoscopy on 02/11/2017. Official results are pending at this time. As per nursing, the patient had esophageal varices. The patient will be continued on proton pump inhibitors. 2. Anemia secondary to acute blood loss. Transfuse blood products as needed. Continue proton pump inhibitors 3. Liver cirrhosis with portal hypertension. The patient follows up with outpatient hepatology. The patient will be continued on diuretics and propranolol. 4. Ascites. Status post paracentesis with drainage of 0.66 L of fluid. The patient will be continued on diuretics. 5. Pancytopenia. Most probably secondary to underlying liver cirrhosis. Monitor. Transfuse blood products as needed. 6. Transaminitis with hyperbilirubinemia. Most probably secondary to underlying liver cirrhosis. Avoid hepatotoxic medications. Trend LFTs. 7. Hyperammonemia. We will start the patient on lactulose. 8. Fluids, electrolytes, and nutrition. Low-sodium diet. 9. DVT prophylaxis. Contraindicated. 10. Gastrointestinal prophylaxis. Proton pump inhibitors. 11. Plan. Continue proton pump inhibitors. Replete potassium and magnesium. The case and management of this patient was fully discussed with Dr. Kapadia. Problems: Subjective 24 Hr Interval Summary Free Text/Dictation Had an episode of nausea and vomiting in the morning. Complains of vague abdominal pain. Exam/Review of Systems Vital Signs Vitals Vital Signs Date Time Temp Pulse Resp B/P Pulse Ox O2 Delivery O2 Flow Rate FiO2 02/12/17 09:04 98.0 68 117/65 02/12/17 02:00 19 98 02/11/17 18:04 Room Air 02/11/17 17:27 5 Intake and Output 02/11/17 02/11/17 02/12/17 15:00 23:00 07:00 Intake Total 300 ml 850 ml Output Total 850 ml 650 ml Balance -550 ml 200 ml Exam General: Pale looking 37 year-old male lying in bed in no apparent distress. HEENT: Normocephalic, atraumatic. Eyes: Icteric sclerae, conjunctivae clear. ENT : Nasal septum midline, oral mucosa moist. Neck supple, no JVD noticed. Respiratory: Bilaterally clear breath sounds. No use of accessory muscles of respiration. No adventitious breath sounds. Cardiovascular: S1, S2 heard. Regular rate and rhythm. Abdomen: Soft, distended. Bowel sounds positive in all 4 quadrants. Diffuse tenderness. Genitourinary: Deferred. Extremities: No cyanosis, no clubbing. Left lower extremity 1-2+ pitting edema. Neurologic: Cranial nerves II through XII grossly intact. The patient is awake, alert, and oriented. Skin: Normal skin turgor. No skin rashes. Results Result Diagram: 02/12/17 0501 02/12/17 0457 Results 24 hrs Laboratory Tests Test 02/12/17 04:57 02/12/17 05:01 02/12/17 09:05 Sodium Level 138 Potassium Level 3.2 L Chloride Level 100 Carbon Dioxide Level 29 Anion Gap 12 Blood Urea Nitrogen 8 Creatinine 0.66 Glucose Level 90 Calcium Level 7.0 L Total Bilirubin 2.3 #H Direct Bilirubin 1.60 #H Indirect Bilirubin 0.7 Aspartate Amino Transf (AST/SGOT) 106 H Alanine Aminotransferase (ALT/SGPT) 63 Alkaline Phosphatase 320 H Total Protein 4.7 L Albumin 2.0 L Globulin 2.70 Albumin/Globulin Ratio 0.74 White Blood Count 2.2 L Red Blood Count 3.34 L Hemoglobin 8.7 L Hematocrit 27.4 L Mean Corpuscular Volume 82.0 Mean Corpuscular Hemoglobin 26.0 L Mean Corpuscular Hemoglobin Concent 31.8 L Red Cell Distribution Width 20.0 H Platelet Count 36 L Mean Platelet Volume 10.0 Neutrophils % 54.1 Lymphocytes % 31.9 Monocytes % 10.2 Eosinophils % 2.8 Basophils % 0.5 Nucleated Red Blood Cells % 0.0 Neutrophils # 1.2 L Lymphocytes # 0.7 L Monocytes # 0.2 L Eosinophils # 0.1 Basophils # 0.0 Nucleated Red Blood Cells # 0.0 Phosphorus Level 3.2 Magnesium Level 1.5 L Ammonia 87 #H Medications Medications Current Medications Ondansetron HCl (Zofran Inj) 4 mg Q6H PRN IV NAUSEA AND/OR VOMITING; Start at 11:00 Acetaminophen/ Hydrocodone Bitart ([place] (5/325)) 1 tab Q6H PRN PO MODERATE PAIN LEVEL 4-6; Start 02/10/17 at 11:00 Morphine Sulfate (morphine) 2 mg Q4H PRN IV SEVERE PAIN LEVEL 7-10 Last administered on 02/11/17 23:23; Admin Dose 2 MG; Start 02/10/17 at 11:00 Pantoprazole (Protonix Iv) 40 mg BID@06,18 IV Last administered on 02/12/17 06 :08; Admin Dose 40 MG; Start 02/10/17 at 18:00 Furosemide (Lasix) 40 mg DAILY PO Last administered on 02/12/17 09:03; Admin Dose 40 MG; Start 02/11/17 at 09:00 Montelukast Sodium (Singulair) 10 mg QHS PO Last administered on 02/11/17 20: 37; Admin Dose 10 MG; Start 02/10/17 at 21:00 Propranolol HCl (Inderal) 20 mg DAILY PO Last administered on 02/12/17 09:03; Admin Dose 20 MG; Start 02/11/17 at 09:00 Spironolactone (Aldactone) 25 mg DAILY PO Last administered on 02/12/17 09:03 ; Admin Dose 25 MG; Start 02/11/17 at 09:00 Ursodiol (Actigall) 300 mg QPM PO Last administered on 02/11/17 20:37; Admin Dose 300 MG; Start 02/10/17 at 21:00 ARACELI FRANKLIN NP Feb 12, 2017 10:53
[2017-02-12] MEDS ORDERED: MAGNESIUM SULFATE 2 GM/50 ML 50 ML IVPB ONE (11:00)
[2017-02-12] MEDS: LACTULOSE 30ML CUP PO SCH ×2 (11:28→21:59)
--- NOTE | 2017-02-12 11:43 | PN ---
Date/Time of Note Date/Time of Note DATE: 02/12/17 TIME: 11:42 Assessment/Plan VTE Prophylaxis VTE Prophylaxis Intervention: SCD's Lines/Catheters IV [facility]from [facility] Saline Lock Assessment/Plan Assessment/Plan Agreement * Anemia/melena * EGD 02/11/2017 Grade I/IV esophageal varices with no stigmata Portal gastropathy versus gastritis. Biopsies obtained to rule out H. pylori infection. Otherwise normal EGD Plan: * Continue PPI therapy * Monitor H&H and transfuse as necessary * Advance diet as tolerated consider upper gi bleed vs others portal gastropathy vs bleeding peptic ulcer disease vs esophageal varices * Cirrhosis of liver * Ascites * Portal hypertension/esophageal varices and * Coagulopathy Plan * continue present management * Monitor H&H and transfuse as necessary Subjective 24 Hr Interval Summary Free Text/Dictation Course reviewed with nursing staff Patient complains of feeling nauseous after dinner last night and vomited Emesis nonbloody Feeling better today, had breakfast and tolerated Still feels abdominal distention Exam/Review of Systems Vital Signs Vitals Vital Signs Date Time Temp Pulse Resp B/P Pulse Ox O2 Delivery O2 Flow Rate FiO2 02/12/17 09:04 98.0 68 117/65 02/12/17 02:00 19 98 02/11/17 18:04 Room Air 02/11/17 17:27 5 Intake and Output 02/11/17 02/11/17 02/12/17 15:00 23:00 07:00 Intake Total 300 ml 850 ml Output Total 850 ml 650 ml Balance -550 ml 200 ml Exam Constitutional: alert, oriented, well developed Head: normocephalic Eyes: icteric Neck: supple Respiratory: clear to auscultation, normal air movement Cardiovascular: nl pulses, regular rate and rhythm Gastrointestinal: ascites (Moderate), bowel sounds, distended, soft, tender ( Mild diffuse tenderness), No mass, No rebound or guarding Musculoskeletal: nl extremities to inspection Skin: other (Anicteric, positive stigmata of chronic liver disease) Results Result Diagram: 02/12/17 0501 02/12/17 0457 Results 24 hrs Laboratory Tests Test 02/12/17 04:57 02/12/17 05:01 02/12/17 09:05 Sodium Level 138 Potassium Level 3.2 L Chloride Level 100 Carbon Dioxide Level 29 Anion Gap 12 Blood Urea Nitrogen 8 Creatinine 0.66 Glucose Level 90 Calcium Level 7.0 L Total Bilirubin 2.3 #H Direct Bilirubin 1.60 #H Indirect Bilirubin 0.7 Aspartate Amino Transf (AST/SGOT) 106 H Alanine Aminotransferase (ALT/SGPT) 63 Alkaline Phosphatase 320 H Total Protein 4.7 L Albumin 2.0 L Globulin 2.70 Albumin/Globulin Ratio 0.74 White Blood Count 2.2 L Red Blood Count 3.34 L Hemoglobin 8.7 L Hematocrit 27.4 L Mean Corpuscular Volume 82.0 Mean Corpuscular Hemoglobin 26.0 L Mean Corpuscular Hemoglobin Concent 31.8 L Red Cell Distribution Width 20.0 H Platelet Count 36 L Mean Platelet Volume 10.0 Neutrophils % 54.1 Lymphocytes % 31.9 Monocytes % 10.2 Eosinophils % 2.8 Basophils % 0.5 Nucleated Red Blood Cells % 0.0 Neutrophils # 1.2 L Lymphocytes # 0.7 L Monocytes # 0.2 L Eosinophils # 0.1 Basophils # 0.0 Nucleated Red Blood Cells # 0.0 Phosphorus Level 3.2 Magnesium Level 1.5 L Ammonia 87 #H Medications Medications Current Medications Ondansetron HCl (Zofran Inj) 4 mg Q6H PRN IV NAUSEA AND/OR VOMITING; Start at 11:00 Acetaminophen/ Hydrocodone Bitart ([place] (5/325)) 1 tab Q6H PRN PO MODERATE PAIN LEVEL 4-6; Start 02/10/17 at 11:00 Morphine Sulfate (morphine) 2 mg Q4H PRN IV SEVERE PAIN LEVEL 7-10 Last administered on 02/11/17 23:23; Admin Dose 2 MG; Start 02/10/17 at 11:00 Pantoprazole (Protonix Iv) 40 mg BID@06,18 IV Last administered on 02/12/17 06 :08; Admin Dose 40 MG; Start 02/10/17 at 18:00 Furosemide (Lasix) 40 mg DAILY PO Last administered on 02/12/17 09:03; Admin Dose 40 MG; Start 02/11/17 at 09:00 Montelukast Sodium (Singulair) 10 mg QHS PO Last administered on 02/11/17 20: 37; Admin Dose 10 MG; Start 02/10/17 at 21:00 Propranolol HCl (Inderal) 20 mg DAILY PO Last administered on 02/12/17 09:03; Admin Dose 20 MG; Start 02/11/17 at 09:00 Spironolactone (Aldactone) 25 mg DAILY PO Last administered on 02/12/17 09:03 ; Admin Dose 25 MG; Start 02/11/17 at 09:00 Ursodiol 300 mg 300 mg QPM PO Last administered on 02/11/17 20:37; Admin Dose 300 MG; Start 02/10/17 at 21:00 Magnesium Sulfate (Magnesium Sulfate 2 Gm/50 ml) 50 ml @ 25 mls/hr ONCE ONCE IVPB Last administered on 02/12/17 11:29; Admin Dose 25 MLS/HR; Start at 11:00; Stop 02/12/17 at 12:59 Lactulose (Enulose) 20 gm Q8 PO Last administered on 02/12/17 11:28; Admin Dose 20 GM; Start 02/12/17 at 11:30 HARISH BLACKWOOD MD Feb 12, 2017 11:43
--- NOTE | 2017-02-12 11:45 | OPR ---
Date/Time of Note Date/Time of Note DATE: 02/12/17 TIME: 11:43 Operative Report Preoperative Diagnosis * Anemia/GI bleeding Postoperative Diagnosis Impression: * Grade I/IV esophageal varices with no stigmata * Portal gastropathy versus gastritis. Biopsies obtained to rule out H. pylori infection. * Otherwise normal EGD Plan: * Continue PPI therapy * Monitor H&H and transfuse as necessary * Advance diet as tolerated Operation/Procedure Performed * EGD with biopsy Surgeon: HARISH BLACKWOOD MD Anesthesia: MAC Estimated Blood Loss: none Specimens * Gastric antrum Grafts/Implants * None Complications: None HARISH BLACKWOOD MD Feb 12, 2017 11:45
[2017-02-12 15:53] LABS: ADD UMIC YES; UR ASCORBIC ACID NEGATIVE (NEGATIVE); UR BILIRUBIN (Dip) 2+ mg/dL (NEGATIVE); UR BLOOD (Dip) 2+ mg/dL (NEGATIVE); UR CLARITY SLIGHTLY CLOUDY (CLEAR); UR COLOR AMBER (YELLOW); UR GLUCOSE (Dip) NEGATIVE (NEGATIVE); UR KETONES (Dip) NEGATIVE (NEGATIVE); UR LEUKOCYTE ESTERASE (Dip) NEGATIVE Leu/ul (NEGATIVE); UR MUCUS FEW /HPF (NONE SEEN); UR NITRITE (Dip) NEGATIVE (NEGATIVE); UR RBC 8 /HPF (0-5); UR SPECIFIC GRAVITY (Dip) 1.015 (1.003-1.030); UR SQUAMOUS EPITHELIAL CELL FEW /HPF (FEW); UR TOTAL PROTEIN (Dip) NEGATIVE (NEGATIVE); UR UROBILINOGEN (Dip) 2+ mg/dL (NEGATIVE)
[2017-02-12] MEDS: URSODIOL 300 MG CAP PO SCH (20:36)
[2017-02-12] MEDS: MONTELUKAST 10 MG TAB PO SCH (20:36)
[2017-02-12 20:43] VITALS: BP 103/56; RESP 18
[2017-02-13 02:45] VITALS: BP 111/65; RESP 16
[2017-02-13] MEDS: PANTOPRAZOLE 40 MG INJ IV SCH (05:16)
[2017-02-13] MEDS: LACTULOSE 30ML CUP PO SCH ×2 (05:16→13:17)
[2017-02-13 05:37] LABS: ADD SCAN DIFF NO
[2017-02-13 05:49] LABS: ABNORMAL IP MESSAGE 1; BASOPHILS % 0.5 % (0.0-2.0); EOSINOPHILS # 0.1 10^3/ul (0.0-0.5); EOSINOPHILS % 2.9 % (0.0-7.0); HEMATOCRIT 29.6 % (37.0-47.0); HEMOGLOBIN 9.4 g/dl (12.0-16.0); LYMPHOCYTES # 0.7 10^3/ul (0.8-2.9); LYMPHOCYTES % 32.7 % (15.0-51.0); MEAN CORPUSCULAR HEMOGLOBIN 26.7 pg (29.0-33.0); MEAN CORPUSCULAR HGB CONC 31.8 g/dl (32.0-37.0); MEAN CORPUSCULAR VOLUME 84.1 fl (82.0-101.0); MEAN PLATELET VOLUME 9.7 fl (7.4-10.4); MONOCYTE # 0.2 10^3/ul (0.3-0.9); MONOCYTES % 10.7 % (0.0-11.0); NEUTROPHIL # 1.1 10^3/ul (1.6-7.5); NEUTROPHILS % 53.2 % (39.0-77.0); RED BLOOD COUNT 3.52 10^6/ul (4.20-5.40); RED CELL DISTRIBUTION WIDTH 20.4 % (11.5-14.5); WHITE BLOOD COUNT 2.1 10^3/ul (4.8-10.8)
[2017-02-13 05:52] LABS: PLATELET COUNT 40 10^3/UL (140-415)
[2017-02-13 05:59] LABS: PHOSPHORUS 2.5 mg/dl (2.5-4.9)
[2017-02-13 06:00] LABS: ALBUMIN 2.1 g/dl (3.3-4.9); ALBUMIN/GLOBULIN RATIO 0.72; BILIRUBIN,DIRECT 1.1 mg/dl (0.00-0.20); BILIRUBIN,INDIRECT 0.8 mg/dl (0-1.1); BILIRUBIN,TOTAL 1.9 mg/dl (0.2-1.3); CALCIUM 7.7 mg/dl (8.4-10.2); CREATININE 0.6 mg/dl (0.44-1.00); POTASSIUM 3.8 mmol/L (3.5-5.1)
[2017-02-13 08:15] VITALS: BP 112/61; RESP 19
[2017-02-13] MEDS: FUROSEMIDE 40 MG TAB PO SCH (09:34)
[2017-02-13] MEDS: PROPRANOLOL 20 MG TAB PO SCH (09:34)
[2017-02-13] MEDS: SPIRONOLACTONE 25 MG TAB PO SCH (09:34)
--- NOTE | 2017-02-13 10:48 | PDOCDIS ---
Discharge Instructions DIAGNOSIS Discharge Diagnosis Melena. Anemia. CONDITION Patient Condition: Stable HOME CARE INSTRUCTIONS: Special Diet: 2gm Na OTHER ORDERS: Other Orders: 1. Low-sodium diet. 2. Resume home medications. 3. 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 4. Resume activities as tolerated. 5. Go to the nearest ER if you have significant blood in stool or blood in vomitus, significant abdominal distention, shortness of breath, or any other unusual signs/symptoms. ARACELI FRANKLIN NP Feb 13, 2017 10:48
[2017-02-13] MEDS ORDERED: LACT20SO12 PO (10:53)
--- NOTE | 2017-02-13 11:28 | DS ---
Date/Time of Note Date/Time of Note DATE: 02/13/17 TIME: 11:25 Discharge Summary Admission/Discharge Info Admit Date/Time Feb 10, 2017 at 07:35 Discharge Date/Time Discharge Diagnosis 1. Melena. 2. Anemia secondary to acute blood loss. 3. Liver cirrhosis with portal hypertension and esophageal varices. 4. Ascites. 5. Pancytopenia. 6. Transaminitis with hyperbilirubinemia. 7. Hyperammonemia. Patient Condition: Stable Consults 1. Lucas Manzano MD, Gastroenterology. Procedures Esophagogastroduodenoscopy Impression: * Grade I/IV esophageal varices with no stigmata * Portal gastropathy versus gastritis. Biopsies obtained to rule out H. pylori infection. * Otherwise normal EGD Hx of Present Illness Reason for admission: Hematochezia, abdominal distention. Consultants 1. Lucas Manzano MD, Gastroenterology. This is a 37-year-old female with past medical history of liver cirrhosis of unclear etiology, portal hypertension, and anemia who came to the emergency room with a chief complaint of multiple episodes of hematochezia. The patient visited the discharge clinic on 02/07/2017 with complaints of abdominal distention as well as bilateral lower extremity edema when she was discharged home on Lasix in addition to her routine medications. The patient also verbalized an episode of fever and chills a week ago. The patient was also complaining of some dyspnea secondary to abdominal distention. The patient denied any diarrhea or dysuria. In the emergency room, the patient was noticed to have pancytopenia. The patient's hemoglobin was 7.9. She had some hyponatremia and hypokalemia. Patient's INR was 1.45. The patient underwent an ultrasound-guided paracentesis by interventional radiology with the drainage of 0.66 L of serous fluid. Hospital Course Patient was admitted to inpatient medical surgical floor. Gastroenterology consult was obtained. The patient was maintained on proton pump inhibitor therapy. The patient underwent a esophagogastroduodenoscopy on 02/11/2017 that showed grade 1/4 esophageal varices with no stigmata and portal gastropathy versus gastritis. The patient was continued on proton pump inhibitor therapy. The patient's pathology from gastric biopsy are pending at this time. The patient's H&H remained stable and the patient did get a transfusion of 1 unit of PRBC during this hospitalization. The patient has underlying liver cirrhosis of unclear etiology. The patient follows up with automatic pinsetter mechanic as outpatient. Patient was maintained on diuretics including potassium sparing and potassium depleting diuretics. The patient was also maintained on propranolol. The patient was noticed to have hyperammonemia. Patient was started on lactulose with improvement of the patient's ammonia levels. The patient had no evidence of any hepatic encephalopathy. Patient had underlying ascites. Patient underwent a ultrasound -guided paracentesis on the day of admission that drains 0.66 L of fluid. The patient had no evidence of any SBP. Patient has underlying pancytopenia secondary to liver cirrhosis. Patient's blood counts remained stable. The patient also had underlying transaminitis with hyperbilirubinemia, most probably secondary to liver cirrhosis. The patient's LFTs remained stable. Hepatotoxic drugs were avoided. Patient had a stable hospital course. Patient is stable to be discharged home. The patient has no more melena reported. Discharge Instructions 1. Low-sodium diet. 2. Resume home medications. 3. Follow-up with your automatic pinsetter mechanic as scheduled. 4. Resume activities as tolerated. 5. Go to the nearest ER if you have significant blood in stool or blood in vomitus, significant abdominal distention, shortness of breath, or any other unusual signs/symptoms. The patient verbalized understanding of her discharge instructions. I would like to thank Dr. Manzano for seeing the patient, doing the necessary procedures, and providing clinical recommendations. The case and management of this patient was fully discussed with Dr. Kapadia. Home Meds Active Scripts Pantoprazole* (Protonix*) 40 Mg Tablet., 40 MG PO BID, #60 TAB Prov:ARACELI FRANKLIN CONTRACTS SPECIALIST 02/13/17 Lactulose* (Cephulac*) 20 Gm/30 Ml Soln, 20 GM PO Q8 for 30 Days, #1 BOTTLE Prov:ARACELI FRANKLIN CONTRACTS SPECIALIST 02/13/17 Reported Medications Furosemide* (Furosemide*) 40 Mg Tablet, 40 MG PO DAILY, TAB 02/10/17 Obeticholic Acid (Ocaliva) 5 Mg Tablet, 5 MG PO DAILY, TAB 02/10/17 Montelukast Sodium* (Montelukast Sodium*) 10 Mg Tablet, 10 MG PO QHS, #30 TAB 10/13/15 Propranolol Hcl* (Propranolol Hcl*) 20 Mg Tablet, 20 MG PO DAILY, TAB 10/13/15 Spironolactone* (Aldactone*) 25 Mg Tablet, 25 MG PO DAILY, #30 TAB 10/13/15 Ursodiol* (Ursodiol*) 300 Mg Capsule, 300 MG PO QPM, CAP 10/13/15 Discontinued Reported Medications Omeprazole* (Omeprazole*) 40 Mg Capsule.dr, 40 MG PO DAILY, #30 CAP 10/13/15 Obeticholic Acid (Ocaliva) 5 Mg Tablet, 5 MG PO, TAB 01/14/17 Discontinued Scripts Docusate Calcium* (Docusate Calcium*) 240 Mg Capsule, 240 MG PO DAILY for 30 Days, #30 CAP Prov:IBIS CROWE MD 01/16/17 Psyllium* (Metamucil*) 1 Pkt Susp, 1 PKT PO DAILY for 30 Days, #30 PKT Prov:IBIS CROWE MD 01/16/17 Follow-up Plan Follow-up with your automatic pinsetter mechanic as scheduled. Follow-up with your primary care physician 1 week. Primary Care Provider Tania Lentz Time spent on discharge: > 30 minutes Pending Labs Laboratory Tests Test 02/13/17 04:54 02/13/17 04:58 White Blood Count 2.110^3/ul (4.8-10.8) Red Blood Count 3.5210^6/ul (4.20-5.40) Hemoglobin 9.4g/dl (12.0-16.0) Hematocrit 29.6% (37.0-47.0) Mean Corpuscular Volume 84.1fl (82.0-101.0) Mean Corpuscular Hemoglobin 26.7pg (29.0-33.0) Mean Corpuscular Hemoglobin Concent 31.8g/dl (32.0-37.0) Red Cell Distribution Width 20.4% (11.5-14.5) Platelet Count 4010^3/UL (140-415) Mean Platelet Volume 9.7fl (7.4-10.4) Neutrophils % 53.2% (39.0-77.0) Lymphocytes % 32.7% (15.0-51.0) Monocytes % 10.7% (0.0-11.0) Eosinophils % 2.9% (0.0-7.0) Basophils % 0.5% (0.0-2.0) Nucleated Red Blood Cells % 0.0/100WBC (0.0-0.0) Neutrophils # 1.110^3/ul (1.6-7.5) Lymphocytes # 0.710^3/ul (0.8-2.9) Monocytes # 0.210^3/ul (0.3-0.9) Eosinophils # 0.110^3/ul (0.0-0.5) Basophils # 0.010^3/ul (0.0-0.1) Nucleated Red Blood Cells # 0.010^3/ul (0.0-0.0) Sodium Level 140mmol/L (135-144) Potassium Level 3.8mmol/L (3.5-5.1) Chloride Level 101mmol/L (97-110) Carbon Dioxide Level 29mmol/L (21-31) Anion Gap 14 (8-16) Blood Urea Nitrogen 5mg/dl (7-20) Creatinine 0.60mg/dl (0.44-1.00) Glucose Level 89mg/dl (70-220) Calcium Level 7.7mg/dl (8.4-10.2) Phosphorus Level 2.5mg/dl (2.5-4.9) Magnesium Level 2.0mg/dl (1.7-2.5) Total Bilirubin 1.9mg/dl (0.2-1.3) Direct Bilirubin 1.10mg/dl (0.00-0.20) Indirect Bilirubin 0.8mg/dl (0-1.1) Aspartate Amino Transf (AST/SGOT) 117IU/L (15-46) Alanine Aminotransferase (ALT/SGPT) 62IU/L (13-69) Alkaline Phosphatase 352IU/L (42-121) Total Protein 5.0g/dl (6.1-8.1) Albumin 2.1g/dl (3.3-4.9) Globulin 2.90g/dl (1.3-3.2) Albumin/Globulin Ratio 0.72 Ammonia 30umol/l (9-30) ARACELI FRANKLIN NP Feb 13, 2017 11:28
[2017-02-13] MEDS ORDERED: PANT40TA3 PO (11:42)
--- NOTE | 2017-02-13 12:01 | PN ---
Date/Time of Note Date/Time of Note DATE: 02/13/17 TIME: 11:56 Assessment/Plan VTE Prophylaxis VTE Prophylaxis Intervention: SCD's Lines/Catheters IV [facility] Saline Lock Urinary Cath still in place: No Assessment/Plan Assessment/Plan Assessment: * Anemia/melena * EGD 02/11/2017 Grade I/IV esophageal varices with no stigmata Portal gastropathy versus gastritis. Biopsies obtained to rule out H. pylori infection. Otherwise normal EGD * Continue PPI therapy * Monitor H&H and transfuse as necessary * Advance diet as tolerated consider upper gi bleed vs others portal gastropathy vs bleeding peptic ulcer disease vs esophageal varices * Cirrhosis of liver * Ascites * Portal hypertension/esophageal varices and * Coagulopathy Plan * Agree with outpatient management * Continue present regimen Subjective 24 Hr Interval Summary Free Text/Dictation Course reviewed with nursing staff Patient feels better, still complaining of abdominal distention postprandial No further nausea vomiting Tolerating diet without difficulties No evidence of GI bleeding Being discharged today for outpatient management Exam/Review of Systems Vital Signs Vitals Vital Signs Date Time Temp Pulse Resp B/P Pulse Ox O2 Delivery O2 Flow Rate FiO2 02/13/17 08:15 97.9 73 19 112/61 97 02/11/17 18:04 Room Air 02/11/17 17:27 5 Intake and Output 02/12/17 02/12/17 02/13/17 15:00 23:00 07:00 Intake Total 750 ml 1400 ml Output Total 1450 ml Balance 750 ml -50 ml Exam Constitutional: alert, oriented, well developed Head: normocephalic Eyes: icteric Neck: supple Respiratory: clear to auscultation, normal air movement Cardiovascular: nl pulses, regular rate and rhythm Gastrointestinal: ascites (Moderate), bowel sounds, distended, soft, tender ( Mild diffuse tenderness), No mass, No rebound or guarding Musculoskeletal: nl extremities to inspection Skin: other (Anicteric, positive stigmata of chronic liver disease) Skin: No rash or lesions Results Result Diagram: 02/13/17 0454 02/13/17 0454 Results 24 hrs Laboratory Tests Test 02/13/17 04:54 02/13/17 04:58 White Blood Count 2.1 L Red Blood Count 3.52 L Hemoglobin 9.4 L Hematocrit 29.6 L Mean Corpuscular Volume 84.1 Mean Corpuscular Hemoglobin 26.7 L Mean Corpuscular Hemoglobin Concent 31.8 L Red Cell Distribution Width 20.4 H Platelet Count 40 L Mean Platelet Volume 9.7 Neutrophils % 53.2 Lymphocytes % 32.7 Monocytes % 10.7 Eosinophils % 2.9 Basophils % 0.5 Nucleated Red Blood Cells % 0.0 Neutrophils # 1.1 L Lymphocytes # 0.7 L Monocytes # 0.2 L Eosinophils # 0.1 Basophils # 0.0 Nucleated Red Blood Cells # 0.0 Sodium Level 140 Potassium Level 3.8 Chloride Level 101 Carbon Dioxide Level 29 Anion Gap 14 Blood Urea Nitrogen 5 L Creatinine 0.60 Glucose Level 89 Calcium Level 7.7 L Phosphorus Level 2.5 Magnesium Level 2.0 Total Bilirubin 1.9 H Direct Bilirubin 1.10 #H Indirect Bilirubin 0.8 Aspartate Amino Transf (AST/SGOT) 117 H Alanine Aminotransferase (ALT/SGPT) 62 Alkaline Phosphatase 352 H Total Protein 5.0 L Albumin 2.1 L Globulin 2.90 Albumin/Globulin Ratio 0.72 Ammonia 30 # Medications Medications Current Medications Ondansetron HCl (Zofran Inj) 4 mg Q6H PRN IV NAUSEA AND/OR VOMITING; Start at 11:00 Acetaminophen/ Hydrocodone Bitart ([place] (5/325)) 1 tab Q6H PRN PO MODERATE PAIN LEVEL 4-6; Start 02/10/17 at 11:00 Morphine Sulfate (morphine) 2 mg Q4H PRN IV SEVERE PAIN LEVEL 7-10 Last administered on 02/11/17 23:23; Admin Dose 2 MG; Start 02/10/17 at 11:00 Pantoprazole (Protonix Iv) 40 mg BID@06,18 IV Last administered on 02/13/17 05 :16; Admin Dose 40 MG; Start 02/10/17 at 18:00 Furosemide (Lasix) 40 mg DAILY PO Last administered on 02/13/17 09:34; Admin Dose 40 MG; Start 02/11/17 at 09:00 Montelukast Sodium (Singulair) 10 mg QHS PO Last administered on 02/12/17 20: 36; Admin Dose 10 MG; Start 02/10/17 at 21:00 Propranolol HCl (Inderal) 20 mg DAILY PO Last administered on 02/13/17 09:34; Admin Dose 20 MG; Start 02/11/17 at 09:00 Spironolactone (Aldactone) 25 mg DAILY PO Last administered on 02/13/17 09:34 ; Admin Dose 25 MG; Start 02/11/17 at 09:00 Ursodiol (Actigall) 300 mg QPM PO Last administered on 02/12/17 20:36; Admin Dose 300 MG; Start 02/10/17 at 21:00 Lactulose (Enulose) 20 gm Q8 PO Last administered on 02/13/17 05:16; Admin Dose 20 GM; Start 02/12/17 at 11:30 HARISH BLACKWOOD MD Feb 13, 2017 12:00
== END 2017-02-13 14:33 | disposition home or self-care (01) | DRG 369 ==
LOC: E/R 04:51 → MS3 07:35 → PP2 20:16
PROVIDERS: ADMIT Family Medicine; ATTEND Family Medicine
PROC: 30233N1 Transfusion of Nonautologous Red Blood Cells into Peripheral Vein, Percutaneous Approach (ICD-10-PCS; 2017-02-10)
PROC: 0DB68ZX Excision of Stomach, Via Natural or Artificial Opening Endoscopic, Diagnostic (ICD-10-PCS; principal; 2017-02-12)
DX: I85.00 Esophageal varices without bleeding (principal); D62 Acute posthemorrhagic anemia; D61.818 Other pancytopenia; D68.9 Coagulation defect, unspecified; R18.8 Other ascites; K76.6 Portal hypertension; K92.2 Gastrointestinal hemorrhage, unspecified; K92.1 Melena; E11.9 Type 2 diabetes mellitus without complications; K74.60 Unspecified cirrhosis of liver; K29.70 Gastritis, unspecified, without bleeding; E80.6 Other disorders of bilirubin metabolism
CPT/HCPCS: 36415; 36430; 80053; 80061; 81001; 81003; 82140; 82150; 82945; 83036; 83615; 83690; 83735; 84100; 84157; 84439; 84443; 85025; 85610; 85730; 86850; 86870; 86900; 86901; 86902; 86920; 87070; 87086; 87102; 87116; 88305; 88312; 89050; 96374; 96375; 96376; C9113; J2270; J2405; J3475; J7040; P9011; P9016

== ENCOUNTER 2017-03-15 10:49 | Inpatient (IN) | END 2017-03-16 23:28 | disposition home or self-care (01) | DRG 433 | DX: K74.60 Unspecified cirrhosis of liver (principal); E87.1 Hypo-osmolality and hyponatremia; K72.90 Hepatic failure, unspecified without coma; D61.818 Other pancytopenia; K76.6 Portal hypertension; D49.0 Neoplasm of unspecified behavior of digestive system; D63.8 Anemia in other chronic diseases classified elsewhere; Z90.49 Acquired absence of other specified parts of digestive tract ==

== ENCOUNTER 2017-03-21 10:57 | Emergency (ER) | payer OTHER ==
[~2017-03-21] VITALS: Ht 160 cm; Wt 61.5 kg
[~2017-03-21 10:57] MED LIST changes: +FURO40TA4 PO; +LACT20SO12 PO; -OMEP40CA6 PO; +PANT40TA3 PO
[2017-03-21 11:03] VITALS: Ht 160 cm; Wt 61.5 kg
--- NOTE | 2017-03-21 12:48 | RADRPT ---
PROCEDURE: XR Chest. CLINICAL INDICATION: Left rib pain TECHNIQUE: Single frontal view of the chest was obtained COMPARISON: None FINDINGS: No pleural effusion or pneumothorax. No consolidation. Normal cardiomediastinal silhouette. No acute osseous abnormality. IMPRESSION: No acute cardiopulmonary disease. RPTAT: EE Yari Winters Physician Date Time Electronically viewed and signed by Yari Winters Physician on 03/21/2017 12:48 /
--- NOTE | 2017-03-21 13:10 | RADRPT ---
PROCEDURE: XR Left Ribs and chest CLINICAL INDICATION: Left rib pain due to blunt trauma TECHNIQUE: Multiple oblique views of the left ribs were obtained. A single chest radiograph was al so obtained. The images were reviewed on a PACS workstation. COMPARISON: Previous chest and eighth 15 20:17 FINDINGS: Cardiovascular structures: The cardiovascular silhouette appears unremarkable. Lung patino: The lung patino are clear.. Pleural spaces: No pneumothorax or pleural fluid accumulation is evident. Osseous structures: The visualized left ribs and remaining osseous structures appear intact. IMPRESSION: 1. No left rib fracture or destruction is identified. 2. Stable and unremarkable chest. Physician Tushar Date Time Electronically viewed and signed by Physician Tushar on 03/21/2017 13:10 /
--- NOTE | 2017-03-21 13:26 | ERD ---
ER Documentation Chief Complaint Date/Time DATE: 03/21/17 TIME: 13:24 Chief Complaint LEFT RIB PAIN SINCE LAST NIGHT, HX LIVER CIRRHOSIS HPI 37-year-old female patient with a past medical history of liver cirrhosis, encephalopathy, liver tumor, status post cholecystectomy since the ED complaining of a left rib contusion that occurred earlier today after her sister accidentally hit her head onto her left rib region. States that the sister was carrying her son and accidentally hit the left portion of her ribs when they fell backwards. Reports that it is a sharp pain and rates it a 7 out of 10. States that this occurred about 12 AM this morning. Reports that since patient's and expirations exacerbate the pain. Denies any shortness of breath, wheezing, abdominal pain, nausea, vomiting, weakness, numbness or tingling. ROS All systems reviewed and are negative except as per history of present illness. Medications Home Meds Active Scripts Pantoprazole* (Protonix*) 40 Mg Tablet.dr, 40 MG PO BID, #60 TAB Prov:ARACELI FRANKLIN [employer]SEED OIL REFINER 02/13/17 Lactulose* (Cephulac*) 20 Gm/30 Ml Soln, 20 GM PO Q8 for 30 Days, #1 BOTTLE Prov:ARACELI FRANKLIN [employer]SEED OIL REFINER 02/13/17 Reported Medications Spironolactone* (Spironolactone*) 100 Mg Tablet, 100 MG PO DAILY, TAB 03/22/17 Furosemide* (Furosemide*) 40 Mg Tablet, 40 MG PO DAILY, TAB 02/10/17 Obeticholic Acid (Ocaliva) 5 Mg Tablet, 5 MG PO DAILY, TAB 02/10/17 Montelukast Sodium* (Montelukast Sodium*) 10 Mg Tablet, 10 MG PO QHS, #30 TAB 10/13/15 Propranolol Hcl* (Propranolol Hcl*) 20 Mg Tablet, 20 MG PO DAILY, TAB 10/13/15 Ursodiol* (Ursodiol*) 300 Mg Capsule, 300 MG PO QPM, CAP 10/13/15 Discontinued Reported Medications Spironolactone* (Aldactone*) 25 Mg Tablet, 25 MG PO DAILY, #30 TAB 10/13/15 Allergies Allergies: Coded Allergies: No Known Drug Allergies (Unverified Allergy, Unknown, 03/15/17) PMhx/Soc History of Surgery: Yes (Cholecystectomy, Liver Biopsy, (2006), Abd Sx) Anesthesia Reaction: Yes (Difficulty breathing under anesthesia) Hx Neurological Disorder: No Hx Respiratory Disorders: No Hx Cardiac Disorders: No Hx Psychiatric Problems: No Hx Miscellaneous Medical Probl: No (Denies) Hx Alcohol Use: No Hx Substance Use: No Hx Tobacco Use: No Physical Exam Vitals Vital Signs Date Time Temp Pulse Resp B/P Pulse Ox O2 Delivery O2 Flow Rate FiO2 03/21/17 11:03 97.6 81 18 106/61 100 Physical Exam Const: [id number], well-nourished. In no acute distress. Head: Atraumatic, normocephalic Eyes: Normal Conjunctiva without injection. No purulent discharge. PERRL. EOMI ENT: Normal external ear. Ear canal without erythema. Tympanic membrane pearly chery without effusion or bulging. Nasal canal clear with normal turbinates. Moist oropharynx without tonsillar exudates. Non-erythematous pharynx. Uvula midline. No drooling. No trismus. Neck: Full range of motion. No meningismus. No cervical lymphadenopathy. Resp: Clear to auscultation bilaterally. No wheezing, rhonchi, rales, or crackles. No accessory muscle use. No retractions. Cardio: Regular rate and rhythm. No murmurs, rubs or gallops. Chest: No ecchymosis noted. Tenderness palpation of the left rib region. No erythema or edema. Abd: Soft, non tender, non distended. Normal bowel sounds. No palpable masses. No rebound tenderness. No guarding. Skin: No petechiae or rashes Back: No midline tenderness. No CVA tenderness. Ext: No cyanosis, or edema. Neur: Awake and alert. Psych: Normal Mood and Affect Procedures/MDM This is a 37-year-old female patient presents the ED complaining of left rib pain that started last night. Patient is afebrile and nontoxic-appearing. Patient is normal vital signs. A chest x-ray, left rib x-ray was ordered to further evaluate patient. PROCEDURE: XR Chest. CLINICAL INDICATION: Left rib pain TECHNIQUE: Single frontal view of the chest was obtained COMPARISON: None FINDINGS: No pleural effusion or pneumothorax. No consolidation. Normal cardiomediastinal silhouette. No acute osseous abnormality. IMPRESSION: No acute cardiopulmonary disease. PROCEDURE: XR Left Ribs and chest CLINICAL INDICATION: Left rib pain due to blunt trauma TECHNIQUE: Multiple oblique views of the left ribs were obtained. A single chest radiograph was also obtained. The images were reviewed on a PACS workstation. COMPARISON: Previous chest and eighth 15 20:17 FINDINGS: Cardiovascular structures: The cardiovascular silhouette appears unremarkable. Lung patino: The lung patino are clear.. Pleural spaces: No pneumothorax or pleural fluid accumulation is evident. Osseous structures: The visualized left ribs and remaining osseous structures appear intact. IMPRESSION: 1. No left rib fracture or destruction is identified. 2. Stable and unremarkable chest. Patient likely has a left rib contusion vs chest wall pain. Low suspicion for rib fractures, acute myocardial infarction, pneumothorax, pneumonia, cardiac tamponade, pulmonary embolism, pleural effusion, AAA, aortic dissection, Boerhaave's syndrome, cardiac dysrhythmias,meningitis, intracranial bleed, seizure, stroke, TIA or other emergent conditions. Follow up with primary care physician in 1-2 days. Instructed patient to return to the ED sooner for any worsening symptoms. Patient's questions were answered. Patient understood and agreed with discharge plan. Patient discharged stable. Departure Diagnosis: Primary Impression: Rib injury Condition: Stable Patient Instructions: Rib Contusion Referrals: DANIEL MIRELES (PCP) [facility] YOU HAVE RECEIVED A MEDICAL SCREENING EXAM AND THE RESULTS INDICATE THAT YOU DO NOT HAVE A CONDITION THAT REQUIRES URGENT TREATMENT IN THE EMERGENCY DEPARTMENT. FURTHER EVALUATION AND TREATMENT OF YOUR CONDITION CAN WAIT UNTIL YOU ARE SEEN IN YOUR DOCTORS OFFICE WITHIN THE NEXT 1-2 DAYS. IT IS YOUR RESPONSIBILITY TO MAKE AN APPOINTMENT FOR FOLOW-UP CARE. IF YOU HAVE A PRIMARY DOCTOR --you should call your primary doctor and schedule an appointment IF YOU DO NOT HAVE A PRIMARY DOCTOR YOU CAN CALL OUR PHYSICIAN REFERRAL HOTLINE AT IF YOU CAN NOT AFFORD TO SEE A PHYSICIAN YOU CAN CHOSE FROM THE FOLLOWING [facility] [address] [facility] [address] [facility] [address] [facility] [address] [facility] [address] [facility]. [facility] [address] [facility]. [facility] YOU HAVE RECEIVED A MEDICAL SCREENING EXAM AND THE RESULTS INDICATE THAT YOU DO NOT HAVE A CONDITION THAT REQUIRES URGENT TREATMENT IN THE EMERGENCY DEPARTMENT. FURTHER EVALUATION AND TREATMENT OF YOUR CONDITION CAN WAIT UNTIL YOU ARE SEEN IN YOUR DOCTORS OFFICE WITHIN THE NEXT 1-2 DAYS. IT IS YOUR RESPONSIBILITY TO MAKE AN APPOINTMENT FOR FOLOW-UP CARE. IF YOU HAVE A PRIMARY DOCTOR --you should call your primary doctor and schedule and appointment IF YOU DO NOT HAVE A PRIMARY DOCTOR YOU CAN CALL OUR PHYSICIAN REFERRAL HOTLINE AT . IF YOU CAN NOT AFFORD TO SEE A PHYSICIAN YOU CAN CHOSE FROM THE FOLLOWING [facility] INSTITUTIONS: [facility] [address] [place] [address] [facility] [address] [place], [place] [id number] [place] [address] + [facility] [address] [place] [address] [facility]CIALTIES Additional Instructions: Llame al doctor MAANA y kwame charlie DREW PARA DENTRO DE 1-2 LANG.Dgale a la secretaria que nosotros le instruimos hacer esta drew.Avise o llame si elder condicin se empeora antes de la drew. Regresa aqui si peor o no mejor. KRZYSZTOF GALICIA PA-C Mar 21, 2017 13:26
[2017-03-21 13:32] VITALS: BP 110/79; PULSE 83; RESP 18; TEMP 98
[2017-03-22] MEDS ORDERED: SPIR100T31 PO (15:49)
== END 2017-03-21 13:32 | disposition home or self-care (01) ==
LOC: FTE 10:57
DX: S20.219A Contusion of unspecified front wall of thorax, initial encounter (principal); W51.XXXA Accidental striking against or bumped into by another person, initial encounter; Y92.9 Unspecified place or not applicable
CPT/HCPCS: 71010; 71100; Z7502

== ENCOUNTER 2017-03-22 15:33 | Outpatient (CLI) | payer OTHER ==
[~2017-03-22] VITALS: Ht 160 cm; Wt 61.8 kg
[~2017-03-22 15:33] MED LIST changes: +ALLERGY MED; +DOCU240C14 PO; +KEFLEX; +METAM PO; +OMEP40CA6 PO; +[UNRECOGNIZED DRUG - CODE]; +[UNRECOGNIZED DRUG - CODE]; +[UNRECOGNIZED DRUG - REMARK]
[2017-03-22] MEDS ORDERED: SPIR100T31 PO (15:49)
[2017-03-22 15:50] VITALS: BP 96/55; PULSE 81; RESP 16; Ht 160 cm; Wt 61.8 kg
--- NOTE | 2017-03-22 16:11 | PN ---
Date/Time of Note Date/Time of Note DATE: 03/22/17 TIME: 16:06 Outpatient Progress Note Chief Complaint Encephalopathy/cirrhosis/liver tumor/pancytopenia HPI Encephalopathy/patient was recently admitted with encephalopathy, patient on lactulose, patient awake and alert, Cirrhosis/patient has cirrhosis of liver, patient still has jaundice, no hematemesis or melena, slight abdominal distention, no fever chill, Liver tumor/patient has elevated alpha-fetoprotein, and has liver tumor, patient is going for chemotherapy, Pancytopenia/no bruises or bleeding, Review of Systems Const: No Fever, no chills, slight Wt. loss, no Fatigue, poor appetite, no diaphoresis. Eyes: No pain, no discharge, no redness, patient has jaundice, no foreign body. ENT: No pain, no bleeding, no congestion, no sore throat, no dysphagia, no discharge or rhinitis. Lymph: No adenopathy, no tender nodes, no mass, Resp: No SOB, no cough, no sputum, no wheezing, no chest pain. CV: No chest pain, no palpitaions, no BLOOD, no PND, no edema. GI: Normal appetite, no pain, no nausea, no vomiting, no diarrhea, no blood, no constipation. Patient has abdominal distention, slight ascites, : No frequency, no urgency, no dysuria, no hematuria, no flank pain, no discharge, no bleeding. Musc: No back pain, no neck pain, no knee pain, no restricted ROM. Skin: No rash, no skin lesions, no erythema, no laceration, no bruising, no pruritus. Neuro: No KLEIN, no dizziness, no syncope, no confusion, patient awake and alert, no seizure, no focal-weakness. Endo: No polyuria, no polydypsia, no dry-skin, no temp-intolerance. Psych: No hallucinations, no depression, no anxiety, no suicidal ideation. Ext: No edema, no pain, no ulcer, no weakness. Physical Exam Vital Signs Date Time Temp Pulse Resp B/P Pulse Ox O2 Delivery O2 Flow Rate FiO2 03/22/17 15:50 98.1 81 16 96/55 100 Room Air General Appearance: A 37 year-old female who appears well-developed, well- nourished, in no acute distress. HEENT: Head normocephalic, atraumatic. Pupils equal, round, reactive to light and accommodate. Sclerae are moderately jaundice. Nasal turbinates pink without erythema or nasal discharge. Mucous membranes pink and moist without lesions. Oropharynx clear without any exudate or discharge. NECK: Supple. Trachea midline, No thyromegaly, No cervical lymphadenopathy, No mass, No carotid bruits, No JVD, Carotid pulses 2+ bilaterally. PULMONARY: Clear to auscultaion bilaterally, No retractions, Chest expansion symmetric bilaterally, no rales, no ronchi, no dulness on percussion. CARDIAC: Normal SI and S2, Regular rate and rythm, no murmur, gallop, or rub. GASTROINTESTINAL: Abdomen is soft, non-tender, Non Rigid, abdominal distention ascites present, positive bowel sounds x4 quadrants, Liver normal. SKIN: Warm, dry, no rash, no bruise, no echmosis. EXTREMITIES: Bilateral lower extremities normal, no edema, no phlabitus, pulse palpable, no contracture. MUSCULOSKELETAL: Spine Normal, Non-tender, Normal range of motion, No swelling, no deformity, no clubbing, or cyanosis, the patient has no edema to bilateral lower extremities, dorsalis pedis pulses palpable bilaterally. NEUROLOGIC: The patient is awake, alert, oriented, responding to yes/no questions appropriately, moving all extremities, cranial nerve intact, normal strenght, normal power, normal coordination, normal gait. Allergies Coded Allergies: No Known Drug Allergies (Unverified Allergy, Unknown, 03/15/17) PMH No change Social Hx No change Family Hx No change Patient History: Cirrhosis of liver G8 SIBLING FH: cirrhosis Assessment/Plan Impression Encephalopathy/cirrhosis/hepatoma/pancytopenia Hyponatremia/ascites/ Plan Patient education done about cirrhosis, patient explained the patient get confused to call her primary care physician, and make an appointment, Patient continued to use lactulose, patient is running out of lactulose, will refill, a prescription given to the patient, Patient may need serum ammonia level, discussed with the patient, Patient to follow with the primary care physician and frozen yogurt maker on regular basis, patient has all other medication, Patient very high risk for repeated admission, Medications Home Meds Active Scripts Pantoprazole* (Protonix*) 40 Mg Tablet., 40 MG PO BID, #60 TAB Prov:ARACELI FRANKLIN NP 02/13/17 Lactulose* (Cephulac*) 20 Gm/30 Ml Soln, 20 GM PO Q8 for 30 Days, #1 BOTTLE Prov:ARACELI FRANKLIN RESTAURANT DELIVERY DRIVER 02/13/17 Reported Medications Spironolactone* (Spironolactone*) 100 Mg Tablet, 100 MG PO DAILY, TAB 03/22/17 Furosemide* (Furosemide*) 40 Mg Tablet, 40 MG PO DAILY, TAB 02/10/17 Obeticholic Acid (Ocaliva) 5 Mg Tablet, 5 MG PO DAILY, TAB 02/10/17 Montelukast Sodium* (Montelukast Sodium*) 10 Mg Tablet, 10 MG PO QHS, #30 TAB 10/13/15 Propranolol Hcl* (Propranolol Hcl*) 20 Mg Tablet, 20 MG PO DAILY, TAB 10/13/15 Ursodiol* (Ursodiol*) 300 Mg Capsule, 300 MG PO QPM, CAP 10/13/15 Discontinued Reported Medications Spironolactone* (Aldactone*) 25 Mg Tablet, 25 MG PO DAILY, #30 TAB 10/13/15 RHIANNA BELL MD Mar 22, 2017 16:11
== END 2017-03-22 16:48 | disposition home or self-care (01) ==
LOC: DCC 15:33
PROVIDERS: ATTEND Internal Medicine
DX: D61.818 Other pancytopenia (principal)
CPT/HCPCS: G0463

== ENCOUNTER 2017-04-05 14:26 | Outpatient (CLI) | payer OTHER ==
[~2017-04-05] VITALS: Ht 160 cm; Wt 61.8 kg
[~2017-04-05 14:26] MED LIST changes: -ALLERGY MED; -DOCU240C14 PO; -KEFLEX; -METAM PO; -OMEP40CA6 PO; +SPIR100T31 PO; -SPIR25TA PO; -[UNRECOGNIZED DRUG - CODE]; -[UNRECOGNIZED DRUG - CODE]; -[UNRECOGNIZED DRUG - REMARK]
[2017-04-05 14:28] VITALS: BP 99/55; PULSE 86; RESP 16; Ht 160 cm; Wt 61.8 kg
--- NOTE | 2017-04-05 15:17 | PN ---
Date/Time of Note Date/Time of Note DATE: 04/05/17 TIME: 15:13 Outpatient Progress Note Chief Complaint Cirrhosis/liver tumor/encephalopathy improved HPI Cirrhosis/patient has cirrhosis of liver, patient has bilateral ankle edema which is significantly improved, patient also has abdominal ascites, significantly improved, patient on lactulose, Liver tumor/no nausea vomiting, no abdominal pain, patient has elevated alpha- fetoprotein, and patient is going for chemotherapy, Encephalopathy/patient encephalopathy significantly improved, patient on lactulose, and patient has a excoriation of perianal area, and had rectal bleeding, patient is Anusol HC suppository, Review of Systems Const: No Fever, no chills, no Wt. loss, no Fatigue, slightly poor appetite, no diaphoresis. Eyes: No pain, no discharge, no redness, no visual change, no foreign body., Jaundice present, ENT: No pain, no bleeding, no congestion, no sore throat, no dysphagia, no discharge or rhinitis. Lymph: No adenopathy, no tender nodes, no lymphedema. Resp: No SOB, no cough, no sputum, no wheezing, no chest pain. CV: No chest pain, no palpitaions, no BLOOD, no PND, no edema. GI: Normal appetite, no pain, no nausea, no vomiting, no diarrhea, no blood, no constipation. Patient has diarrhea secondary to lactulose, : No frequency, no urgency, no dysuria, no hematuria, no flank pain, no discharge, no bleeding. Musc: No back pain, no neck pain, no knee pain, no restricted ROM. Skin: No rash, no skin lesions, no erythema, no laceration, no bruising, no pruritus. Neuro: No KLEIN, no dizziness, no syncope, no seizure, no focal-weakness. Endo: No polyuria, no polydypsia, no dry-skin, no temp-intolerance. Psych: No hallucinations, no depression, no anxiety, no suicidal ideation. Ext: Minimal ankle edema, no pain, no ulcer, no weakness. Physical Exam Vital Signs Date Time Temp Pulse Resp B/P Pulse Ox O2 Delivery O2 Flow Rate FiO2 04/05/17 14:28 98.3 86 16 99/55 100 Room Air General Appearance: A 37 year-old female who appears well-developed, well- nourished, in no acute distress. HEENT: Head normocephalic, atraumatic. Pupils equal, round, reactive to light and accommodate. Sclerae are bilateral eyes jaundice. Nasal turbinates pink without erythema or nasal discharge. Mucous membranes pink and moist without lesions. Oropharynx clear without any exudate or discharge. NECK: Supple. Trachea midline, No thyromegaly, No cervical lymphadenopathy, No mass, No carotid bruits, No JVD, Carotid pulses 2+ bilaterally. PULMONARY: Clear to auscultaion bilaterally, No retractions, Chest expansion symmetric bilaterally, no rales, no ronchi, no dulness on percussion. CARDIAC: Normal SI and S2, Regular rate and rythm, no murmur, gallop, or rub. GASTROINTESTINAL: Abdomen is soft, non-tender, Non Rigid, No distention, Positive bowel sounds x4 quadrants, Liver normal, mild ascites,. SKIN: Warm, dry, no rash, no bruise, no echmosis. EXTREMITIES: Bilateral lower extremities trace edema, no phlabitus, pulse palpable, no contracture. MUSCULOSKELETAL: Spine Normal, Non-tender, Normal range of motion, No swelling, no deformity, no clubbing, or cyanosis, the patient has no edema to bilateral lower extremities, dorsalis pedis pulses palpable bilaterally. NEUROLOGIC: The patient is awake, alert, oriented, responding to yes/no questions appropriately, moving all extremities, cranial nerve intact, normal strenght, normal power, normal coordination, normal gait. Allergies Coded Allergies: No Known Drug Allergies (Unverified Allergy, Unknown, 03/15/17) PMH No change Social Hx No change Family Hx No change Patient History: Cirrhosis of liver G8 SIBLING FH: cirrhosis Assessment/Plan Impression Cirrhosis/liver tumor/encephalopathy improving Plan Patient has excoriation of perirectal area, patient advised to use hydrocortisone locally, patient also has Anusol SC suppository for rectal bleeding and discomfort, patient continued to follow that, Patient encouraged to follow with the primary care physician, Patient is running out of lactulose, will give 1 more point so patient can continue until patient sees the doctor, Patient encouraged to follow the primary care physician, call the ER a primary care physician any fever altered mental status, patient high risk for repeated admission, and complication, Medications Home Meds Active Scripts Pantoprazole* (Protonix*) 40 Mg Tablet., 40 MG PO BID, #60 TAB Prov:MACIDO,ARACELI MAT PACKER 02/13/17 Lactulose* (Cephulac*) 20 Gm/30 Ml Soln, 20 GM PO Q8 for 30 Days, #1 BOTTLE Prov:ARACELI FRANKLIN MAT PACKER 02/13/17 Reported Medications Spironolactone* (Spironolactone*) 100 Mg Tablet, 100 MG PO DAILY, TAB 03/22/17 Furosemide* (Furosemide*) 40 Mg Tablet, 40 MG PO DAILY, TAB 02/10/17 Obeticholic Acid (Ocaliva) 5 Mg Tablet, 5 MG PO DAILY, TAB 02/10/17 Montelukast Sodium* (Montelukast Sodium*) 10 Mg Tablet, 10 MG PO QHS, #30 TAB 10/13/15 Propranolol Hcl* (Propranolol Hcl*) 20 Mg Tablet, 20 MG PO DAILY, TAB 10/13/15 Ursodiol* (Ursodiol*) 300 Mg Capsule, 300 MG PO QPM, CAP 10/13/15 RHIANNA BELL MD Apr 05, 2017 15:17
== END 2017-04-05 17:00 | disposition home or self-care (01) ==
LOC: DCC 14:26
PROVIDERS: ATTEND Internal Medicine
DX: K74.60 Unspecified cirrhosis of liver (principal); G93.40 Encephalopathy, unspecified; D49.0 Neoplasm of unspecified behavior of digestive system

== ENCOUNTER 2017-04-09 16:26 | Emergency (ER) | payer OTHER ==
[~2017-04-09] VITALS: Ht 162.6 cm; Wt 52.0 kg
[~2017-04-09 16:26] MED LIST changes: +SPIR25TA PO
[2017-04-09 16:33] VITALS: Ht 162.6 cm; Wt 52.0 kg
[2017-04-09] MEDS ORDERED: MAGN400T28 PO (17:13)
[2017-04-09] MEDS ORDERED: LACT10SO36 PO (17:13)
[2017-04-09 17:14] LABS: ABNORMAL IP MESSAGE 1; HEMATOCRIT 21.2 % (37.0-47.0); MEAN CORPUSCULAR HEMOGLOBIN 26.1 pg (29.0-33.0); MEAN CORPUSCULAR HGB CONC 29.7 g/dl (32.0-37.0); MEAN PLATELET VOLUME 10.2 fl (7.4-10.4); PLATELET COUNT 68 10^3/UL (140-415); RED BLOOD COUNT 2.41 10^6/ul (4.20-5.40); RED CELL DISTRIBUTION WIDTH 17.4 % (11.5-14.5); WHITE BLOOD COUNT 4.6 10^3/ul (4.8-10.8)
[2017-04-09] MEDS ORDERED: PANT40TA4 PO (17:14)
[2017-04-09 17:19] LABS: POSITIVE DIFF @See below
[2017-04-09 17:22] LABS: HEMOGLOBIN 6.3 g/dl (12.0-16.0)
[2017-04-09 17:28] LABS: INR 1.38; PT RATIO 1.3
[2017-04-09] MEDS ORDERED: SOD CHLORIDE 0.9% 250 ML IV ONE (17:28)
[2017-04-09 17:34] LABS: ALANINE AMINOTRANSFERASE 57 IU/L (13-69); ALBUMIN 2.1 g/dl (3.3-4.9); ALBUMIN/GLOBULIN RATIO 0.67; ALKALINE PHOSPHATASE 438 IU/L (42-121); ANION GAP 6 (8-16); ASPARTATE AMINO TRANSFERASE 77 IU/L (15-46); BILIRUBIN,INDIRECT 0.8 mg/dl (0-1.1); BILIRUBIN,TOTAL 0.8 mg/dl (0.2-1.3); BLOOD UREA NITROGEN 7 mg/dl (7-20); CALCIUM 7.3 mg/dl (8.4-10.2); CARBON DIOXIDE 24 mmol/L (21-31); CHLORIDE 103 mmol/L (97-110); CREATININE 0.71 mg/dl (0.44-1.00); GLUCOSE 116 mg/dl (70-220); POTASSIUM 3.9 mmol/L (3.5-5.1); SODIUM 129 mmol/L (135-144); TOTAL PROTEIN 5.2 g/dl (6.1-8.1)
[2017-04-09 17:50] LABS: TROPONIN-I < 0.012 ng/ml (0.00-0.12)
--- NOTE | 2017-04-09 18:28 | ERA ---
ER Documentation Chief Complaint Date/Time DATE: 04/09/17 TIME: 18:22 Chief Complaint pt bib family with c/o low hbg<6 per PMD who called her , jaundice HPI This is a very pleasant 37-year-old female history of cirrhosis, likely malignancy who is on the transplant list and being arranged for possible chemotherapy. The patient has a history of chronic anemia. The patient was sent to the emergency room by her dehydration plant operator because of a hemoglobin around 6. She denies any hematemesis or melena. No history of esophageal varices. The patient has normal mentation and otherwise feels well. No other complaints are noted. ROS All systems reviewed and are negative except as per history of present illness. Medications Home Meds Reported Medications Pantoprazole* (Pantoprazole*) 40 Mg Tablet.dr, 40 MG PO AC BREAKFAST, TAB 04/09/17 Lactulose (Generlac) 10 Gm/15 Ml Solution, 10 GM PO TID 04/09/17 Magnesium Oxide* (Magnesium Oxide*) 400 Mg Tablet, 400 MG PO DAILY, TAB 04/09/17 Spironolactone* (Spironolactone*) 100 Mg Tablet, 150 MG PO DAILY, TAB 03/22/17 Furosemide* (Furosemide*) 40 Mg Tablet, 40 MG PO DAILY, TAB 02/10/17 Montelukast Sodium* (Montelukast Sodium*) 10 Mg Tablet, 10 MG PO QHS, #30 TAB 10/13/15 Propranolol Hcl* (Propranolol Hcl*) 20 Mg Tablet, 20 MG PO DAILY, TAB 10/13/15 Ursodiol* (Ursodiol*) 300 Mg Capsule, 300 MG PO QPM, CAP 10/13/15 Discontinued Reported Medications Obeticholic Acid (Ocaliva) 5 Mg Tablet, 5 MG PO DAILY, TAB 02/10/17 Discontinued Scripts Pantoprazole* (Protonix*) 40 Mg Tablet., 40 MG PO BID, #60 TAB Prov:ARACELI FRANKLIN LOCK MASTER 02/13/17 Lactulose* (Cephulac*) 20 Gm/30 Ml Soln, 20 GM PO Q8 for 30 Days, #1 BOTTLE Prov:ARACELI FRANKLIN LOCK MASTER 02/13/17 Allergies Allergies: Coded Allergies: No Known Drug Allergies (Unverified Allergy, Unknown, 04/09/17) PMhx/Soc History of Surgery: Yes (Cholecystectomy, Liver Biopsy, (2005), Abd Sx) Anesthesia Reaction: Yes (Difficulty breathing under anesthesia) Hx Neurological Disorder: No Hx Respiratory Disorders: No Hx Cardiac Disorders: No Hx Psychiatric Problems: No Hx Miscellaneous Medical Probl: No (Denies) Hx Alcohol Use: No Hx Substance Use: No Hx Tobacco Use: No Smoking Status: Never smoker FmHx Family History: No diabetes Physical Exam Vitals Vital Signs Date Time Temp Pulse Resp B/P Pulse Ox O2 Delivery O2 Flow Rate FiO2 04/09/17 16:33 98.0 56 18 105/55 97 Physical Exam General: Stigmata of cirrhosis, no distress Head: Normocephalic, atraumatic Eyes: Pupils equally reactive, EOM intact, slight conjunctival pallor ENT: Moist mucous membranes Neck: Supple, no lymphadenopathy Respiratory: Lungs clear bilaterally, no distress Cardiovascular: RRR, no murmurs, rubs, or gallops Abdominal: Soft, non-tender, non-distended, no peritoneal signs, no significant fluid wave : Deferred per patient request MSK: No edema, no unilateral swelling, 5/5 strength Neurologic: Alert and oriented, moving all extremities, normal speech, no focal weakness, no cerebellar signs Skin: No rash Psych: Normal mood Result Diagram: 04/09/17 1705 04/09/17 1705 Results 24 hrs Laboratory Tests Test 04/09/17 17:05 White Blood Count 4.610^3/ul Red Blood Count 2.4110^6/ul Hemoglobin 6.3g/dl Hematocrit 21.2% Mean Corpuscular Volume 88.0fl Mean Corpuscular Hemoglobin 26.1pg Mean Corpuscular Hemoglobin Concent 29.7g/dl Red Cell Distribution Width 17.4% Platelet Count 6810^3/UL Mean Platelet Volume 10.2fl Neutrophils % % Segmented Neutrophils % (Manual) 65% Lymphocytes % % Lymphocytes % (Manual) 25% Monocytes % % Monocytes % (Manual) 8% Eosinophils % % Eosinophils % (Manual) 1% Basophils % % Nucleated Red Blood Cells % 0.0/100WBC Neutrophils # (Manual) 10^3/ul Absolute Lymphocytes (Manual) 1.110^3/ul Lymphocytes # 1.210^3/ul Monocytes # 0.410^3/ul Absolute Monocytes (Manual) 0.310^3/ul Eosinophils # 0.010^3/ul Basophils # 0.010^3/ul Nucleated Red Blood Cells # 10^3/ul Polychromasia 1+ Prothrombin Time 17.0Sec Prothrombin Time Ratio 1.3 INR International Normalized Ratio 1.38 Activated Partial Thromboplast Time 28.0Sec Sodium Level 129mmol/L Potassium Level 3.9mmol/L Chloride Level 103mmol/L Carbon Dioxide Level 24mmol/L Anion Gap 6 Blood Urea Nitrogen 7mg/dl Creatinine 0.71mg/dl Glucose Level 116mg/dl Calcium Level 7.3mg/dl Total Bilirubin 0.8mg/dl Direct Bilirubin 0.00mg/dl Indirect Bilirubin 0.8mg/dl Aspartate Amino Transf (AST/SGOT) 77IU/L Alanine Aminotransferase (ALT/SGPT) 57IU/L Alkaline Phosphatase 438IU/L Troponin I < 0.012ng/ml Total Protein 5.2g/dl Albumin 2.1g/dl Globulin 3.10g/dl Albumin/Globulin Ratio 0.67 Current Medications Medications (Trade) Dose Ordered Sig/Maco Route PRN Reason Start Time Stop Time Status Last Admin Dose Admin Sodium Chloride 250 ml @ 0 mls/hr Q0M ONCE IV 04/09/17 17:28 04/09/17 17:30 DC Sodium Chloride (NS) 500 ml @ 500 mls/hr Q1H STAT IV 04/09/17 19:13 04/09/17 20:12 DC 04/09/17 19:25 Procedures/MDM EKG, MONITORS, & DIAGNOSTIC IMAGING: EKG: I reviewed and interpreted a 12-lead EKG. Rhythm: Normal sinus rhythm Ectopy: None Intervals: No abnormalities ST segments: No elevations or depressions T waves: No contiguous inversions LAB INTERPRETATION: Anemia with a hemoglobin of 6.3, her baseline based on electronic medical record review is around a half with most recent around 10 on 15 March during which time I believe she had a blood transfusion. Thrombocytopenia of 68 consistent with her baseline MEDICAL DECISION MAKING: The patient presents with anemia. She has a history of cirrhosis. The patient had a recent endoscopy approximately 1-1/2 months ago that showed no evidence of esophageal varices. She does not report any signs or symptoms concerning for acute blood loss. She thinks that maybe she had some bright red blood in her stool approximately 2-3 weeks ago but none since. She denies any hematemesis or melena. Again, the patient had a recent endoscopy that showed no evidence of esophageal varices. The patient does have a hemoglobin of 10.2 approximately 1 month ago but this was shortly after blood transfusion, her baseline seems to have around 8.5-9. The patient's hemoglobin is certainly decreased. However, the patient has no signs or symptoms concerning for ongoing or acute hemorrhage. She is hemodynamically stable and resting comfortably. She has normal sensorium. We discussed transfusion and possibility of inpatient hospitalization however the patient expressed interest in going home. I was able to reach out to the patient's dehydration plant operator Dr. Russo. We discussed the patient's case. He prefers hospitalization but feels that if the patient wants to go home is hemodynamically stable and received blood product in the emergency room that she can be safely followed up with her primary care physician first thing in a week for repeat hemoglobin and reevaluation. She should return to the emergency room for any times of blood loss or generalized weakness. He feels comfortable with the plan of care. I discussed with the patient and/or family the risks, benefits, alternatives of blood transfusion. This includes allergic reaction and infections including HIV and hepatitis. The patient and/or family were able to verbalize these risks , stated understanding. A document has been signed and placed in the chart. ER COURSE: The patient was typed and crossmatched and given 1 unit of packed red blood cells. She is resting comfortably and again remains asymptomatic. Her hemodynamics remained stable and based on the patient's goals of care the patient will be discharged with close primary care follow-up on Tuesday. She should return for any worsening symptoms, signs of fatigue, melena or bright red blood per rectum. The patient did have a transient drop in her blood pressure to the 80s but she does have cirrhosis and labile blood pressure is consistent with her baseline. She denies any change in her symptomatology. For this reason I did offer inpatient hospitalization but the patient still feels strongly about going home. The patient has had blood pressure ranging in the 90s-100 systolic and remains well-appearing. She has completed her blood transfusion and is ambulatory without orthostasis. The patient understands that she needs to follow-up with her primary care physician and understands return precautions. I kept the patient and/or family informed of laboratory and diagnostic imaging results throughout the emergency room course. DISPOSITION PLAN: We discussed follow up with the patient's primary care doctor within 24 to 48 hours as needed. We also discussed return to the emergency room for worsening symptoms or worsening condition. Outpatient referral: Hepatology, [facility] transplant team Departure Diagnosis: Primary Impression: Anemia Qualified Code: D64.9 - Anemia, unspecified type Additional Impressions: Pancytopenia History of cirrhosis Condition: Stable AMRITA RODGERS MD Apr 09, 2017 18:28
[2017-04-09 18:42] LABS: EOSINOPHILS % (M) 1 % (0.0-7.0); LYMPHOCYTES # 1.2 10^3/ul (0.8-2.9); MONOCYTE # 0.4 10^3/ul (0.3-0.9); MONOCYTES % (M) 8 % (0-11)
[2017-04-09 18:43] LABS: POLYCHROMASIA 1+ (0-0)
[2017-04-09] MEDS ORDERED: SOD CHLORIDE 0.9% 500 ML IV STA (19:13)
[2017-04-09 23:15] VITALS: BP 94/55; PULSE 79; RESP 16; TEMP 98.9
== END 2017-04-09 23:15 | disposition home or self-care (01) ==
LOC: E/R 16:26
DX: D64.9 Anemia, unspecified (principal); D61.818 Other pancytopenia; R17 Unspecified jaundice; Z87.19 Personal history of other diseases of the digestive system
CPT/HCPCS: 36415; 36430; 80053; 84484; 85025; 85610; 85730; 86850; 86870; 86900; 86901; 86920; 93005; J7040; P9016; Z7502

== ENCOUNTER 2017-04-28 21:07 | Inpatient (IN) | payer OTHER ==
[~2017-04-28] VITALS: Ht 160 cm; Wt 55.5 kg
[~2017-04-28 21:07] MED LIST changes: +LACT10SO36 PO; -LACT20SO12 PO; +MAGN400T28 PO; -OBET5TAB PO; -PANT40TA3 PO; +PANT40TA4 PO; -SPIR25TA PO
[2017-04-28 22:09] VITALS: TEMP 98.6
[2017-04-28] MEDS ORDERED: morphine 4 MG/ML VIAL IV STA (22:16)
[2017-04-28] MEDS ORDERED: ONDANSETRON 4 MG INJ IV STA (22:16)
[2017-04-28 22:41] LABS: ABNORMAL IP MESSAGE 1; HEMATOCRIT 22.3 % (37.0-47.0); MEAN CORPUSCULAR HEMOGLOBIN 25.2 pg (29.0-33.0); MEAN CORPUSCULAR HGB CONC 30.5 g/dl (32.0-37.0); MEAN CORPUSCULAR VOLUME 82.6 fl (82.0-101.0); PLATELET COUNT 52 10^3/UL (140-415); RED CELL DISTRIBUTION WIDTH 16.6 % (11.5-14.5); WHITE BLOOD COUNT 2.7 10^3/ul (4.8-10.8)
[2017-04-28 22:48] LABS: POSITIVE DIFF @See below
[2017-04-28 22:50] LABS: HEMOGLOBIN 6.8 g/dl (12.0-16.0)
[2017-04-28 22:56] LABS: INR 1.39; PROTIME 17.1 Sec (12.2-14.2); PT RATIO 1.3
[2017-04-28 22:57] LABS: PARTIAL THROMBOPLASTIN TIME 28.9 Sec (25.0-35.0)
[2017-04-28 22:59] LABS: ALBUMIN 2.6 g/dl (3.3-4.9); ALBUMIN/GLOBULIN RATIO 0.7; BILIRUBIN,INDIRECT 0.8 mg/dl (0-1.1); BILIRUBIN,TOTAL 0.8 mg/dl (0.2-1.3); CALCIUM 7.7 mg/dl (8.4-10.2); CREATININE 0.6 mg/dl (0.44-1.00); POTASSIUM 4.6 mmol/L (3.5-5.1); TOTAL PROTEIN 6.3 g/dl (6.1-8.1)
[2017-04-28 23:04] LABS: ADD UMIC YES; UR ASCORBIC ACID NEGATIVE (NEGATIVE); UR BACTERIA FEW /HPF (NONE SEEN); UR BILIRUBIN (Dip) NEGATIVE (NEGATIVE); UR BLOOD (Dip) 2+ mg/dL (NEGATIVE); UR CLARITY SLIGHTLY CLOUDY (CLEAR); UR COLOR YELLOW (YELLOW); UR GLUCOSE (Dip) NEGATIVE (NEGATIVE); UR KETONES (Dip) NEGATIVE (NEGATIVE); UR LEUKOCYTE ESTERASE (Dip) NEGATIVE Leu/ul (NEGATIVE); UR NITRITE (Dip) NEGATIVE (NEGATIVE); UR RBC 1 /HPF (0-5); UR SPECIFIC GRAVITY (Dip) 1.008 (1.003-1.030); UR SQUAMOUS EPITHELIAL CELL FEW /HPF (FEW); UR TOTAL PROTEIN (Dip) NEGATIVE (NEGATIVE); UR UROBILINOGEN (Dip) 1+ mg/dL (NEGATIVE)
[2017-04-28 23:14] LABS: PLATELET ESTIMATE DECREASED
[2017-04-28] MEDS ORDERED: SOD CHLORIDE 0.9% 250 ML IV ONE (23:18)
[2017-04-28 23:19] LABS: EOSINOPHILS % (M) 1 % (0.0-7.0); LYMPHOCYTES # 0.5 10^3/ul (0.8-2.9); MONOCYTE # 0.3 10^3/ul (0.3-0.9); MONOCYTES % (M) 12 % (0-11)
--- NOTE | 2017-04-28 23:29 | ERA ---
ER Documentation Chief Complaint Date/Time DATE: 04/28/17 TIME: 23:27 Chief Complaint abnormal lab , hgb-7.2, hx anemia HPI This is a 37-year-old female with a history of liver cirrhosis who presents to the emergency room for evaluation of generalized weakness. This patient was seen by her primary physician, Dr. Jon who obtain lab work and told the patient she has a low hemoglobin of approximately 7.2. The patient has been denying any black stools. She states that she has been feeling weak and came to the emergency room for evaluation. ROS All systems reviewed and are negative except as per history of present illness. Medications Home Meds Reported Medications Pantoprazole* (Pantoprazole*) 40 Mg Tablet.dr, 40 MG PO AC BREAKFAST, TAB 04/09/17 Lactulose (Generlac) 10 Gm/15 Ml Solution, 10 GM PO TID 04/09/17 Magnesium Oxide* (Magnesium Oxide*) 400 Mg Tablet, 400 MG PO DAILY, TAB 04/09/17 Spironolactone* (Spironolactone*) 100 Mg Tablet, 150 MG PO DAILY, TAB 03/22/17 Furosemide* (Furosemide*) 40 Mg Tablet, 40 MG PO DAILY, TAB 02/10/17 Montelukast Sodium* (Montelukast Sodium*) 10 Mg Tablet, 10 MG PO QHS, #30 TAB 10/13/15 Propranolol Hcl* (Propranolol Hcl*) 20 Mg Tablet, 20 MG PO DAILY, TAB 10/13/15 Ursodiol* (Ursodiol*) 300 Mg Capsule, 300 MG PO QPM, CAP 10/13/15 Allergies Allergies: Coded Allergies: No Known Drug Allergies (Unverified Allergy, Unknown, 04/09/17) PMhx/Soc History of Surgery: Yes (Cholecystectomy, Liver Biopsy, (2005), Abd Sx) Anesthesia Reaction: Yes (Difficulty breathing under anesthesia) Hx Neurological Disorder: No Hx Respiratory Disorders: No Hx Cardiac Disorders: No Hx Psychiatric Problems: No Hx Miscellaneous Medical Probl: No (Liver CA, Cirrhosis) Hx Alcohol Use: No Hx Substance Use: No Hx Tobacco Use: No Smoking Status: Never smoker Physical Exam Vitals Vital Signs Date Time Temp Pulse Resp B/P Pulse Ox O2 Delivery O2 Flow Rate FiO2 04/28/17 22:09 98.6 74 20 105/61 100 Room Air 04/28/17 21:09 98.6 75 20 104/56 100 Physical Exam INITIAL VITAL SIGNS: Reviewed by me GENERAL: The patient is well developed and appropriate for usual state of health in no apparent distress HEENT: Dry mucous membranes, pupils equal, round, and reactive to light. EOMI. There is no scleral icterus. NECK: C-spine is soft and supple, there is no meningismus. There is no cervical lymphadenopathy. LUNGS: Clear to auscultation bilaterally. There are no rales, wheezes or rhonchi. HEART: Regular rate and rhythm, no murmurs, clicks, rubs or gallops. ABDOMEN: Soft, non-tender, non-distended. There are bowel sounds in all four quadrants. No rebound or guarding. EXTREMITIES: There is no peripheral cyanosis or edema. No focal swelling or erythema. NEUROLOGICAL: The patient moves all four extremities with 5/5 strength. Cranial nerves II - XII are intact. Normal gait. Alert and oriented SKIN: There is no apparent rash or petechiae. HEME/LYMPHATIC: There is no evidence of excessive bruising or lymphedema. PSYCHIATRIC: The patient does not appear anxious or depressed. Result Diagram: 04/28/17222504/28/172225 Results 24 hrs Laboratory Tests Test 04/28/17 22:20 04/28/17 22:26 Urine Color YELLOW Urine Clarity SLIGHTLY CLOUDY Urine pH 7.0 Urine Specific [place] 1.008 Urine Ketones NEGATIVEmg/dL Urine Nitrite NEGATIVEmg/dL Urine Bilirubin NEGATIVEmg/dL Urine Urobilinogen 1+mg/dL Urine Leukocyte Esterase NEGATIVELeu/ul Urine Microscopic RBC 1/HPF Urine Microscopic WBC 1/HPF Urine Squamous Epithelial Cells FEW/HPF Urine Bacteria FEW/HPF Urine Hemoglobin 2+mg/dL Urine Glucose NEGATIVEmg/dL Urine Total Protein NEGATIVEmg/dl White Blood Count 2.710^3/ul Red Blood Count 2.7010^6/ul Hemoglobin 6.8g/dl Hematocrit 22.3% Mean Corpuscular Volume 82.6fl Mean Corpuscular Hemoglobin 25.2pg Mean Corpuscular Hemoglobin Concent 30.5g/dl Red Cell Distribution Width 16.6% Platelet Count 5210^3/UL Mean Platelet Volume 10.0fl Neutrophils % % Segmented Neutrophils % (Manual) 67% Band Neutrophils % (Manual) 1% Lymphocytes % % Lymphocytes % (Manual) 19% Monocytes % % Monocytes % (Manual) 12% Eosinophils % % Eosinophils % (Manual) 1% Basophils % % Nucleated Red Blood Cells % 0.0/100WBC Neutrophils # 10^3/ul Neutrophils # (Manual) 1.810^3/ul Band Neutrophils # 0.010^3/ul Absolute Lymphocytes (Manual) Pending Lymphocytes # 0.510^3/ul Monocytes # 0.310^3/ul Absolute Monocytes (Manual) Pending Eosinophils # 0.010^3/ul Basophils # 10^3/ul Nucleated Red Blood Cells # 10^3/ul Platelet Estimate DECREASED Prothrombin Time 17.1Sec Prothrombin Time Ratio 1.3 INR International Normalized Ratio 1.39 Activated Partial Thromboplast Time 28.9Sec Sodium Level 130mmol/L Potassium Level 4.6mmol/L Chloride Level 102mmol/L Carbon Dioxide Level 24mmol/L Anion Gap 9 Blood Urea Nitrogen 9mg/dl Creatinine 0.60mg/dl Glucose Level 101mg/dl Calcium Level 7.7mg/dl Total Bilirubin 0.8mg/dl Direct Bilirubin 0.00mg/dl Indirect Bilirubin 0.8mg/dl Aspartate Amino Transf (AST/SGOT) 64IU/L Alanine Aminotransferase (ALT/SGPT) 51IU/L Alkaline Phosphatase 339IU/L Ammonia 69umol/l Troponin I < 0.012ng/ml Total Protein 6.3g/dl Albumin 2.6g/dl Globulin 3.70g/dl Albumin/Globulin Ratio 0.70 Lipase 358U/L Current Medications Medications (Trade) Dose Ordered Sig/Maco Route PRN Reason Start Time Stop Time Status Last Admin Dose Admin Morphine Sulfate (morphine) 4 mg ONCE STAT IV 04/28/17 22:16 04/28/17 22:18 DC Ondansetron HCl 4 mg 4 mg ONCE STAT IV 04/28/17 22:16 04/28/17 22:18 DC 04/28/17 22:40 Sodium Chloride (NS) 250 ml @ 0 mls/hr Q0M ONCE IV 04/28/17 23:18 04/28/17 23:20 DC Procedures/MDM Chest X-ray 1V Interpreted by me: Soft Tissue: No acute abnormalities Bones: No acute abnormalities Mediastinum/Cardiac Silhouette/Lungs: [No acute abnormalities] This 37-year-old female presents to the emergency room for evaluation of low hemoglobin. When I evaluated this patient she was hemodynamically stable however I did obtain blood work which does demonstrate a hemoglobin of 6.8. This patient has pancytopenia on her CBC, and slightly elevated ammonia level. The patient is alert oriented to person place and time at this time with no signs of hepatic encephalopathy. This patient will be transfused 2 units of packed red blood cells. I have attempted to contact her primary physician, Dr. Jon however I have been unsuccessful. I advised the patient and the patient' s family members are present they can attempt to contact her primary care physician and I will be more than happy to speak with him in regards to her disposition. The patient and patient's family member are okay with her plan of care for admission at this time and the patient will be admitted under the care of her panel physician Dr. Cunningham Critical Care: Excluding all billable procedures Time: 33 minutes Treatments/Evaluations: Close monitoring and treatment of unstable vital signs, cardiorespiratory, and neurologic status, while maintaining tight balance of fluid, respiratory, and cardiac interventions. Departure Diagnosis: Primary Impression: Anemia Additional Impression: Pancytopenia Condition: Stable TAY ARANDA DO Apr 28, 2017 23:29
[2017-04-28] MEDS ORDERED: ACETAMINOPHEN 325 MG TAB PO PRN (23:30)
[2017-04-28] MEDS ORDERED: ONDANSETRON 4 MG INJ IV PRN (23:30)
[2017-04-29] VITALS (10 sets, daily range): BP systolic 92–109; BP diastolic 51–58; PULSE 72–84; RESP 16–23; Ht 160 cm; Wt 55.5 kg
--- NOTE | 2017-04-29 00:27 | RADRPT ---
PROCEDURE: XR Chest. CLINICAL INDICATION: Chest pain. TECHNIQUE: Portable AP view of the chest was obtained. COMPARISON: 03/21/2017 FINDINGS: The cardiomediastinal silhouette is within normal limits. The lungs are clear. There is no evidenc e for pleural effusion, pneumothorax or pulmonary vascular congestion. The osseous structures are i ntact with no evidence for acute abnormality. RPTAT:HJJR IMPRESSION: No evidence for acute intrathoracic pathology or interval change from 03/21/2017. Physician Meena Date Time Electronically viewed and signed by Mike Russo Physician on 04/29/2017 00:26 /
[2017-04-29] MEDS ORDERED: ALBUTEROL/IPRATROPIUM (NEB) 3 ML AMP HHN PRN (02:00)
[2017-04-29] MEDS ORDERED: NACL 0.9% 3 ML SYG IV SCH (02:00)
[2017-04-29] MEDS ORDERED: MAGNESIUM HYDROXIDE 30ML CUP PO PRN (02:00)
[2017-04-29] MEDS ORDERED: morphine 2 MG INJ IV PRN (02:00)
[2017-04-29] MEDS ORDERED: ONDANSETRON 4 MG INJ IV PRN ×2 (02:00→18:30)
[2017-04-29] MEDS ORDERED: OBET5TAB PO (02:23)
[2017-04-29] MEDS: PANTOPRAZOLE 40 MG INJ IV SCH (05:11)
--- NOTE | 2017-04-29 05:58 | HP ---
Date/Time of Note Date/Time of Note DATE: 04/29/17 TIME: 05:49 Assessment/Plan VTE Prophylaxis VTE Prophylaxis Intervention: SCD's Lines/Catheters IV Catheter Type (from Nrsg): Peripheral IV Assessment/Plan Assessment/Plan 1. Pancytopenia, with recurrent anemia -Hemoglobin 6.8. Last transfusion about 3 weeks ago for a hemoglobin of 6.3 -Currently receiving blood transfusion -Monitor H&H -GI consult 2. Cryptogenic liver cancer -Currently in the liver transplant list at [facility] 3. Pancreatitis -Patient has significantly tender abdomen -Keep n.p.o. -Provide pain meds as needed HPI/ROS Admit Date/Time Admit Date/Time Apr 28, 2017 at 23:26 Hx of Present Illness This is a 37-year-old female with a history of cryptogenic liver cancer, hepatic encephalopathy, pancytopenia who presented to the emergency department for anemia. She was cold and told from a clinic she has a low hemoglobin and as such she came to the ER for evaluation. Patient was admitted here recently as well as had recent ER visits for similar. She has been transfused before last being about 3 weeks ago. She complains of dizziness/lightheadedness and generalized weakness. She denied hematemesis, dark stool or bright red blood per rectum. Patient had an EGD in December of this year that showed Mild gastritis versus portal hypertensive gastropathy, with no evidence of varices. Patient is currently in the liver transplant list at [facility]. She stated she was told she is going to need to have a repeat EGD because of recurrent anemia. When patient presented to the ER today, hemoglobin was 6.8, WBC 2.7, PLT 52, ammonia 69, and both alk phos and lipase greater than 300. . PMH/Family/Social Past Surgical History Past Surgical Hx: cholecystectomy, endoscopy, other Social History Smoking Status: Never smoker Exam/Review of Systems Vital Signs Vitals Vital Signs Date Time Temp Pulse Resp B/P Pulse Ox O2 Delivery O2 Flow Rate FiO2 04/29/17 02:00 98.6 70 18 98/53 98 04/29/17 00:00 Room Air Exam Constitutional: alert, oriented, well developed Head: atraumatic, normocephalic Eyes: EOMI, PERRL Respiratory: clear to auscultation, normal air movement Cardiovascular: nl pulses, regular rate and rhythm Gastrointestinal: soft, tender Extremities: normal pulses Labs Result Diagram: 04/28/17222504/28/172225 Medications Medications Current Medications Ondansetron HCl (Zofran Inj) 4 mg Q6H PRN IV NAUSEA AND/OR VOMITING; Start at 02:00 Acetaminophen (Tylenol Tab) 650 mg Q6H PRN PO PAIN LEVEL 1-3 OR FEVER; Start at 02:00 Morphine Sulfate (morphine) 2 mg Q4H PRN IV SEVERE PAIN LEVEL 7-10; Start 04/29 at 02:00 Magnesium Hydroxide (Milk Of Mag) 30 ml DAILY PRN PO CONSTIPATION; Start at 02:00 Pantoprazole (Protonix Iv) 40 mg DAILY@06 IV Last administered on 04/29/17t 05: 11; Admin Dose 40 MG; Start 04/29/17 at 06:00 Furosemide (Lasix) 40 mg DAILY PO ; Start 04/29/17 at 09:00 Magnesium Oxide (Mag-Ox 400) 400 mg DAILY PO ; Start 04/29/17 at 09:00 Montelukast Sodium (Singulair) 10 mg QHS PO ; Start 04/29/17 at 21:00 Propranolol HCl (Inderal) 25 mg DAILY PO ; Start 04/29/17 at 09:00 Spironolactone (Aldactone) 150 mg DAILY PO ; Start 04/29/17 at 09:00 Ursodiol (Actigall) 300 mg QPM PO ; Start 04/29/17 at 21:00 Lactulose (Enulose) 20 gm TID PO ; Start 04/29/17 at 09:00 Miscellaneous Information 5 mg DAILY PO ; Start 04/29/17 at 09:00; Status UNV EUSEBIA BOONE MD Apr 29, 2017 05:58
[2017-04-29] MEDS: PROPRANOLOL 10 MG TAB PO SCH (09:00)
[2017-04-29] MEDS: LACTULOSE 30ML CUP PO SCH ×3 (09:00→20:35)
[2017-04-29] MEDS ORDERED: OBETICHOLIC ACID 5 MG XX SCH (09:00)
[2017-04-29] MEDS: MAGNESIUM OXIDE 400 MG TAB PO SCH (09:00)
[2017-04-29] MEDS: SPIRONOLACTONE 50 MG TAB PO SCH (09:00)
[2017-04-29] MEDS: FUROSEMIDE 40 MG TAB PO SCH (11:58)
--- NOTE | 2017-04-29 13:49 | CONS ---
Date/Time of Note Date/Time of Note DATE: 04/29/17 TIME: 13:35 Assessment/Plan Assessment/Plan Additional Assessment/Plan Assessment * Anemia Acute vs chronic * Liver cancer * H/O EGD Plan * NPO * Continue present management * EGD possibly today risks and benefit explained to the patient and agreed with the procedure * case discussed with Dr Manzano * further orders will depend on clinical course Consultation Date/Type/Reason Admit Date/Time Apr 28, 2017 at 23:26 Date of Consultation: Apr 29, 2017 Type of Consultation: Gastroenterology Reason for Consultation anemia Referring Provider: NICHOLAS ALCOCER Hx of Present Illness 37 year old female with history of liver cancer,recurrent anemia,encephalopathy, presented in the emergency roon with low hemoglobin and body weakness.Patient claims have dark colored stool for the past 2 weeks with no hematemesis.She had endoscopy last 01/15 EGD no varices,mild portal hypertensive gastropathy.Patient claims that [facility] is requesting endoscopy to reassess status . Constitutional: improved, no complaints ENT: no complaints Respiratory: no complaints Cardiovascular: no complaints Gastrointestinal: other (melena) Genitourinary: no complaints Musculoskeletal: no complaints Skin: no complaints Neurologic: no complaints Endocrine: no complaints Lymphatic: no complaints Psychological: nl mood/affect, no complaints Immunologic: no complaints Past Medical History Medical History: GI bleed, other (liver cancer,encephalopathy) Past Surgical History Past Surgical Hx: cholecystectomy, endoscopy, other Social History Smoking Status: Never smoker Exam/Review of Systems Vital Signs Vitals Vital Signs Date Time Temp Pulse Resp B/P Pulse Ox O2 Delivery O2 Flow Rate FiO2 04/29/17 08:46 98.1 69 19 101/51 98 04/29/17 00:00 Room Air Intake and Output 04/28/17 04/28/17 04/29/17 15:00 23:00 07:00 Intake Total 540 ml Output Total 500 ml Balance 40 ml Results Result Diagram: 04/28/17222504/28/172225 Results 24 hrs Laboratory Tests Test 04/28/17 22:20 04/28/17 22:26 Urine Color YELLOW Urine Clarity SLIGHTLY CLOUDY A Urine pH 7.0 Urine Specific [place] 1.008 Urine Ketones NEGATIVE Urine Nitrite NEGATIVE Urine Bilirubin NEGATIVE Urine Urobilinogen 1+ H Urine Leukocyte Esterase NEGATIVE Urine Microscopic RBC 1 Urine Microscopic WBC 1 Urine Squamous Epithelial Cells FEW Urine Bacteria FEW A Urine Hemoglobin 2+ H Urine Glucose NEGATIVE Urine Total Protein NEGATIVE White Blood Count 2.7 #L Red Blood Count 2.70 L Hemoglobin 6.8 *L Hematocrit 22.3 L Mean Corpuscular Volume 82.6 Mean Corpuscular Hemoglobin 25.2 L Mean Corpuscular Hemoglobin Concent 30.5 L Red Cell Distribution Width 16.6 H Platelet Count 52 #L Mean Platelet Volume 10.0 Neutrophils % Segmented Neutrophils % (Manual) 67 Band Neutrophils % (Manual) 1 Lymphocytes % Lymphocytes % (Manual) 19 Monocytes % Monocytes % (Manual) 12 H Eosinophils % Eosinophils % (Manual) 1 Basophils % Nucleated Red Blood Cells % 0.0 Neutrophils # Neutrophils # (Manual) 1.8 Band Neutrophils # 0.0 Absolute Lymphocytes (Manual) 0.5 L Lymphocytes # 0.5 L Monocytes # 0.3 Absolute Monocytes (Manual) 0.3 Eosinophils # 0.0 Basophils # Nucleated Red Blood Cells # Platelet Estimate DECREASED Prothrombin Time 17.1 H Prothrombin Time Ratio 1.3 INR International Normalized Ratio 1.39 Activated Partial Thromboplast Time 28.9 Sodium Level 130 L Potassium Level 4.6 Chloride Level 102 Carbon Dioxide Level 24 Anion Gap 9 Blood Urea Nitrogen 9 Creatinine 0.60 Glucose Level 101 Calcium Level 7.7 L Total Bilirubin 0.8 Direct Bilirubin 0.00 Indirect Bilirubin 0.8 Aspartate Amino Transf (AST/SGOT) 64 H Alanine Aminotransferase (ALT/SGPT) 51 Alkaline Phosphatase 339 H Ammonia 69 H Troponin I < 0.012 Total Protein 6.3 Albumin 2.6 L Globulin 3.70 H Albumin/Globulin Ratio 0.70 Lipase 358 H Medications Medications Current Medications Ondansetron HCl (Zofran Inj) 4 mg Q6H PRN IV NAUSEA AND/OR VOMITING; Start at 02:00 Acetaminophen (Tylenol Tab) 650 mg Q6H PRN PO PAIN LEVEL 1-3 OR FEVER; Start at 02:00 Morphine Sulfate (morphine) 2 mg Q4H PRN IV SEVERE PAIN LEVEL 7-10; Start 04/29 at 02:00 Magnesium Hydroxide (Milk Of Mag) 30 ml DAILY PRN PO CONSTIPATION; Start at 02:00 Pantoprazole (Protonix Iv) 40 mg DAILY@06 IV Last administered on 17at 05: 11; Admin Dose 40 MG; Start 04/29/17 at 06:00 Furosemide (Lasix) 40 mg DAILY PO Last administered on 04/29/17t 11:58; Admin Dose 40 MG; Start 04/29/17 at 09:00 Magnesium Oxide (Mag-Ox 400) 400 mg DAILY PO ; Start 04/29/17 at 09:00 Montelukast Sodium (Singulair) 10 mg QHS PO ; Start 04/29/17 at 21:00 Propranolol HCl (Inderal) 25 mg DAILY PO ; Start 04/29/17 at 09:00 Spironolactone (Aldactone) 150 mg DAILY PO ; Start 04/29/17 at 09:00 Ursodiol (Actigall) 300 mg QPM PO ; Start 04/29/17 at 21:00 Lactulose (Enulose) 20 gm TID PO ; Start 04/29/17 at 09:00 Miscellaneous Information 5 mg DAILY PO ; Start 04/29/17 at 09:00; Status UNV ABDIFATAH GHOTRA NP Apr 29, 2017 13:49
[2017-04-29 15:10] LABS: ABNORMAL IP MESSAGE 1; HEMATOCRIT 29.2 % (37.0-47.0); HEMOGLOBIN 9.2 g/dl (12.0-16.0); MEAN CORPUSCULAR HEMOGLOBIN 25.8 pg (29.0-33.0); MEAN CORPUSCULAR HGB CONC 31.5 g/dl (32.0-37.0); MEAN CORPUSCULAR VOLUME 81.8 fl (82.0-101.0); MEAN PLATELET VOLUME 10.8 fl (7.4-10.4); PLATELET COUNT 48 10^3/UL (140-415); RED BLOOD COUNT 3.57 10^6/ul (4.20-5.40); RED CELL DISTRIBUTION WIDTH 15.8 % (11.5-14.5); WHITE BLOOD COUNT 1.9 10^3/ul (4.8-10.8)
[2017-04-29 15:16] LABS: POSITIVE DIFF @See below
[2017-04-29 15:32] LABS: ALBUMIN 2.5 g/dl (3.3-4.9); ALBUMIN/GLOBULIN RATIO 0.71; BILIRUBIN,DIRECT 0.1 mg/dl (0.00-0.20); BILIRUBIN,INDIRECT 1.3 mg/dl (0-1.1); BILIRUBIN,TOTAL 1.4 mg/dl (0.2-1.3); CALCIUM 7.9 mg/dl (8.4-10.2); CREATININE 0.68 mg/dl (0.44-1.00); MAGNESIUM 1.8 mg/dl (1.7-2.5); PHOSPHORUS 4.2 mg/dl (2.5-4.9); POTASSIUM 4.7 mmol/L (3.5-5.1)
[2017-04-29 16:34] LABS: ANISOCYTOSIS 1+ (0-0); EOSINOPHILS % (M) 4 % (0-7); MICROCYTOSIS 1+ (0-0); MONOCYTES % (M) 6 % (0-11); PLATELET ESTIMATE DECREASED
--- NOTE | 2017-04-29 16:39 | PN ---
Date/Time of Note Date/Time of Note DATE: 04/29/17 TIME: 16:32 Assessment/Plan VTE Prophylaxis VTE Prophylaxis Intervention: SCD's Lines/Catheters IV Catheter Type (from Nrsg): Saline Lock Assessment/Plan Assessment/Plan 1. Pancytopenia, with recurrent anemia, H/H improved with 2 units PRBCs, follow up with CBC, EGD today per GI 2. Cryptogenic liver cancer, Currently in the liver transplant list at [facility] 3. high Lipase, no significant evidence of pancreatitis. start diet after EGD Subjective 24 Hr Interval Summary Free Text/Dictation nausea in am. mild right upper abdominal pain Exam/Review of Systems Vital Signs Vitals Vital Signs Date Time Temp Pulse Resp B/P Pulse Ox O2 Delivery O2 Flow Rate FiO2 04/29/17 08:46 98.1 69 19 101/51 98 04/29/17 00:00 Room Air Intake and Output 04/28/17 04/28/17 04/29/17 15:00 23:00 07:00 Intake Total 540 ml Output Total 500 ml Balance 40 ml Exam Constitutional: alert, oriented, well developed Psych: nl mood/affect, no complaints Head: atraumatic, normocephalic Eyes: EOMI, nl conjunctiva, nl lids ENMT: nl external ears & nose, nl lips & teeth, nl nasal mucosa & septum Neck: non-tender, supple Respiratory: clear to auscultation, normal air movement, No congested cough, No crackles/rales, No diminished breath sounds, No intercostal retraction, No labored breathing, No other, No respirations, No tactile fremitus, No wheezing Cardiovascular: nl pulses, regular rate and rhythm, No S3, No S4, No bruits, No diastolic murmur, No edema, No gallop, No irregular rhythm, No jugular venous distention (JVD), No murmurs/extra sounds, No other, No rub, No systolic murmur Gastrointestinal: distended, soft Musculoskeletal: nl extremities to inspection Extremities: No calf tenderness, No clubbing, No cyanosis, No edema, No normal pulses, No other, No palpable cord, No pitting pedal edema, No tenderness Neurological: COUNCILPERSON II-XII intact, nl mental status, nl speech, nl strength Skin: nl turgor Results Result Diagram: 04/29/17 1425 04/29/17 1425 Results 24 hrs Laboratory Tests Test 04/28/17 22:20 04/28/17 22:26 04/29/17 14:25 Urine Color YELLOW Urine Clarity SLIGHTLY CLOUDY A Urine pH 7.0 Urine Specific [place] 1.008 Urine Ketones NEGATIVE Urine Nitrite NEGATIVE Urine Bilirubin NEGATIVE Urine Urobilinogen 1+ H Urine Leukocyte Esterase NEGATIVE Urine Microscopic RBC 1 Urine Microscopic WBC 1 Urine Squamous Epithelial Cells FEW Urine Bacteria FEW A Urine Hemoglobin 2+ H Urine Glucose NEGATIVE Urine Total Protein NEGATIVE White Blood Count 2.7 #L 1.9 #L Red Blood Count 2.70 L 3.57 #L Hemoglobin 6.8 *L 9.2 #L Hematocrit 22.3 L 29.2 #L Mean Corpuscular Volume 82.6 81.8 L Mean Corpuscular Hemoglobin 25.2 L 25.8 L Mean Corpuscular Hemoglobin Concent 30.5 L 31.5 L Red Cell Distribution Width 16.6 H 15.8 H Platelet Count 52 #L 48 L Mean Platelet Volume 10.0 10.8 H Neutrophils % Segmented Neutrophils % (Manual) 67 Band Neutrophils % (Manual) 1 Lymphocytes % Lymphocytes % (Manual) 19 Monocytes % Monocytes % (Manual) 12 H Eosinophils % Eosinophils % (Manual) 1 Basophils % Nucleated Red Blood Cells % 0.0 0.0 Neutrophils # Neutrophils # (Manual) 1.8 Band Neutrophils # 0.0 Absolute Lymphocytes (Manual) 0.5 L Lymphocytes # 0.5 L Monocytes # 0.3 Absolute Monocytes (Manual) 0.3 Eosinophils # 0.0 Basophils # Nucleated Red Blood Cells # Platelet Estimate DECREASED Prothrombin Time 17.1 H Prothrombin Time Ratio 1.3 INR International Normalized Ratio 1.39 Activated Partial Thromboplast Time 28.9 Sodium Level 130 L 135 Potassium Level 4.6 4.7 Chloride Level 102 107 Carbon Dioxide Level 24 25 Anion Gap 9 8 Blood Urea Nitrogen 9 9 Creatinine 0.60 0.68 Glucose Level 101 83 Calcium Level 7.7 L 7.9 L Total Bilirubin 0.8 1.4 H Direct Bilirubin 0.00 0.10 Indirect Bilirubin 0.8 1.3 H Aspartate Amino Transf (AST/SGOT) 64 H 64 H Alanine Aminotransferase (ALT/SGPT) 51 51 Alkaline Phosphatase 339 H 322 H Ammonia 69 H Troponin I < 0.012 Total Protein 6.3 6.0 L Albumin 2.6 L 2.5 L Globulin 3.70 H 3.50 H Albumin/Globulin Ratio 0.70 0.71 Lipase 358 H Phosphorus Level 4.2 Magnesium Level 1.8 Medications Medications Current Medications Ondansetron HCl (Zofran Inj) 4 mg Q6H PRN IV NAUSEA AND/OR VOMITING; Start at 02:00 Acetaminophen (Tylenol Tab) 650 mg Q6H PRN PO PAIN LEVEL 1-3 OR FEVER; Start at 02:00 Morphine Sulfate (morphine) 2 mg Q4H PRN IV SEVERE PAIN LEVEL 7-10; Start 04/29 at 02:00 Magnesium Hydroxide (Milk Of Mag) 30 ml DAILY PRN PO CONSTIPATION; Start at 02:00 Pantoprazole (Protonix Iv) 40 mg DAILY@06 IV Last administered on 04/29/17 05: 11; Admin Dose 40 MG; Start 04/29/17 at 06:00 Furosemide (Lasix) 40 mg DAILY PO Last administered on 04/29/17 11:58; Admin Dose 40 MG; Start 04/29/17 at 09:00 Magnesium Oxide (Mag-Ox 400) 400 mg DAILY PO ; Start 04/29/17 at 09:00 Montelukast Sodium (Singulair) 10 mg QHS PO ; Start 04/29/17 at 21:00 Propranolol HCl (Inderal) 25 mg DAILY PO ; Start 04/29/17 at 09:00 Spironolactone (Aldactone) 150 mg DAILY PO ; Start 04/29/17 at 09:00 Ursodiol (Actigall) 300 mg QPM PO ; Start 04/29/17 at 21:00 Lactulose (Enulose) 20 gm TID PO ; Start 04/29/17 at 09:00 Miscellaneous Information 5 mg DAILY PO ; Start 04/29/17 at 09:00; Status MARCELLUS KRISHNA MD Apr 29, 2017 16:39
[2017-04-29] MEDS ORDERED: PROPOFOL 20 ML ONE (18:07)
[2017-04-29] MEDS ORDERED: LIDOCAINE 2% (SDV) 5 ML INJ ONE (18:07)
--- NOTE | 2017-04-29 18:22 | OPPN ---
Date/Time of Note Date/Time of Note DATE: 04/29/17 TIME: 18:19 Proc Note GI Procedure Date 04/29/17 Pre-procedure Diagnosis * Anemia Post-procedure Diagnosis Impression: * Grade I/IV esophageal varices. No stigmata * Portal hypertensive gastropathy. * Rule out H. pylori infection. Biopsies obtained Plan: Continue PPI therapy Monitor for further evidence of bleeding Review pathology . Procedure Performed: Endoscopy (With biopsies) Surgeon HARISH BLACKWOOD MD Timber Girdler none Tourniquet Time none EBL none Transfusion required none Biopsy 1: Gastric antrum/rule out H. pylori infection Grafts/Implants none Tubes/Drains none Complication(s) none Pt Condition post procedure: stable Disposition: PACU Indications: other (Anemia) Procedure Description After informed consent, with the patient/relatives understanding the procedure, its indications, potential risks and complications, including but not limited to : allergic reaction, bleeding, perforation or infection, and after all pertinent questions were answered to the patients satisfaction, the patient/ relatives signed witnessed informed consent. Following this, premedication was administered slowly IV push under careful cardiovascular and respiratory monitoring with pulse oximetry, automatic blood pressure, and environmental monitoring technician. Once the sedative effect was achieved the patient was place in the left lateral decubitus, the panendoscope was introduced and advanced under visual control. Careful examination of the upper gastrointestinal tract, both on insertion as well as withdrawal of the instrument disclosing the following findings: ESOPHAGUS: the mucosa of the entire esophagus was carefully examined and showed the following findings: There are grade I/IV varices with no stigmata. Otherwise the mucosa appears within normal limits. There is no evidence of esophagitis, neoplasm, or stricture. No Hiatal Hernia identified. STOMACH: Upon entrance to the stomach air was insufflated, the gastric chicas distended normally. The mucosa of the fundus, body and antrum of the stomach was carefully examined both head-on and on retroflexion, and showed the following findings: There is congestion, erythema and friability of the mucosa of the entire stomach. This findings are consistent with portal hypertensive gastropathy. Biopsies were obtained in a limited fashion the antrum of the stomach to rule out H. pylori infection. Otherwise the mucosa appears within normal limits with no abnormalities. There is no evidence of ulcers or neoplasm. PYLORUS: The pylorus was carefully examined and showed the following findings: the pylorus appears patent and within normal limits, with no evidence of gastric outlet obstruction. DUODENUM: The duodenal mucosa was carefully examined in the duodenal bulb as well as the second portion of the duodenum and showed the following findings: the mucosa appears unremarkable with no evidence of duodenitis, ulcer or neoplasm. Copies To: CC: HARISH BLACKWOOD MD, MORDO MD Apr 29, 2017 18:22
[2017-04-29] MEDS ORDERED: EPHEDrine SULFATE 50 MG/5 ML SYG ONE (18:36)
[2017-04-29] MEDS: MONTELUKAST 10 MG TAB PO SCH (20:34)
[2017-04-29] MEDS: URSODIOL 300 MG CAP PO SCH (20:34)
[2017-04-29] MEDS ORDERED: BENZOCAINE 10% 7 GM GEL MM SCH (22:30)
[2017-04-30 02:48] VITALS: BP 105/56; RESP 18
[2017-04-30] MEDS: PANTOPRAZOLE 40 MG INJ IV SCH (06:16)
[2017-04-30 07:08] LABS: ABNORMAL IP MESSAGE 1; BASOPHILS % 1.1 % (0.0-2.0); EOSINOPHILS % 1.6 % (0.0-7.0); HEMATOCRIT 28.2 % (37.0-47.0); HEMOGLOBIN 8.8 g/dl (12.0-16.0); LYMPHOCYTES # 0.6 10^3/ul (0.8-2.9); LYMPHOCYTES % 30.4 % (15.0-51.0); MEAN CORPUSCULAR HEMOGLOBIN 25.6 pg (29.0-33.0); MEAN CORPUSCULAR HGB CONC 31.2 g/dl (32.0-37.0); MEAN PLATELET VOLUME 9.3 fl (7.4-10.4); MONOCYTE # 0.3 10^3/ul (0.3-0.9); MONOCYTES % 14.1 % (0.0-11.0); NEUTROPHILS % 52.8 % (39.0-77.0); PLATELET COUNT 40 10^3/UL (140-415); RED BLOOD COUNT 3.44 10^6/ul (4.20-5.40); RED CELL DISTRIBUTION WIDTH 15.9 % (11.5-14.5); WHITE BLOOD COUNT 1.8 10^3/ul (4.8-10.8)
[2017-04-30 07:17] LABS: POSITIVE DIFF @See below
[2017-04-30 07:38] LABS: CALCIUM 7.7 mg/dl (8.4-10.2); CREATININE 0.71 mg/dl (0.44-1.00); MAGNESIUM 1.8 mg/dl (1.7-2.5); PHOSPHORUS 4.7 mg/dl (2.5-4.9); POTASSIUM 4.7 mmol/L (3.5-5.1)
[2017-04-30] MEDS: BENZOCAINE 7.5% 0.33 OZ MM SCH ×2 (07:57→20:57)
[2017-04-30 08:00] VITALS: BP 104/66; RESP 19
[2017-04-30] MEDS: LACTULOSE 30ML CUP PO SCH ×3 (08:19→20:54)
[2017-04-30] MEDS: MAGNESIUM OXIDE 400 MG TAB PO SCH (08:20)
[2017-04-30] MEDS: SPIRONOLACTONE 50 MG TAB PO SCH (08:25)
[2017-04-30] MEDS: FUROSEMIDE 40 MG TAB PO SCH (08:25)
[2017-04-30] MEDS: PROPRANOLOL 10 MG TAB PO SCH (08:25)
--- NOTE | 2017-04-30 12:08 | PN ---
Date/Time of Note Date/Time of Note DATE: 04/30/17 TIME: 12:06 Assessment/Plan VTE Prophylaxis VTE Prophylaxis Intervention: SCD's Lines/Catheters IV Catheter Type (from Nrs): Saline Lock Assessment/Plan Chief Complaint/Hosp Course Assessment and plan 1. Pancytopenia with recurrent anemia. Improved status post PRBC transfusion. Monitor trend. Patient status post EGD. Follow-up on biopsy results. Continue on PPI medication for now. 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 Patient to follow-up at [facility] for further management of this issue. She is of note on liver transplant list at [facility]. 3. Pancreatitis. Improved at present. No further reported pain at this time. Will follow. Disposition plan: Monitor H&H trend. If remains stable anticipate discharge. follow up on biopsy from EGD. Discharged in medically stable for by consultants Discussed plan of care with Dr. Cunningham Problems: Subjective 24 Hr Interval Summary Free Text/Dictation No reported pain at this time. No reports of hematemesis. Comfortable at present. Exam/Review of Systems Vital Signs Vitals Vital Signs Date Time Temp Pulse Resp B/P Pulse Ox O2 Delivery O2 Flow Rate FiO2 04/30/17 08:00 98.1 77 19 104/66 99 04/29/17 18:47 Room Air Intake and Output 04/29/17 04/29/17 04/30/17 15:00 23:00 07:00 Intake Total 350 ml 550 ml Balance 350 ml 550 ml Exam Constitutional: alert, oriented Psych: nl mood/affect Head: normocephalic Eyes: icteric Respiratory: clear to auscultation, normal air movement Cardiovascular: regular rate and rhythm Gastrointestinal: non-tender, soft Extremities: normal pulses Neurological: EQUINE BREEDER II-XII intact, nl mental status, nl speech Results Result Diagram: 04/30/17 0639 04/30/17 0639 Results 24 hrs Laboratory Tests Test 04/29/17 14:25 04/30/17 06:39 White Blood Count 1.9 #L 1.8 L Red Blood Count 3.57 #L 3.44 L Hemoglobin 9.2 #L 8.8 L Hematocrit 29.2 #L 28.2 L Mean Corpuscular Volume 81.8 L 82.0 Mean Corpuscular Hemoglobin 25.8 L 25.6 L Mean Corpuscular Hemoglobin Concent 31.5 L 31.2 L Red Cell Distribution Width 15.8 H 15.9 H Platelet Count 48 L 40 L Mean Platelet Volume 10.8 H 9.3 Neutrophils % 52.8 Segmented Neutrophils % (Manual) 49 Lymphocytes % 30.4 Lymphocytes % (Manual) 40 Monocytes % 14.1 H Monocytes % (Manual) 6 Eosinophils % 1.6 Eosinophils % (Manual) 4 Basophils % 1.1 Nucleated Red Blood Cells % 0.0 0.0 Neutrophils # 1.0 L Absolute Lymphocytes (Manual) 0.7 L Lymphocytes # 0.6 L Monocytes # 0.3 Absolute Monocytes (Manual) 0.1 L Eosinophils # 0.0 Basophils # 0.0 Nucleated Red Blood Cells # 0.0 Platelet Estimate DECREASED Anisocytosis 1+ Microcytosis 1+ Sodium Level 135 135 Potassium Level 4.7 4.7 Chloride Level 107 105 Carbon Dioxide Level 25 26 Anion Gap 8 9 Blood Urea Nitrogen 9 10 Creatinine 0.68 0.71 Glucose Level 83 73 Calcium Level 7.9 L 7.7 L Phosphorus Level 4.2 4.7 Magnesium Level 1.8 1.8 Total Bilirubin 1.4 H Direct Bilirubin 0.10 Indirect Bilirubin 1.3 H Aspartate Amino Transf (AST/SGOT) 64 H Alanine Aminotransferase (ALT/SGPT) 51 Alkaline Phosphatase 322 H Total Protein 6.0 L Albumin 2.5 L Globulin 3.50 H Albumin/Globulin Ratio 0.71 Amylase Level 101 Lipase 241 Medications Medications Current Medications Ondansetron HCl (Zofran Inj) 4 mg Q6H PRN IV NAUSEA AND/OR VOMITING; Start at 02:00 Acetaminophen (Tylenol Tab) 650 mg Q6H PRN PO PAIN LEVEL 1-3 OR FEVER; Start at 02:00 Morphine Sulfate (morphine) 2 mg Q4H PRN IV SEVERE PAIN LEVEL 7-10; Start 04/29 at 02:00 Magnesium Hydroxide (Milk Of Mag) 30 ml DAILY PRN PO CONSTIPATION; Start at 02:00 Pantoprazole (Protonix Iv) 40 mg DAILY@06 IV Last administered on 04/30/17 06: 16; Admin Dose 40 MG; Start 04/29/17 at 06:00 Furosemide (Lasix) 40 mg DAILY PO Last administered on 04/30/17 08:25; Admin Dose 40 MG; Start 04/29/17 at 09:00 Magnesium Oxide (Mag-Ox 400) 400 mg DAILY PO Last administered on 04/30/17 08: 20; Admin Dose 400 MG; Start 04/29/17 at 09:00 Montelukast Sodium (Singulair) 10 mg QHS PO Last administered on 04/29/17 20: 34; Admin Dose 10 MG; Start 04/29/17 at 21:00 Propranolol HCl (Inderal) 25 mg DAILY PO Last administered on 04/30/17 08:25; Admin Dose 25 MG; Start 04/29/17 at 09:00 Spironolactone (Aldactone) 150 mg DAILY PO Last administered on 04/30/17 08:25 ; Admin Dose 150 MG; Start 04/29/17 at 09:00 Ursodiol (Actigall) 300 mg QPM PO Last administered on 04/29/17 20:34; Admin Dose 300 MG; Start 04/29/17 at 21:00 Lactulose (Enulose) 20 gm TID PO Last administered on 04/30/17 08:19; Admin Dose 20 GM; Start 04/29/17 at 09:00 Miscellaneous Information 5 mg DAILY PO ; Start 04/29/17 at 09:00; Status UNV Benzocaine (Orajel Baby) 1 applic BID MM Last administered on 04/30/17 07:57; Admin Dose 1 APPLIC; Start 04/29/17 at 23:28 MADELEINE GOODRICH Apr 30, 2017 12:08
[2017-04-30 14:00] VITALS: BP 101/59; RESP 20
[2017-04-30 19:42] VITALS: BP 97/55; RESP 20
[2017-04-30] MEDS: MONTELUKAST 10 MG TAB PO SCH (20:54)
[2017-04-30] MEDS: URSODIOL 300 MG CAP PO SCH (20:54)
[2017-05-01 02:03] VITALS: BP 103/61; RESP 20
[2017-05-01] MEDS: PANTOPRAZOLE 40 MG INJ IV SCH (05:16)
[2017-05-01 08:00] VITALS: BP 103/58; RESP 18
[2017-05-01] MEDS: LACTULOSE 30ML CUP PO SCH ×3 (08:25→20:55)
[2017-05-01] MEDS: SPIRONOLACTONE 50 MG TAB PO SCH (08:26)
[2017-05-01] MEDS: MAGNESIUM OXIDE 400 MG TAB PO SCH (08:26)
[2017-05-01] MEDS: FUROSEMIDE 40 MG TAB PO SCH (08:28)
[2017-05-01] MEDS: PROPRANOLOL 10 MG TAB PO SCH (08:28)
[2017-05-01] MEDS: BENZOCAINE 7.5% 0.33 OZ MM SCH ×2 (08:29→20:55)
[2017-05-01 10:57] LABS: ABNORMAL IP MESSAGE 1; BASOPHILS % 0.5 % (0.0-2.0); EOSINOPHILS % 0.5 % (0.0-7.0); HEMATOCRIT 32.2 % (37.0-47.0); LYMPHOCYTES # 0.5 10^3/ul (0.8-2.9); LYMPHOCYTES % 25.4 % (15.0-51.0); MEAN CORPUSCULAR HEMOGLOBIN 26.2 pg (29.0-33.0); MEAN CORPUSCULAR HGB CONC 31.1 g/dl (32.0-37.0); MEAN CORPUSCULAR VOLUME 84.3 fl (82.0-101.0); MEAN PLATELET VOLUME 9.9 fl (7.4-10.4); MONOCYTE # 0.3 10^3/ul (0.3-0.9); MONOCYTES % 15.5 % (0.0-11.0); NEUTROPHIL # 1.1 10^3/ul (1.6-7.5); NEUTROPHILS % 58.1 % (39.0-77.0); PLATELET COUNT 44 10^3/UL (140-415); RED BLOOD COUNT 3.82 10^6/ul (4.20-5.40); RED CELL DISTRIBUTION WIDTH 15.9 % (11.5-14.5); WHITE BLOOD COUNT 1.9 10^3/ul (4.8-10.8)
[2017-05-01 10:58] LABS: POSITIVE DIFF @See below
--- NOTE | 2017-05-01 12:29 | PN ---
Date/Time of Note Date/Time of Note DATE: 05/01/17 TIME: 12:22 Assessment/Plan VTE Prophylaxis VTE Prophylaxis Intervention: SCD's Lines/Catheters IV [facility] Saline Lock Urinary Cath still in place: No Assessment/Plan Chief Complaint/Hosp Course Assessment and plan 1. Pancytopenia with recurrent anemia. Improved status post PRBC transfusion. Monitor trend. Patient status post EGD. Follow-up on biopsy results. Continue on PPI medication for now. still with noted leukopenia. 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 Patient to follow-up at [facility] for further management of this issue. She is of note on liver transplant list at [facility]. 3. Pancreatitis. Improved at present. No further reported pain at this time. Will follow. Disposition plan: Monitor H&H trend. If remains stable anticipate discharge.follow up on biopsy from EGD. d/c when medically stable and cleared by consultants Discussed plan of care with Dr. Cunningham Problems: Subjective 24 Hr Interval Summary Free Text/Dictation Patient resting at this time. No apparent signs or symptoms of distress at this time per Exam/Review of Systems Vital Signs Vitals Vital Signs Date Time Temp Pulse Resp B/P Pulse Ox O2 Delivery O2 Flow Rate FiO2 05/01/17 08:00 98.1 74 18 103/58 100 04/29/17 18:47 Room Air Intake and Output 04/30/17 04/30/17 05/01/17 15:00 23:00 07:00 Intake Total 1440 ml 550 ml Balance 1440 ml 550 ml Exam Constitutional: alert, oriented Psych: nl mood/affect Head: normocephalic Eyes: icteric Respiratory: clear to auscultation, normal air movement Cardiovascular: regular rate and rhythm Gastrointestinal: non-tender, soft Extremities: normal pulses Neurological: STEMHOLE BORER AND TOPPER II-XII intact, nl mental status, nl speech Results Result Diagram: 05/01/17 1004 04/30/17 0639 Results 24 hrs Laboratory Tests Test 05/01/17 05:32 05/01/17 10:04 Lab Scanned Report BLOOD TRANSFUSION White Blood Count 1.9 L Red Blood Count 3.82 L Hemoglobin 10.0 L Hematocrit 32.2 L Mean Corpuscular Volume 84.3 Mean Corpuscular Hemoglobin 26.2 L Mean Corpuscular Hemoglobin Concent 31.1 L Red Cell Distribution Width 15.9 H Platelet Count 44 L Mean Platelet Volume 9.9 Neutrophils % 58.1 Lymphocytes % 25.4 Monocytes % 15.5 H Eosinophils % 0.5 Basophils % 0.5 Nucleated Red Blood Cells % 0.0 Neutrophils # 1.1 L Lymphocytes # 0.5 L Monocytes # 0.3 Eosinophils # 0.0 Basophils # 0.0 Nucleated Red Blood Cells # 0.0 Medications Medications Current Medications Ondansetron HCl (Zofran Inj) 4 mg Q6H PRN IV NAUSEA AND/OR VOMITING; Start at 02:00 Acetaminophen (Tylenol Tab) 650 mg Q6H PRN PO PAIN LEVEL 1-3 OR FEVER; Start at 02:00 Morphine Sulfate (morphine) 2 mg Q4H PRN IV SEVERE PAIN LEVEL 7-10; Start 04/29 at 02:00 Magnesium Hydroxide (Milk Of Mag) 30 ml DAILY PRN PO CONSTIPATION; Start at 02:00 Pantoprazole (Protonix Iv) 40 mg DAILY@06 IV Last administered on 05/01/17 05: 16; Admin Dose 40 MG; Start 04/29/17 at 06:00 Furosemide (Lasix) 40 mg DAILY PO Last administered on 05/01/17 08:28; Admin Dose 40 MG; Start 04/29/17 at 09:00 Magnesium Oxide (Mag-Ox 400) 400 mg DAILY PO Last administered on 05/01/17 08: 26; Admin Dose 400 MG; Start 04/29/17 at 09:00 Montelukast Sodium (Singulair) 10 mg QHS PO Last administered on 04/30/17 20: 54; Admin Dose 10 MG; Start 04/29/17 at 21:00 Propranolol HCl (Inderal) 25 mg DAILY PO Last administered on 05/01/17 08:28; Admin Dose 25 MG; Start 04/29/17 at 09:00 Spironolactone (Aldactone) 150 mg DAILY PO Last administered on 05/01/17 08:26 ; Admin Dose 150 MG; Start 04/29/17 at 09:00 Ursodiol (Actigall) 300 mg QPM PO Last administered on 04/30/17 20:54; Admin Dose 300 MG; Start 9/29/17 at 21:00 Lactulose (Enulose) 20 gm TID PO Last administered on 05/01/17 08:25; Admin Dose 20 GM; Start 04/29/17 at 09:00 Benzocaine (Orajel Baby) 1 applic BID MM Last administered on 05/01/17 08:29; Admin Dose 1 APPLIC; Start 04/29/17 at 23:28 MADELEINE GOODRICH May 01, 2017 12:29
--- NOTE | 2017-05-01 12:44 | PN ---
Date/Time of Note Date/Time of Note DATE: 05/01/17 TIME: 12:40 Assessment/Plan VTE Prophylaxis VTE Prophylaxis Intervention: SCD's Lines/Catheters IV [facility]ter Type (from [facility]): Saline Lock Urinary Cath still in place: No Assessment/Plan Chief Complaint/Hosp Course Summary of Assessment and Plan Assessment: Severe anemia EGD: * Grade I/IV esophageal varices. No stigmata * Portal hypertensive gastropathy. * Rule out H. pylori infection. Biopsies obtained History of cirrhosis of the liver History of hepatocellular carcinoma/under evaluation and treatment at [facility] Plan: Continue present regimen Outpatient follow-up, she has an appointment at [facility] on Tuesday Subjective: Course reviewed with nursing staff Patient interviewed and examined All labs, imaging and other results reviewed The patient reports no evidence of bleeding Tolerating diet without difficulty Feels weak as she generally does We will sign off and follow upon request Exam: General: well developed, under nourished, alert and oriented x3 , in no acute distress Skin: Slight jaundice, hyperpigmented. No lesions, positive stigmata chronic liver disease, no evidence of bleeding diathesis Lymphatic: No palpable lymphadenopathy HEENT: No lesions Cardiovascular: Heart: Regular rate and rhythm, no murmurs, gallops or rubs. Peripheral pulses present within normal limits, no cyanosis, clubbing or edemas. No pulsatile abdominal mass Respiratory: Lungs clear to auscultation and percussion, no wheezing, no rubs Gastrointestinal and Liver: Abdomen: Soft, non tender, mildly distended, no hernias, no masses, no organomegaly, small amount of ascites, no guarding, no rebound tenderness, normoactive bowel sounds. Extremities: No cyanosis, clubbing, or edema. [Neurologic: Cranial nerves II-XII intact, motor within normal limits, sensory within normal limits. Reflexes within normal limits.] [Psychiatric: Alert and oriented x3, mood/affect/judgment adequate] Diagnostic Studies: Available data and images were reviewed personally. See reports. Significant results and findings are addressed here or in the assessment and plan. Problems: Exam/Review of Systems Vital Signs Vitals Vital Signs Date Time Temp Pulse Resp B/P Pulse Ox O2 Delivery O2 Flow Rate FiO2 05/01/17 08:00 98.1 74 18 103/58 100 04/29/17 18:47 Room Air Intake and Output 04/30/17 04/30/1705/01/17 15:00 23:00 07:00 Intake Total 1440 ml 550 ml Balance 1440 ml 550 ml Results Result Diagram: 05/01/17 1004 04/30/17 0639 Results 24 hrs Laboratory Tests Test 05/01/17 05:32 05/01/17 10:04 Lab Scanned Report BLOOD TRANSFUSION White Blood Count 1.9 L Red Blood Count 3.82 L Hemoglobin 10.0 L Hematocrit 32.2 L Mean Corpuscular Volume 84.3 Mean Corpuscular Hemoglobin 26.2 L Mean Corpuscular Hemoglobin Concent 31.1 L Red Cell Distribution Width 15.9 H Platelet Count 44 L Mean Platelet Volume 9.9 Neutrophils % 58.1 Lymphocytes % 25.4 Monocytes % 15.5 H Eosinophils % 0.5 Basophils % 0.5 Nucleated Red Blood Cells % 0.0 Neutrophils # 1.1 L Lymphocytes # 0.5 L Monocytes # 0.3 Eosinophils # 0.0 Basophils # 0.0 Nucleated Red Blood Cells # 0.0 Medications Medications Current Medications Ondansetron HCl (Zofran Inj) 4 mg Q6H PRN IV NAUSEA AND/OR VOMITING; Start at 02:00 Acetaminophen (Tylenol Tab) 650 mg Q6H PRN PO PAIN LEVEL 1-3 OR FEVER; Start at 02:00 Morphine Sulfate (morphine) 2 mg Q4H PRN IV SEVERE PAIN LEVEL 7-10; Start 04/29 at 02:00 Magnesium Hydroxide (Milk Of Mag) 30 ml DAILY PRN PO CONSTIPATION; Start at 02:00 Pantoprazole (Protonix Iv) 40 mg DAILY@06 IV Last administered on 05/01/17 05: 16; Admin Dose 40 MG; Start 04/29/17 at 06:00 Furosemide (Lasix) 40 mg DAILY PO Last administered on 05/01/17 08:28; Admin Dose 40 MG; Start 04/29/17 at 09:00 Magnesium Oxide (Mag-Ox 400) 400 mg DAILY PO Last administered on 05/01/17 08: 26; Admin Dose 400 MG; Start 04/29/17 at 09:00 Montelukast Sodium (Singulair) 10 mg QHS PO Last administered on 04/30/17 20: 54; Admin Dose 10 MG; Start 04/29/17 at 21:00 Propranolol HCl (Inderal) 25 mg DAILY PO Last administered on 05/01/17 08:28; Admin Dose 25 MG; Start 04/29/17 at 09:00 Spironolactone (Aldactone) 150 mg DAILY PO Last administered on 05/01/17 08:26 ; Admin Dose 150 MG; Start 04/29/17 at 09:00 Ursodiol (Actigall) 300 mg QPM PO Last administered on 04/30/17 20:54; Admin Dose 300 MG; Start 04/29/17 at 21:00 Lactulose (Enulose) 20 gm TID PO Last administered on 05/01/17 08:25; Admin Dose 20 GM; Start 04/29/17 at 09:00 Benzocaine (Orajel Baby) 1 applic BID MM Last administered on 05/01/17 08:29; Admin Dose 1 APPLIC; Start 04/29/17 at 23:28 HARISH BLACKWOOD MD May 01, 2017 12:44
[2017-05-01 14:00] VITALS: BP 97/54; RESP 18
[2017-05-01 19:40] VITALS: BP 107/60; RESP 18
[2017-05-01] MEDS: ACETAMINOPHEN 325 MG TAB PO PRN (20:55)
[2017-05-01] MEDS: URSODIOL 300 MG CAP PO SCH (20:55)
[2017-05-01] MEDS: MONTELUKAST 10 MG TAB PO SCH (20:55)
[2017-05-02 02:05] VITALS: BP 92/51; RESP 16
[2017-05-02] MEDS: PANTOPRAZOLE 40 MG INJ IV SCH (05:03)
[2017-05-02 06:24] LABS: ABNORMAL IP MESSAGE 1; BASOPHILS % 0.5 % (0.0-2.0); EOSINOPHILS % 1.9 % (0.0-7.0); HEMATOCRIT 30.1 % (37.0-47.0); HEMOGLOBIN 9.1 g/dl (12.0-16.0); LYMPHOCYTES # 0.5 10^3/ul (0.8-2.9); LYMPHOCYTES % 26.2 % (15.0-51.0); MEAN CORPUSCULAR HEMOGLOBIN 25.6 pg (29.0-33.0); MEAN CORPUSCULAR HGB CONC 30.2 g/dl (32.0-37.0); MEAN CORPUSCULAR VOLUME 84.6 fl (82.0-101.0); MONOCYTE # 0.3 10^3/ul (0.3-0.9); MONOCYTES % 14.1 % (0.0-11.0); NEUTROPHIL # 1.2 10^3/ul (1.6-7.5); NEUTROPHILS % 56.8 % (39.0-77.0); PLATELET COUNT 43 10^3/UL (140-415); RED BLOOD COUNT 3.56 10^6/ul (4.20-5.40); RED CELL DISTRIBUTION WIDTH 16.3 % (11.5-14.5); WHITE BLOOD COUNT 2.1 10^3/ul (4.8-10.8)
[2017-05-02 06:35] LABS: POSITIVE DIFF @See below
[2017-05-02 07:23] LABS: ALBUMIN 2.3 g/dl (3.3-4.9); CALCIUM 7.8 mg/dl (8.4-10.2); CREATININE 0.62 mg/dl (0.44-1.00); POTASSIUM 5.3 mmol/L (3.5-5.1)
[2017-05-02 07:28] LABS: ALBUMIN/GLOBULIN RATIO 0.69; BILIRUBIN,INDIRECT 0.9 mg/dl (0-1.1); BILIRUBIN,TOTAL 0.9 mg/dl (0.2-1.3)
[2017-05-02 07:29] LABS: TOTAL PROTEIN 5.6 g/dl (6.1-8.1)
[2017-05-02 08:07] VITALS: BP 98/51; RESP 16
[2017-05-02] MEDS: MAGNESIUM OXIDE 400 MG TAB PO SCH (08:31)
[2017-05-02] MEDS: LACTULOSE 30ML CUP PO SCH ×2 (08:31→12:52)
[2017-05-02] MEDS: BENZOCAINE 7.5% 0.33 OZ MM SCH (08:31)
[2017-05-02] MEDS: FUROSEMIDE 40 MG TAB PO SCH (09:00)
[2017-05-02] MEDS: SPIRONOLACTONE 50 MG TAB PO SCH (09:00)
[2017-05-02] MEDS: PROPRANOLOL 10 MG TAB PO SCH (09:00)
[2017-05-02 09:45] VITALS: BP 97/58; PULSE 70
[2017-05-02] MEDS: ACETAMINOPHEN 325 MG TAB PO PRN (14:32)
[2017-05-02 14:33] VITALS: BP 97/60; RESP 17
[2017-05-02 15:30] LABS: CALCIUM 7.9 mg/dl (8.4-10.2); CREATININE 0.6 mg/dl (0.44-1.00); POTASSIUM 4.9 mmol/L (3.5-5.1)
--- NOTE | 2017-05-02 16:15 | PDOCDIS ---
Discharge Instructions DIAGNOSIS Discharge Diagnosis Anemia CONDITION Patient Condition: Stable HOME CARE INSTRUCTIONS: Special Diet: SOFT 2GM NA DIET OTHER ORDERS: Other Orders: 1. Resume home medications 2. Resume activities as tolerated. 3. Follow-up with [facility] as scheduled. 4. Go to the nearest emergency room if you have active bleeding, dizziness, or any other unusual signs/symptoms ARACELI FRANKLIN NP May 02, 2017 16:15
--- NOTE | 2017-05-02 19:04 | DS ---
DATE OF ADMISSION: 04/28/2017 DATE OF DISCHARGE: 05/02/2017 FINAL DIAGNOSES: 1. Pancytopenia, with recurrent anemia. 2. Status post esophagogastroduodenoscopy, with no evidence of any active bleeding. 3. Cryptogenic liver cancer, being followed at [facility].The patient on a liver transplant list. 4. Mild pancreatitis, resolved. CONSULTANTS: Lucas Manzano MD, Gastroenterology. HOSPITAL COURSE: This is a 37-year-old female with past medical history of cryptogenic liver cancer, liver cirrhosis and pancytopenia, who presented to the emergency department for further evaluation of her anemia. The patient was instructed from her clinic to go to the nearest emergency room because of low H and H. The patient was noticed to have a hemoglobin and hematocrit of 6.8 and 22.3, respectively in the emergency room. The patient was admitted to inpatient Medical/Surgical floor. The patient was transfused with 2 units of PRBC. The patient was evaluated by Gastroenterology. The patient underwent an esophagogastroduodenoscopy on 04/29/2017 that showed grade 1/4 esophageal varices, with no stigmata and portal hypertensive gastropathy. The patient's gastric biopsy was negative for any H. pylori, and there was no evidence of any malignancy. The patient was continued on her chronic medications, including loop diuretics and aldosterone antagonists, along with the lactulose. The patient had no evidence of any hepatic encephalopathy during the hospital course. As mentioned earlier, the patient follows up with the [facility] for her underlying cryptogenic liver cancer. The patient apparently is on a transplant list for further management of her underlying liver cirrhosis and cryptogenic liver cancer. The patient's H and H improved with her blood transfusion, and the patient is stable to be discharged home, to be followed with outpatient Hepatology at [facility]. DISCHARGE DISPOSITION/PLAN: The patient will be discharged home today. The patient was instructed to resume her home medications. She was instructed to resume activities as tolerated. She was instructed to follow up with the [facility], as scheduled. She was instructed to go to the nearest emergency room if she continues to have any active bleeding, dizziness, or any other unusual signs/symptoms. The patient verbalized understanding of her discharge instructions. DISCHARGE CONDITION: Stable. DISCHARGE MEDICATIONS: 1. Lasix 40 mg p.o. daily. 2. Lactulose 20 g p.o. t.i.d. 3. Magnesium oxide 400 mg p.o. daily. 4. Montelukast 10 mg p.o. at bedtime. 5. Ocaliva 5 mg p.o. daily. 6. Protonix 40 mg p.o. before breakfast. 7. Propranolol 25 mg p.o. daily. 8. Aldactone 150 mg p.o. daily. 9. Ursodiol 300 mg p.o. q.p.m. PERTINENT LABORATORY DIAGNOSTIC DATA AND PROCEDURES: 1. Esophagogastroduodenoscopy. Grade 1/4 esophageal varices, with no stigmata. Portal hypertensive gastropathy. 2. Pathology from gastric biopsy. Negative for H. pylori and malignancy. 3. Latest CBC: WBC 2.1, hemoglobin 9.1, hematocrit 30.1, platelet count 43. 4. Latest BMP: Sodium 136, potassium 4.9, chloride 106, carbon dioxide 25, anion gap 10, BUN 7, creatinine 0.60, glucose 110, calcium 7.9. At this time I would like to thank Dr. Manzano for seeing the patient, doing the necessary procedures, and providing clinical recommendations. The case and management of this patient was fully discussed with Dr. Moralez. Approximately 35 minutes was spent on coordinating the discharge on this patient. Dictated By: Regan Merritt NP /pete/britt /Document#: [id number] RIP
[2017-05-03] MEDS ORDERED: PANTOPRAZOLE (EC) 40 MG TAB PO SCH (06:00)
== END 2017-05-02 18:02 | disposition home or self-care (01) | DRG 808 ==
LOC: E/R 21:07 → PP2 23:26
PROVIDERS: ADMIT Hospitalist; ATTEND Hospitalist
PROC: 30233N1 Transfusion of Nonautologous Red Blood Cells into Peripheral Vein, Percutaneous Approach (ICD-10-PCS; 2017-04-29)
PROC: 0DB68ZX Excision of Stomach, Via Natural or Artificial Opening Endoscopic, Diagnostic (ICD-10-PCS; principal; 2017-04-29 20:30)
DX: D61.818 Other pancytopenia (principal); K85.90 Acute pancreatitis without necrosis or infection, unspecified; C22.8 Malignant neoplasm of liver, primary, unspecified as to type; I85.00 Esophageal varices without bleeding; K76.6 Portal hypertension; K31.89 Other diseases of stomach and duodenum; K74.60 Unspecified cirrhosis of liver
CPT/HCPCS: 36415; 36430; 71010; 80048; 80053; 81001; 82140; 82150; 83690; 83735; 84100; 84484; 85025; 85610; 85730; 86850; 86900; 86901; 86920; 88305; 88312; 93005; 96374; C9113; J2270; J2405; J7040; P9016

== ENCOUNTER 2017-07-14 11:55 | Inpatient (IN) | payer MEDICAID, OTHER ==
[~2017-07-14] VITALS: Ht 160 cm; Wt 56.3 kg
[~2017-07-14 11:55] MED LIST changes: +OBET5TAB PO
--- NOTE | 2017-07-14 17:42 | ERD ---
ER Documentation Chief Complaint Chief Complaint Blood on saliva started this AM. Hx: Liver CA HPI 37-year-old woman complains of upper abdominal and right upper quadrant abdominal pain similar previous episodes as well as gingival bleeding today, she does have a history of liver cancer and has had multiple previous PRBC transfusions for anemia. She states she has been feeling weak recently and her PMD referred her here for evaluation because of recent abnormal labs. She denies blood per rectum or melena, no fevers or chills, no vomiting or diarrhea. She denies cough or fever. ROS All systems reviewed and are negative except as per history of present illness. Medications Home Meds Reported Medications Ferrous Sulfate* (Ferrous Sulfate*) 325 Mg Tabec, 325 MG PO DAILY, TAB 07/14/17 Spironolactone* (Aldactone*) 25 Mg Tablet, 150 MG PO DAILY, #30 TAB 07/14/17 Esomeprazole Mag Trihydrate (Nexium) 40 Mg Capsule.dr, 40 MG PO DAILY, #30 CAP 07/14/17 Lactulose (Generlac) 10 Gm/15 Ml Solution, 20 GM PO TID 04/09/17 Magnesium Oxide* (Magnesium Oxide*) 400 Mg Tablet, 400 MG PO DAILY, TAB 04/09/17 Furosemide* (Furosemide*) 40 Mg Tablet, 40 MG PO DAILY, TAB 02/10/17 Montelukast Sodium* (Montelukast Sodium*) 10 Mg Tablet, 10 MG PO QHS, #30 TAB 10/13/15 Propranolol Hcl* (Propranolol Hcl*) 20 Mg Tablet, 25 MG PO BID, TAB 10/13/15 Ursodiol* (Ursodiol*) 300 Mg Capsule, 300 MG PO QPM, CAP 10/13/15 Discontinued Reported Medications Obeticholic Acid (Ocaliva) 5 Mg Tablet, 5 MG PO DAILY, TAB 04/29/17 Pantoprazole* (Pantoprazole*) 40 Mg Tablet.dr, 40 MG PO AC BREAKFAST, TAB 04/09/17 Spironolactone* (Spironolactone*) 100 Mg Tablet, 150 MG PO DAILY, TAB 03/22/17 Allergies Allergies: Coded Allergies: No Known Drug Allergies (Unverified Allergy, Unknown, 07/14/17) PMhx/Soc Pancytopenia, liver cancer, history of pancreatitis, cirrhosis, chronic edema History of Surgery: Yes (GB, ) Anesthesia Reaction: Yes (SOB ) Hx Neurological Disorder: No Hx Respiratory Disorders: No Hx Cardiac Disorders: Yes (HTN, varicose abdominal veins) Hx Psychiatric Problems: No Hx Miscellaneous Medical Probl: Yes (Liver CA, fibromyalgia) Hx Alcohol Use: No Hx Substance Use: No Hx Tobacco Use: No Smoking Status: Never smoker FmHx Family History: No coronary disease Physical Exam Vitals Vital Signs Date Time Temp Pulse Resp B/P Pulse Ox O2 Delivery O2 Flow Rate FiO2 07/14/17 12:17 98.8 70 18 118/68 100 Physical Exam GENERAL: Well-developed, well-nourished, discomfort, afebrile HEENT: Moist mucous membranes, pink conjunctiva, no cervical spine tenderness or step-off deformities, no goiter, no jaundice or icterus, extraocular movements intact without pain. No submandibular induration, and no pharyngeal erythema NEURO: Alert and oriented 3, cranial nerves II through XII intact bilaterally, pupils equal round reactive to light, no focal deficits or facial asymmetry, sensation intact distally Strength 5/5 in upper and lower extremities bilaterally CARDIAC: Regular rate and rhythm, no murmurs rubs or gallops LUNGS: Clear bilaterally no wheezing crackles or stridor ABDOMEN: Use abdominal tenderness to touch, hepatosplenomegaly, no rigidity, no rebound SKIN: Warm and dry to touch, no abrasions, contusions, or hematomas, no lacerations, no ecchymosis, no target lesions, and without ulcers EXTREMITIES: No clubbing cyanosis or edema, calves are bilaterally symmetrical, no Homans sign, no popliteal cord sign. Distal pulses equal and bilateral PSYCH: Normal affect without agitation or irritability Result Diagram: 07/14/17 1800 07/14/17 1800 Results 24 hrs Laboratory Tests Test 07/14/17 18:00 White Blood Count 2.510^3/ul Red Blood Count 3.8110^6/ul Hemoglobin 10.9g/dl Hematocrit 33.4% Mean Corpuscular Volume 87.7fl Mean Corpuscular Hemoglobin 28.6pg Mean Corpuscular Hemoglobin Concent 32.6g/dl Red Cell Distribution Width 17.1% Platelet Count 4810^3/UL Mean Platelet Volume 9.9fl Neutrophils % % Lymphocytes % % Monocytes % % Eosinophils % % Basophils % % Nucleated Red Blood Cells % 0.0/100WBC Neutrophils # 10^3/ul Lymphocytes # 10^3/ul Monocytes # 10^3/ul Eosinophils # 10^3/ul Basophils # 10^3/ul Nucleated Red Blood Cells # 10^3/ul Prothrombin Time 15.3Sec Prothrombin Time Ratio 1.2 INR International Normalized Ratio 1.19 Activated Partial Thromboplast Time 28.6Sec Sodium Level 137mmol/L Potassium Level 4.3mmol/L Chloride Level 103mmol/L Carbon Dioxide Level 24mmol/L Anion Gap 14 Blood Urea Nitrogen 9mg/dl Creatinine 0.64mg/dl Glucose Level 171mg/dl Calcium Level 8.6mg/dl Total Bilirubin 1.2mg/dl Direct Bilirubin 0.00mg/dl Indirect Bilirubin 1.2mg/dl Aspartate Amino Transf (AST/SGOT) 85IU/L Alanine Aminotransferase (ALT/SGPT) 58IU/L Alkaline Phosphatase 374IU/L Ammonia 33umol/l Total Protein 6.7g/dl Albumin 3.1g/dl Globulin 3.60g/dl Albumin/Globulin Ratio 0.86 Lipase 232U/L Current Medications Medications (Trade) Dose Ordered Sig/Maco Route PRN Reason Start Time Stop Time Status Last Admin Dose Admin Sodium Chloride (NS) 500 ml @ 500 mls/hr Q1H STAT IV 07/14/17 17:55 07/14/17 18:54 DC 07/14/17 18:01 Hydromorphone HCl (Dilaudid) 1 mg ONCE STAT IV 07/14/17 17:59 07/14/17 18:00 DC 07/14/17 18:06 Procedures/[facility] IV line was established patient was placed on manager of corporate rhythm strip revealed a sinus rhythm at about 70 bpm with upright P and T waves. Patient was afebrile EKG performed, read by me: 71 bpm, normal sinus rhythm, normal axis, no acute ST segment changes, narrow QRS complex, with good R-wave progression in precordial leads. CT scan of the abdomen and pelvis was recently performed just about 4 days ago, results reveal partially occlusive thrombus of the portal vein and proximal superior mesenteric vein, hepatosplenomegaly with hepatic lesions, no bowel obstruction was noted. Patient and family member who was at the bedside refused further CT imaging CBC reveals pancytopenia with platelets of 48,000 and hemoglobin at 11, electrolytes were unremarkable, liver function tests normal, ammonia elevated at 33. I administered normal saline 500 cc IV 1 and hydromorphone 1 mg IV 1 for pain. I administered lactulose 20 g p.o. 1 for hyperammonemia. Departure Diagnosis: Primary Impression: Pancytopenia Additional Impressions: Hyperammonemia Liver carcinoma Condition: ATIF Amato MD Jul 14, 2017 17:42
[2017-07-14] MEDS ORDERED: SOD CHLORIDE 0.9% 500 ML IV STA (17:55)
[2017-07-14] MEDS ORDERED: HYDROmorphONE 1 MG/ML SYG IV STA ×2 (17:59→20:46)
[2017-07-14 18:13] LABS: ABNORMAL IP MESSAGE 1; HEMATOCRIT 33.4 % (37.0-47.0); HEMOGLOBIN 10.9 g/dl (12.0-16.0); MEAN CORPUSCULAR HEMOGLOBIN 28.6 pg (29.0-33.0); MEAN CORPUSCULAR HGB CONC 32.6 g/dl (32.0-37.0); MEAN CORPUSCULAR VOLUME 87.7 fl (82.0-101.0); MEAN PLATELET VOLUME 9.9 fl (7.4-10.4); PLATELET COUNT 48 10^3/UL (140-415); RED BLOOD COUNT 3.81 10^6/ul (4.20-5.40); RED CELL DISTRIBUTION WIDTH 17.1 % (11.5-14.5); WHITE BLOOD COUNT 2.5 10^3/ul (4.8-10.8)
[2017-07-14 18:23] LABS: POSITIVE DIFF @See below
[2017-07-14 18:28] LABS: INR 1.19; PROTIME 15.3 Sec (11.9-14.9); PT RATIO 1.2
[2017-07-14 18:29] LABS: PARTIAL THROMBOPLASTIN TIME 28.6 Sec (25.0-35.0)
[2017-07-14] MEDS ORDERED: ESOM40CA PO (18:44)
[2017-07-14 18:45] LABS: ALBUMIN 3.1 g/dl (3.3-4.9); ALBUMIN/GLOBULIN RATIO 0.86; BILIRUBIN,INDIRECT 1.2 mg/dl (0-1.1); BILIRUBIN,TOTAL 1.2 mg/dl (0.2-1.3); CALCIUM 8.6 mg/dl (8.4-10.2); CREATININE 0.64 mg/dl (0.44-1.00); POTASSIUM 4.3 mmol/L (3.5-5.1); TOTAL PROTEIN 6.7 g/dl (6.1-8.1)
[2017-07-14] MEDS ORDERED: FER325 PO (18:45)
[2017-07-14] MEDS ORDERED: SPIR25TA PO (18:45)
[2017-07-14] MEDS ORDERED: LACTULOSE 30ML CUP PO ONE (19:30)
[2017-07-14 19:33] LABS: ANISOCYTOSIS 1+ (0-0); MICROCYTOSIS 1+ (0-0); MONOCYTES % (M) 10 % (0-11); PLATELET ESTIMATE SIG DECREASED; REACTIVE LYMPHOCYTES% (M) 4 % (0-0)
[2017-07-14] MEDS ORDERED: ONDANSETRON 4 MG INJ IV STA (20:46)
[2017-07-14 21:22] VITALS: TEMP 98.3
[2017-07-14] MEDS ORDERED: ACETAMINOPHEN 325 MG TAB PO PRN (21:30)
[2017-07-14] MEDS ORDERED: morphine 2 MG INJ IV PRN (21:30)
[2017-07-14] MEDS ORDERED: NACL 0.9% 3 ML SYG IV SCH (21:30)
[2017-07-14 22:03] VITALS: PULSE 60
[2017-07-14 22:25] VITALS: BP 109/61; RESP 18
[2017-07-14 22:29] VITALS: Ht 160 cm; Wt 56.3 kg
[2017-07-15] VITALS (21 sets, daily range): BP systolic 91–114; BP diastolic 53–78; PULSE 59–90; RESP 12–20
[2017-07-15] MEDS ORDERED: PANTOPRAZOLE (EC) 40 MG TAB PO SCH (06:00)
--- NOTE | 2017-07-15 06:46 | HP ---
Date/Time of Note Date/Time of Note DATE: 07/15/17 TIME: 06:35 Assessment/Plan VTE Prophylaxis VTE Prophylaxis Intervention: SCD's Lines/Catheters IV C[facility]ter Type [facility] Saline Lock Assessment/Plan Chief Complaint/Hosp Course This is a 37-year-old female being admitted to the telemetry floor for: #1 possible esophageal variceal bleed: Since the a.m. of 07/14/2017 patient has not experienced any repeated episodes of oral bleeding. She did have an endoscopy done recently which did show esophageal varices. Her hemoglobin at this time is 10 which is stable compared to her previous hemoglobin on file. At the current time will keep the patient n.p.o., continue patient's atenolol. Will continue to monitor for any signs of bleeding and if so then we will initiate an octreotide drip. The current time will put the patient on Protonix. Will consult GI for further recommendations. #2 liver cancer: Patient is on the transplant list at [facility]. She has a friend who is with her at the bedside today that is being considered as a live donor transplant. We will continue patient's home medications. Her overall lab values appear to be relatively stable. She has been recently receiving chemotherapy as well. Will check an ammonia level, patient though at this time does not appear to be encephalopathic. #3 pancytopenia: Patient's hemoglobin at this time is 10. Will continue to monitor this and look for signs of any active bleeding. Her platelets are within usual values and her INR is 1.2 at the current time as I am not seeing any active bleeding. #4 DVT GI prophylaxis: SCDs, Protonix Further treatment strategy will be implemented as per the clinical course Problems: HPI/ROS Admit Date/Time Admit Date/Time Jul 14, 2017 at 19:45 Hx of Present Illness cc: abdominal pain, spit up blood 37-year-old woman complains of upper abdominal and right upper quadrant abdominal pain similar previous episodes as well spitting up blood early in the day which has since resolved., she does have a history of liver cancer and has had multiple previous PRBC transfusions for anemia. She states she has been feeling weak recently and her PMD referred her here for evaluation because she spit up blood. She denies blood per rectum or melena, no fevers or chills, no vomiting or diarrhea. She denies cough or fever. Patient states that she spit up approximately half a cupful of bright red blood. This occurred in the a.m. and since then has resolved. She is on the transplant list at [facility] and her friend who is accompanying her today is in the process of being her live donor. Allergies: NKDA Medications: See KYREE MORRIS Const: As per HPI Eyes : No pain discharge or redness or change in visual acuity ENT: As per HPI Respiratory: No shortness of breath, cough, sputum, wheezing, or pleuritic pain Cardiovascular: No chest pain, palpitation, PND, or edema GI : no change in appetite, abdominal pain, nausea, vomiting, diarrhea, constipation, or change in the color his stool Genitourinary: No dysuria, hematuria, flank pain , discharge or CVA tenderness Musculoskeletal: No joint pain, back pain, neck pain, restricted range of motion in neck or joints Skin: No rash, bruising or hives Neuro: No headache, dizziness, syncope, seizure, focal weakness Endocrine: No polyuria, polydipsia, temperature intolerance Psych: No hallucination, depression, anxiety or suicidal ideation Hematology: As per HPI PMH/Family/Social Past Medical History cryptogenic liver cancer, hepatic encephalopathy, pancytopenia Past Surgical History Past Surgical Hx: cholecystectomy, endoscopy (Grade I/IV esophageal varices), other Family History Significant Family History: no pertinent family hx Social History Alcohol Use: none Smoking Status: Never smoker Drug Use: none Exam/Review of Systems Vital Signs Vitals Vital Signs Date Time Temp Pulse Resp B/P Pulse Ox O2 Delivery O2 Flow Rate FiO2 07/15/17 04:22 98.0 66 18 105/61 98 07/14/17 21:22 Room Air 07/14/17 18:15 2 Exam Exam General: Patient is lying comfortably in bed in no acute distress. HEENT: Atraumatic, normocephalic. The pupils are equal, round and reactive. Extraocular motor are intact. Oral cavity examined in no blood visualized. Neck: Supple with full range of motion. No rigidity or meningismus Chest: Nontender Lungs: Clear to auscultation bilaterally no crackles rales or wheezing Heart: Normal S1-S2, Regular rhythm and rate. No murmur, S3, or S4 Abdomen: Soft, tender to palpation of the right upper quadrant, normal bowel sounds Extremities: Normal to inspection, no edema no cyanosis Neurologic: Normal mental status, speech normal, cranial nerves II through XII are intact, motor and sensory are intact, no focal weakness, no signs of encephalopathy Labs Result Diagram: 07/14/17 1800 07/14/17 1800 Medications Medications Current Medications Ferrous Sulfate (Ferrous Sulfate (Ec)) 325 mg DAILY PO ; Start 07/15/17 at 09: 00 Furosemide (Lasix) 40 mg DAILY PO ; Start 07/15/17 at 09:00 Magnesium Oxide (Mag-Ox 400) 400 mg DAILY PO ; Start 07/15/17 at 09:00 Montelukast Sodium (Singulair) 10 mg QHS PO ; Start 07/15/17 at 21:00 Propranolol HCl (Inderal) 20 mg BID PO ; Start 07/15/17 at 09:00 Spironolactone (Aldactone) 150 mg DAILY PO ; Start 07/15/17 at 09:00 Ursodiol (Actigall) 300 mg QPM PO ; Start 07/15/17 at 21:00 Pantoprazole (Protonix Tab) 40 mg DAILY@06 PO Last administered on 07/15/17t 06:06; Admin Dose 40 MG; Start 07/15/17 at 06:00 Acetaminophen (Tylenol Tab) 650 mg Q6H PRN PO PAIN LEVEL 1-3 OR FEVER; Start 07/14/17 at 21:30 Morphine Sulfate (morphine) 2 mg Q4H PRN IV PAIN LEVEL 7-10; Start 07/14/17 at 21:30 MICHELLE MUÑOZ Jul 15, 2017 06:46
[2017-07-15 07:54] LABS: ABNORMAL IP MESSAGE 1; HEMATOCRIT 26.9 % (37.0-47.0); HEMOGLOBIN 8.8 g/dl (12.0-16.0); MEAN CORPUSCULAR HEMOGLOBIN 28.4 pg (29.0-33.0); MEAN CORPUSCULAR HGB CONC 32.7 g/dl (32.0-37.0); MEAN CORPUSCULAR VOLUME 86.8 fl (82.0-101.0); MEAN PLATELET VOLUME 9.4 fl (7.4-10.4); RED CELL DISTRIBUTION WIDTH 16.4 % (11.5-14.5); WHITE BLOOD COUNT 2.1 10^3/ul (4.8-10.8)
[2017-07-15 07:56] LABS: PLATELET COUNT 36 10^3/UL (140-415); POSITIVE DIFF @See below
[2017-07-15 08:16] LABS: ALBUMIN 2.3 g/dl (3.3-4.9); ALBUMIN/GLOBULIN RATIO 0.65; BILIRUBIN,INDIRECT 0.9 mg/dl (0-1.1); BILIRUBIN,TOTAL 0.9 mg/dl (0.2-1.3); CALCIUM 8.3 mg/dl (8.4-10.2); CREATININE 0.57 mg/dl (0.44-1.00); POTASSIUM 4.7 mmol/L (3.5-5.1); TOTAL PROTEIN 5.8 g/dl (6.1-8.1)
[2017-07-15] MEDS: FERROUS SULFATE (EC) 325 MG TAB PO SCH (08:55)
[2017-07-15] MEDS: MAGNESIUM OXIDE 400 MG TAB PO SCH (08:55)
[2017-07-15] MEDS ORDERED: FUROSEMIDE 40 MG TAB PO SCH (09:00)
[2017-07-15] MEDS ORDERED: PROPRANOLOL 20 MG TAB PO SCH (09:00)
[2017-07-15] MEDS ORDERED: SPIRONOLACTONE 50 MG TAB PO SCH (09:00)
[2017-07-15] MEDS: CEFTRIAXONE 1 GM/50 ML (PMX) 50 ML IVPB SCH (10:51)
--- NOTE | 2017-07-15 11:49 | CONS ---
Date/Time of Note Date/Time of Note DATE: 07/15/17 TIME: 11:27 Assessment/Plan Assessment/Plan Chief Complaint/Hosp Course Assessment: Rule out GI bleed Hepatocellular carcinoma Plan: EGD today IV maintenance fluid NS 60/hr Continue monitoring H&H transfuse for hemoglobin less than 7.5 Continue monitoring for overt signs of GI bleeding Subjective: Patient is laying in bed complains of feeling slightly nauseous after pain medication. Upon the physical exam abdomen is very tender in right upper quadrant right lower quadrant and left lower quadrant. Patient has been examined and interviewed. Plan of treatment discussed. Risks and benefits of EGD procedure reviewed. Patient is agreeable to the procedure. Nursing staff has been updated on the plan of treatment. All laboratory results and imaging have been reviewed. Consultation has been performed in collaboration with Problems: Consultation Date/Type/Reason Admit Date/Time Jul 14, 2017 at 19:45 Date of Consultation: Jul 15, 2017 Type of Consultation: GI Reason for Consultation Rule out GI bleed Hx of Present Illness This is a very pleasant 37-year-old female with a history of hepatocellular carcinoma. She was admitted yesterday for coughing up blood, about half a cup, dark red/brown color. She reports feeling dizzy the night before, having increased headache and right upper quadrant pain. Next morning she felt nauseous and increased salivation with the taste of blood in her mouth. Currently she continues feeling nauseous but no more bleeding reported. She had an EGD done in April by Dr. Ponce of and found to have esophageal varices grade 1-4 . She is currently on liver transplant list at [facility]. In May she had another endoscopy done at [facility] as a pretransplant screening with no significant findings. Her initial diagnosis of liver fibrosis was in [place] in 2006 followed by liver biopsy. In 2012 she was diagnosed with cirrhosis in [facility], but no liver biopsy was done due to low platelet count. In December 2016 CT scan showed liver tumor. She has undergone one course of chemo and TACE procedure in June. Her surgical history is significant for prior , lap dylan, and liver biopsy. Patient denies smoking, alcoholic or drugs use. Home medications include spironolactone, furosemide, magnesium, iron, propranolol, montelukast, ursodiol, and Nexium. The plan is to perform an EGD this afternoon to rule out upper GI bleed. Patient is started on IV maintenance fluid and will be kept n.p.o. Gastrointestinal: no complaints (See HPI) Past Medical History Hepatocellular carcinoma Past Surgical History Lap dylan, , liver biopsy Past Surgical Hx: cholecystectomy, endoscopy (Grade I/IV esophageal varices), other Family History Significant Family History: other (Liver cancermaternal grandmother, kidney and liver cancerpaternal grandmather) Social History Has 11-year-old daughter Alcohol Use: none Smoking Status: Never smoker Drug Use: none Exam/Review of Systems Vital Signs Vitals Vital Signs Date Time Temp Pulse Resp B/P Pulse Ox O2 Delivery O2 Flow Rate FiO2 07/15/17 08:10 68 07/15/17 08:00 98.2 16 98/57 100 07/14/17 21:22 Room Air 07/14/17 18:15 2 Intake and Output 07/14/17 07/14/17 07/15/17 14:59 22:59 06:59 Intake Total 200 ml Balance 200 ml Exam PHYSICAL EXAMINATION: GENERAL: Well developed, well nourished, alert & oriented x 3, in no acute distress SKIN: No lesions, no stigmata chronic liver disease, no evidence of bleeding diathesis, healed scars from previous surgery LYMPHATIC: No palpable lymphadenopathy. HEAD: Normocephalic, atraumatic, no tenderness. EYES: Pupils equal reactive to light and accommodation, full extraocular movements, sclera clear, non-icteric, no discharge. EARS/NOSE AND THROAT: Ears normal, nose normal, oropharynx normal, oral membranes well hydrated without lesions. NECK: Supple, no masses, thyroid normal, JVP within normal limits, carotids normal without bruits. CHEST: Inspection within normal limits. CARDIOVASCULAR: Heart: Regular rate and rhythm, no murmurs, gallops or rubs. Peripheral pulses present within normal limits, no cyanosis, clubbing or edemas. No pulsatile abdominal mass RESPIRATORY: Lungs clear to auscultation and percussion, no wheezing, no rubs GASTROINTESTINAL AND LIVER: Abdomen: Soft, generalized tenderness, non-distended , no hernias, no masses, no organomegaly, no ascites, no guarding, no rebound tenderness, normoactive bowel sounds. Rectal: Deferred. GENITOURINARY: Female genitalia within normal limits.] EXTREMITIES: No cyanosis, clubbing or edema. Results Result Diagram: 07/15/17 0714 07/15/17 0714 Results 24 hrs Laboratory Tests Test 07/14/17 18:00 07/15/17 07:14 White Blood Count 2.5 L 2.1 L Red Blood Count 3.81 L 3.10 L Hemoglobin 10.9 L 8.8 L Hematocrit 33.4 L 26.9 L Mean Corpuscular Volume 87.7 86.8 Mean Corpuscular Hemoglobin 28.6 L 28.4 L Mean Corpuscular Hemoglobin Concent 32.6 32.7 Red Cell Distribution Width 17.1 H 16.4 H Platelet Count 48 L 36 #L Mean Platelet Volume 9.9 9.4 Neutrophils % Segmented Neutrophils % (Manual) 59 Band Neutrophils % (Manual) 3 Lymphocytes % Lymphocytes % (Manual) 24 Reactive Lymphocytes % (Manual) 4 H Monocytes % Monocytes % (Manual) 10 Eosinophils % Basophils % Nucleated Red Blood Cells % 0.0 0.0 Neutrophils # Neutrophils # (Manual) 1.5 L Band Neutrophils # 0.0 Absolute Lymphocytes (Manual) 0.6 L Lymphocytes # Reactive Lymphocytes # 0.1 H Monocytes # Absolute Monocytes (Manual) 0.2 L Eosinophils # Basophils # Nucleated Red Blood Cells # Platelet Estimate SIG DECREASED Anisocytosis 1+ Microcytosis 1+ Prothrombin Time 15.3 H Prothrombin Time Ratio 1.2 INR International Normalized Ratio 1.19 Activated Partial Thromboplast Time 28.6 Sodium Level 137 136 Potassium Level 4.3 4.7 Chloride Level 103 105 Carbon Dioxide Level 24 26 Anion Gap 14 10 Blood Urea Nitrogen 9 11 Creatinine 0.64 0.57 Glucose Level 171 79 # Calcium Level 8.6 8.3 L Total Bilirubin 1.2 0.9 Direct Bilirubin 0.00 0.00 Indirect Bilirubin 1.2 H 0.9 Aspartate Amino Transf (AST/SGOT) 85 H 68 H Alanine Aminotransferase (ALT/SGPT) 58 47 Alkaline Phosphatase 374 H 276 H Ammonia 33 #H Total Protein 6.7 5.8 L Albumin 3.1 L 2.3 L Globulin 3.60 H 3.50 H Albumin/Globulin Ratio 0.86 0.65 Lipase 232 Medications Medications Current Medications Ferrous Sulfate (Ferrous Sulfate (Ec)) 325 mg DAILY PO Last administered on t 08:55; Admin Dose 325 MG; Start 07/15/17 at 09:00 Magnesium Oxide (Mag-Ox 400) 400 mg DAILY PO Last administered on 07/15/17 08 :55; Admin Dose 400 MG; Start 07/15/17 at 09:00 Montelukast Sodium (Singulair) 10 mg QHS PO ; Start 07/15/17 at 21:00 Ursodiol (Actigall) 300 mg QPM PO ; Start 07/15/17 at 21:00 Acetaminophen (Tylenol Tab) 650 mg Q6H PRN PO PAIN LEVEL 1-3 OR FEVER; Start 07/14/17 at 21:30 Morphine Sulfate (morphine) 2 mg Q4H PRN IV PAIN LEVEL 7-10; Start 07/14/17 at 21:30 Pantoprazole 40 mg 40 mg BID@06,18 IV ; Start 07/15/17 at 18:00 Ceftriaxone Sodium (Rocephin) 50 ml @ 100 mls/hr Q24H IVPB Last administered on 07/15/17 10:51; Admin Dose 100 MLS/HR; Start 07/15/17 at 10:00 Copies To: CC: HARISH BLACKWOOD MD, ANASTASIA NP Jul 15, 2017 11:41
[2017-07-15] MEDS: SOD CHLORIDE 0.9% 1,000 ML IV SCH ×2 (12:14→20:50)
[2017-07-15] MEDS: PANTOPRAZOLE 40 MG INJ IV SCH (17:34)
--- NOTE | 2017-07-15 18:42 | HPN ---
Date/Time of Note Date/Time of Note DATE: 07/15/17 TIME: 18:41 Interval H&P Admission Note Pt. seen H&P reviewed: No system changes HARISH BLACKWOOD MD Jul 15, 2017 18:42
[2017-07-15] MEDS ORDERED: PROPOFOL 20 ML ONE (18:55)
[2017-07-15] MEDS ORDERED: LIDOCAINE 2% (SDV) 5 ML INJ ONE (18:55)
[2017-07-15] MEDS ORDERED: ONDANSETRON 4 MG INJ IV PRN (19:00)
--- NOTE | 2017-07-15 19:05 | OPPN ---
Date/Time of Note Date/Time of Note DATE: 07/15/17 TIME: 19:02 Proc Note GI Procedure Date 07/15/17 Indication: other (GI bleeding) Pre-procedure Diagnosis GI bleeding Post-procedure Diagnosis impression: Grade I/IV esophageal varices. Portal hypertensive gastropathy versus gastritis. Rule out H. pylori infection. Biopsies obtained Otherwise normal EGD. Plan: Continue present regimen Advance diet as tolerated Monitor H&H transfuse as necessary . Procedure Performed: Endoscopy (With biopsies) Surgeon HARISH BLACKWOOD MD See signature line [employer] Operator none Anesthesia Type: MAC Anesthesiologist: ASUNCION LEO MD Tourniquet Time none EBL none Transfusion required none Biopsy 1: Gastric antrum Grafts/Implants none Tubes/Drains none Complication(s) none Disposition: PACU Procedure Description After informed consent, with the patient/relatives understanding the procedure, its indications, potential risks and complications, including but not limited to : allergic reaction, bleeding, perforation or infection, and after all pertinent questions were answered to the patients satisfaction, the patient/ relatives signed witnessed informed consent. Following this, premedication was administered slowly IV push under careful cardiovascular and respiratory monitoring with pulse oximetry, automatic blood pressure, and residential monitor. Once the sedative effect was achieved the patient was place in the left lateral decubitus, the panendoscope was introduced and advanced under visual control. Careful examination of the upper gastrointestinal tract, both on insertion as well as withdrawal of the instrument disclosing the following findings: ESOPHAGUS: the mucosa of the entire esophagus was carefully examined and showed the following findings: There are grade I/IV esophageal varices. Otherwise the mucosa appears within normal limits. There is no evidence of esophagitis, neoplasm, or stricture. No Hiatal Hernia identified. STOMACH: Upon entrance to the stomach air was insufflated, the gastric chicas distended normally. The mucosa of the fundus, body and antrum of the stomach was carefully examined both head-on and on retroflexion, and showed the following findings: There is moderate erythema, edema and congestion of the mucosa consistent with portal hypertensive gastropathy versus gastritis.. Biopsies were obtained to rule out H. pylori infection. Otherwise the mucosa appears within normal limits with no abnormalities. There is no evidence of ulcers or neoplasm. PYLORUS: The pylorus was carefully examined and showed the following findings: the pylorus appears patent and within normal limits, with no evidence of gastric outlet obstruction. DUODENUM: The duodenal mucosa was carefully examined in the duodenal bulb as well as the second portion of the duodenum and showed the following findings: the mucosa appears unremarkable with no evidence of duodenitis, ulcer or neoplasm. Copies To: CC: HARISH BLACKWOOD MD, MORDO MD Jul 15, 2017 19:05
[2017-07-15 20:32] LABS: HEMATOCRIT 27.9 % (37.0-47.0); HEMOGLOBIN 9.4 g/dl (12.0-16.0)
[2017-07-15] MEDS ORDERED: MONTELUKAST 10 MG TAB PO SCH (21:00)
[2017-07-15] MEDS ORDERED: URSODIOL 300 MG CAP PO SCH (21:00)
[2017-07-16] VITALS (8 sets, daily range): BP systolic 95–104; BP diastolic 53–61; PULSE 63–72; RESP 16–20
[2017-07-16] MEDS: PANTOPRAZOLE 40 MG INJ IV SCH ×2 (06:30→17:34)
[2017-07-16 06:36] LABS: HEMATOCRIT 25.9 % (37.0-47.0); HEMOGLOBIN 8.7 g/dl (12.0-16.0)
[2017-07-16] MEDS: FERROUS SULFATE (EC) 325 MG TAB PO SCH (09:45)
[2017-07-16] MEDS: MAGNESIUM OXIDE 400 MG TAB PO SCH (09:45)
[2017-07-16] MEDS: CEFTRIAXONE 1 GM/50 ML (PMX) 50 ML IVPB SCH (11:26)
[2017-07-16] MEDS: SOD CHLORIDE 0.9% 1,000 ML IV SCH (11:30)
[2017-07-16 11:53] LABS: HEMATOCRIT 27.7 % (37.0-47.0); HEMOGLOBIN 9.2 g/dl (12.0-16.0)
--- NOTE | 2017-07-16 14:36 | PDOCDIS ---
Discharge Instructions DIAGNOSIS Discharge Diagnosis Follow up with your neuro psych sales specialist for further care Return to the hospital if you have anymore bleeding or any other concerning symptoms CONDITION Patient Condition: Fair HOME CARE INSTRUCTIONS: Special Diet: CARDIAC BLANCA JACOBS MD Jul 16, 2017 14:36
--- NOTE | 2017-07-16 14:38 | DS ---
Date/Time of Note Date/Time of Note DATE: 07/16/17 TIME: 14:37 Discharge Summary Admission/Discharge Info Admit Date/Time Jul 14, 2017 at 19:45 Discharge Date/Time Discharge Diagnosis Follow up with your dairy associate for further care Return to the hospital if you have anymore bleeding or any other concerning symptoms Patient Condition: Fair Hospital Course Patient underwent serial H/H which were stable, she did not required transfusion. Underwent upper endoscopy showing no evidence of active bleeding, grade 1 varices. She was then discharged to further care per her outside dairy associate and encouraged to return if bleeding recurs. Home Meds Reported Medications Ferrous Sulfate* (Ferrous Sulfate*) 325 Mg Tabec, 325 MG PO DAILY, TAB 07/14/17 Spironolactone* (Aldactone*) 25 Mg Tablet, 150 MG PO DAILY, #30 TAB 07/14/17 Esomeprazole Mag Trihydrate (Nexium) 40 Mg Capsule.dr, 40 MG PO DAILY, #30 CAP 07/14/17 Magnesium Oxide* (Magnesium Oxide*) 400 Mg Tablet, 400 MG PO DAILY, TAB 04/09/17 Furosemide* (Furosemide*) 40 Mg Tablet, 40 MG PO DAILY, TAB 02/10/17 Montelukast Sodium* (Montelukast Sodium*) 10 Mg Tablet, 10 MG PO QHS, #30 TAB 10/13/15 Propranolol Hcl* (Propranolol Hcl*) 20 Mg Tablet, 25 MG PO BID, TAB 10/13/15 Ursodiol* (Ursodiol*) 300 Mg Capsule, 300 MG PO QPM, CAP 10/13/15 Discontinued Reported Medications Obeticholic Acid (Ocaliva) 5 Mg Tablet, 5 MG PO DAILY, TAB 04/29/17 Pantoprazole* (Pantoprazole*) 40 Mg Tablet.dr, 40 MG PO AC BREAKFAST, TAB 04/09/17 Lactulose (Generlac) 10 Gm/15 Ml Solution, 20 GM PO TID 04/09/17 Spironolactone* (Spironolactone*) 100 Mg Tablet, 150 MG PO DAILY, TAB 03/22/17 Primary Care Provider Tania Lentz Pending Labs Laboratory Tests Test 07/15/17 20:20 07/16/17 05:53 07/16/17 11:41 Hemoglobin 9.4g/dl (12.0-16.0) 8.7g/dl (12.0-16.0) 9.2g/dl (12.0-16.0) Hematocrit 27.9% (37.0-47.0) 25.9% (37.0-47.0) 27.7% (37.0-47.0) BLANCA JACOBS MD Jul 16, 2017 14:38
--- NOTE | 2017-07-16 14:47 | PN ---
Date/Time of Note Date/Time of Note DATE: 07/16/17 TIME: 14:31 Assessment/Plan VTE Prophylaxis VTE Prophylaxis Intervention: ambulation Lines/Catheters IV [facility] Assessment/Plan Chief Complaint/Hosp Course Assessment: No evidence of GI bleed Hemoglobin stable Hepatocellular carcinoma Plan: Status post EGD 07/1515 Grade I/IV esophageal varices. Portal hypertensive gastropathy versus gastritis Otherwise normal EGD Regular diet Possible discharge home today Subjective: Patient is feeling well today. She is eating regular diet. Had a bowel movement today. Today she has been spitting small amount of blood again, most likely due to dry mucous membranes causing nose bleeding. Patient is stable enough to go home from GI standpoint . All laboratory results and imaging have been reviewed. Consultation has been performed in collaboration with PHYSICAL EXAMINATION: GENERAL: Well developed, well nourished, alert & oriented x 3, in no acute distress SKIN: No lesions, no stigmata chronic liver disease, no evidence of bleeding diathesis LYMPHATIC: No palpable lymphadenopathy. HEAD: Normocephalic, atraumatic, no tenderness. EYES: Pupils equal reactive to light and accommodation, full extraocular movements, sclera clear, non-icteric, no discharge. EARS/NOSE AND THROAT: Ears normal, nose normal, oropharynx normal, oral membranes well hydrated without lesions. NECK: Supple, no masses, thyroid normal, JVP within normal limits, carotids normal without bruits. CHEST: Inspection within normal limits. CARDIOVASCULAR: Heart: Regular rate and rhythm, no murmurs, gallops or rubs. Peripheral pulses present within normal limits, no cyanosis, clubbing or edemas. No pulsatile abdominal mass RESPIRATORY: Lungs clear to auscultation and percussion, no wheezing, no rubs GASTROINTESTINAL AND LIVER: Abdomen: Soft, non tenderness, non-distended, no hernias, no masses, no organomegaly, no ascites, no guarding, no rebound tenderness, normoactive bowel sounds. Rectal: Deferred. GENITOURINARY: Female genitalia within normal limits.] EXTREMITIES: No cyanosis, clubbing or edema. Problems: Exam/Review of Systems Vital Signs Vitals Vital Signs Date Time Temp Pulse Resp B/P Pulse Ox O2 Delivery O2 Flow Rate FiO2 07/16/17 12:41 97.8 74 18 104/58 100 07/15/17 20:35 Room Air 07/14/17 18:15 2 Intake and Output 07/15/17 07/15/17 07/16/17 14:59 22:59 06:59 Intake Total 50 ml 300 ml 900 ml Balance 50 ml 300 ml 900 ml Results Result Diagram: 07/16/17 1141 07/15/17 0714 Results 24 hrs Laboratory Tests Test 07/15/17 20:20 07/16/17 05:53 07/16/17 11:41 Hemoglobin 9.4 L 8.7 L 9.2 L Hematocrit 27.9 L 25.9 L 27.7 L Medications Medications Current Medications Ferrous Sulfate (Ferrous Sulfate (Ec)) 325 mg DAILY PO Last administered on 09:45; Admin Dose 325 MG; Start 07/15/17 at 09:00 Magnesium Oxide (Mag-Ox 400) 400 mg DAILY PO Last administered on 07/16/17 09 :45; Admin Dose 400 MG; Start 07/15/17 at 09:00 Montelukast Sodium (Singulair) 10 mg QHS PO Last administered on 07/15/17 20: 49; Admin Dose 10 MG; Start 07/15/17 at 21:00 Ursodiol (Actigall) 300 mg QPM PO Last administered on 07/15/17 20:49; Admin Dose 300 MG; Start 07/15/17 at 21:00 Acetaminophen (Tylenol Tab) 650 mg Q6H PRN PO PAIN LEVEL 1-3 OR FEVER Last administered on 07/16/17 01:34; Admin Dose 650 MG; Start 07/14/17 at 21:30 Morphine Sulfate (morphine) 2 mg Q4H PRN IV PAIN LEVEL 7-10; Start 07/14/17 at 21:30 Pantoprazole 40 mg 40 mg BID@06,18 IV Last administered on 07/16/17 06:30; Admin Dose 40 MG; Start 07/15/17 at 18:00 Ceftriaxone Sodium 50 ml @ 100 mls/hr Q24H IVPB Last administered on 11:26; Admin Dose 100 MLS/HR; Start 07/15/17 at 10:00 Sodium Chloride (NS) 1,000 ml @ 60 mls/hr [id number] IV Last administered on 12/ 16/17at 11:30; Admin Dose 60 MLS/HR; Start 07/15/17 at 11:30 Copies To: CC: HARISH BLACKWOOD MD, ANASTASIA NP Jul 16, 2017 14:47
== END 2017-07-16 17:00 | disposition home or self-care (01) | DRG 378 ==
LOC: E/R 11:55 → MS4 19:45
PROVIDERS: ADMIT Family Medicine; ATTEND Family Medicine
PROC: 0DJ08ZZ Inspection of Upper Intestinal Tract, Via Natural or Artificial Opening Endoscopic (ICD-10-PCS; principal; 2017-07-15 20:30)
DX: K92.2 Gastrointestinal hemorrhage, unspecified (principal); C22.7 Other specified carcinomas of liver; D61.818 Other pancytopenia; K76.6 Portal hypertension; Z76.82 Awaiting organ transplant status; K31.89 Other diseases of stomach and duodenum; K29.70 Gastritis, unspecified, without bleeding; I85.10 Secondary esophageal varices without bleeding
CPT/HCPCS: 36415; 80053; 82140; 83690; 84703; 85014; 85018; 85025; 85610; 85730; 86850; 86900; 86901; 88305; 88312; 93005; 96374; 96375; 96376; C9113; J0696; J1170; J2405; J7030; J7040